=== PATIENT | female | born 1965 | race Caucasian/White ===

== ENCOUNTER → 2017-10-11 11:32 | Outpatient (CLI) | payer OTHER, SELFPAY ==
[2017-10-14 09:33] LABS: HPV Reflexed? NOT INDICATED
== END ==
PROVIDERS: Visit Provider Obstetrics & Gynecology
DX: Z01.419 Encounter for gynecological examination (general) (routine) without abnormal findings (principal); Z12.4 Encounter for screening for malignant neoplasm of cervix
CPT/HCPCS: 88175; G0145

== ENCOUNTER → 2017-11-02 07:00 | Outpatient (CLI) | payer OTHER, SELFPAY ==
--- NOTE | 2017-11-02 07:00 | DT_ITS ---
This patient was seen during an EMR downtime October 31, 2017 - November 07, 2017. This patient may have a combination of paper and electronic documentation or all paper documentation. All documentation is viewable within the e-chart portion of [employer] for each patient visit.
--- NOTE | 2017-11-02 07:13 | BI_ITS ---
MAMMOGRAPHY - BILATERAL SCREENING REASON FOR EXAM: Female, 52 years old. Routine annual screening examination. PERTINENT HISTORY: Non-contributory. Remote stereotactic biopsy in the upper outer quadrant of the left breast. TECHNIQUE: Digital bilateral breast cassandra (3D mammographic acquisition) in the CC and MLO projections. 2-D mediolateral oblique (MLO) and craniocaudad (CC) views of both breasts were obtained. CAD: Full Field Digital Mammography with Computer Added Detection was performed. COMPARISON: Comparison is made with prior study dated March 18, 2014 and December 15, 2015. FINDINGS: Breast Composition: The breasts are heterogeneously dense, which may obscure small masses. A tissue clip marker is seen in a small stable nodular density in the upper outer quadrant of the left breast. There now is evidence of a microcalcifications in the upper slightly deep medial portion of the left breast. These are new as compared to prior study. A biopsy is recommended for further evaluation. No other significant abnormalities are identified. BI/SCREENING MAMM (CAD), BILAT IMPRESSION: Microcalcifications in the upper slightly medial deep portion of the left breast as described. A biopsy is recommended for further evaluation. ASSESSMENT CATEGORY: BIRADS Category 4: Suspicious - Biopsy Should Be Considered. A letter regarding these results will be sent to the patient by the facility within 30 days. Approximately 10% of breast cancers are not detected by mammography. A normal mammogram should not delay biopsy of a clinically suspicious abnormality. [id number] Electronically Signed: Rodrick Patten MD at 8:27 EDT Tel [phone], Service support ,
== END ==
PROVIDERS: Visit Provider Obstetrics & Gynecology
DX: Z12.31 Encounter for screening mammogram for malignant neoplasm of breast (principal)
CPT/HCPCS: 77063; 77067

== ENCOUNTER → 2017-11-23 15:21 | Outpatient (CLI) | payer OTHER, SELFPAY ==
--- NOTE | 2017-11-23 15:23 | US_ITS ---
STUDY: ULTRASOUND BREAST - LEFT REASON FOR EXAM: Female, 52 years old. Abnormal screening mammogram. TECHNIQUE: Axial and longitudinal images of the LEFT breast were performed with a high resolution ultrasound transducer. COMPARISON: Comparison is made with prior mammogram dated November 02, 2017 and prior ultrasound of the left breast dated January 04 FINDINGS: LEFT Breast: There is a 1.1 cm x 0.6 cm x 1 cm hypoechoic irregular solid nodule at the 10:00 position of the breast at 3 cm from the nipple. Posterior shadowing is seen. This has changed as compared to prior study. A biopsy is recommended. US/Breast Limited Unilateral IMPRESSION: 1.1 cm x 0.6 cm x 1.0 cm hypoechoic irregular solid nodule at the 10:00 position breast at 3 cm from nipple. A biopsy is recommended. ASSESSMENT CATEGORY: BIRADS Category 4: Suspicious - Biopsy Should Be Considered. A letter regarding these results will be sent to the patient by the facility within 30 days. Electronically Signed: Rodrick Patten MD at 7:56 EDT Tel [phone], Service support ,
== END ==
PROVIDERS: Visit Provider Surgery
DX: R92.8 Other abnormal and inconclusive findings on diagnostic imaging of breast (principal)
CPT/HCPCS: 76642

== ENCOUNTER → 2017-12-02 13:37 | Outpatient (CLI) | payer OTHER, SELFPAY ==
--- NOTE | 2017-12-02 | BRBX_PTH ---
PATIENT: SHELBY WORKMAN LOC: [facility] U#:[id number] AGE/SX: 59/F ROOM: RE12/02/[address]: Dr. 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 3.2 mm AM:mago 12/06/17 COMMENT ER/FL/Uyh7njn studies are being performed on sections of tumor and the results from this study will be reported separately ([id number]). Case has been reviewed in consultation with Dr. Angel who concurs with the above diagnosis. IDC:SJ MICROSCOPIC DESCRIPTION Slides are reviewed. GROSS DESCRIPTION Received in fixative is one container labeled with the patient's name and designated left breast. The specimen consists of multiple elongated fragments of ferrell-yellow fibroadipose tissue that in aggregate measure 1.5 x 0.3 x 0.1 cm. The entire specimen is submitted in one cassette. / MARZENA:mago 12/05/17 TC:0 CPT: 80376
--- NOTE | 2017-12-02 | IMM_PTH ---
PATIENT: SHELBY WORKMAN LOC: [facility] U#:[id number] AGE/SX: 59/F ROOM: RE12/02/[address]: Dr. Dameon Vo MD : 1965 BED: DIS: SPEC #: [id number] RECD: 12/06/17 13:55 STATUS: CARYN BRAD #: [id number] ODALIS: 12/02/17 00:[address]: Dameon Vo DEPT: IMMUNOHISTOCHEMISTRY RECD BY: Mary Anne Erickson Tissues: Left breast, NOS Procedures: CALPONIN-1 (add) CK5-6 (add) CK8 (add) E-CAD (add) HER2 SHABBIR (add) KI-67 (add) P53 (add) KS (add) P40 (add) ER (initial) PHYSICIAN & INSTITUTION [facility] [phone] SPECIMEN INFORMATION: Tissue Source: Left breast tissue Clinical Info: Abnormal left breast ultrasound Specimen Number: [id number] CPT code: 96877, 32406 x6, 04958 x3 METHODOLOGY: Deparaffinized sections of prefer/formalin-fixed tissue or PAP/DQ stained slides are incubated with monoclonal/polyclonal antibodies/oligonucleotide probes. Localization is made via biotin free immunoperoxidase method. Appropriate controls are performed and reacted as expected. Results on target cell population are indicated in the following table: RESULTS: ANTIBODY / CLONE RESULT P53 (DO-7) positive, >50% Ki-67 (30-9) positive, moderate CK8 (10itkoC82) positive CK5-6 (D5 & 1684) negative Calponin-1 (NN539I) negative P40 (BC28) negative E-Cad (ECH-6) positive MORPHOMETRIC ANALYSIS ER (clone 6F11) >95%, moderate KS (clone 16/1E2) 50%, moderate Her-2Neu (clone CB11) 3+ The prognostic test for HER2 is performed on formalin-fixed paraffin embedded tissue. A 3+ (positive) staining pattern is defined as intense, homogeneous, complete, circumferential membranous staining in >10% of contiguous tumor cells. A similar weak (2+) staining pattern is interpreted as equivocal. DEDRA follow-up testing is recommended for all equivocal cases. Positivity/negativity for ER/KS is reported if > or < 1% of the tumor cells are immuno- reactive, respectively. The ASCO/CAP criteria is used for scoring. Reference: Journal of Clinical Oncology, 2013; 31:3687-0066 & 2010; 16:4588-1738. Duration of fixation: __ Hrs; Sample Adequate: Yes. These assays have not been validated on decalcified tissues. Results should be interpreted with caution given the likelihood of false negativity on decalcified specimens. These tests were developed and their performance characteristics determined by [facility]. They may not have been cleared or approved by the U.S. Food and Drug Administration. The FDA has determined that such clearance or approval is not necessary. INTERPRETATION: Left breast, core biopsy: Invasive ductal carcinoma, nuclear grade 3/3. Positive for estrogen receptors (favorable prognostic indicator). Positive for progesterone receptors (favorable prognostic indicator). Positive for overexpression of PPM7brj. AM:mago 12/08/17 Case has been reviewed in consultation with Dr. Angel who concurs with the above diagnosis. IDC:SJ
== END ==
PROVIDERS: Visit Provider Surgery
DX: R92.8 Other abnormal and inconclusive findings on diagnostic imaging of breast (principal); C50.912 Malignant neoplasm of unspecified site of left female breast
CPT/HCPCS: 88305; 88341; 88342

== ENCOUNTER → 2017-12-06 07:54 | Outpatient (CLI) | payer OTHER, SELFPAY ==
--- NOTE | 2017-12-06 | IMM_PTH ---
PATIENT: SHELBY WORKMAN LOC: [facility] U#:[id number] AGE/SX: 59/F ROOM: RE12/06/[address]: Dr. Dameon Vo MD : 1965 BED: DIS: SPEC #: [id number] RECD: 12/07/17 13:44 STATUS: CARYN REMarline #: [id number] ODALIS: 12/06/17 00:[address]: Dameon Vo DEPT: IMMUNOHISTOCHEMISTRY RECD BY: Mary Anne Erickson ENTERED: 12/07/17 13:45 SP TYPE: IMMUNO OTHR DR: No Primary Care Phys Tissues: Left breast, NOS Procedures: E-CAD (initial) CALPONIN-1 (add) CK8 (add) P40 (add) PHYSICIAN & INSTITUTION [facility] [phone] SPECIMEN INFORMATION: Tissue Source: Left breast tissue Clinical Info: Left breast 10 o?clock microcalcifications Specimen Number: [id number] CPT code: 81597, 06838 x3 METHODOLOGY: Deparaffinized sections of prefer/formalin-fixed tissue or PAP/DQ stained slides are incubated with monoclonal/polyclonal antibodies/oligonucleotide probes. Localization is made via biotin free immunoperoxidase method. Appropriate controls are performed and reacted as expected. Results on target cell population are indicated in the following table: RESULTS: ANTIBODY / CLONE RESULT E-Cad (ECH-6) positive CK8 (18dyezK84) positive P40 (BC28) positive Calponin-1 (CN018R) positive These tests were developed and their performance characteristics determined by [facility]. They may not have been cleared or approved by the U.S. Food and Drug Administration. The FDA has determined that such clearance or approval is not necessary. INTERPRETATION: Left breast, stereotactic biopsy: Ductal carcinoma in situ. SJ:mago 12/07/17
--- NOTE | 2017-12-06 08:30 | BRBX_PTH ---
PATIENT: SHELBY WORKMAN LOC: [facility] U#:[id number] AGE/SX: 59/F ROOM: RE12/06/[address]: Dr. Dameon Vo MD : 1965 BED: DIS: SPEC #: [id number] RECD: 12/06/17 09:45 STATUS: CARYN BRAD #: [id number] ODALIS: 12/06/17 08:[address]: Dameon Vo DEPT: SURGICAL PATHOLOGY RECD BY: Cora Whiting ENTERED: 12/06/17 10:21 SP TYPE: BREAST BX OTHR DR: No Primary Care Phys Tissues: Left breast, NOS Procedures: Surgery Specimen Level IV HEADER OPERATION: Left stereotactic breast biopsy PRE-OP DIAGNOSIS: Left breast 10 o?clock microcalcifications TISSUE SUBMITTED: Left breast core tissue ISCHEMIC TIME: 1 minute FIXATION TIME: 10.5 hours MICROSCOPIC DIAGNOSIS Left breast, 10 o?clock microcalcification, stereotactic core biopsy: Ductal carcinoma in situ with the following characteristics: Pattern ? solid and comedo pattern. Nuclear Grade ? high nuclear grade. Necrosis ? present, central (expansive comedo necrosis). Calcifications - present See comment. MARZENA:mago 12/07/17 COMMENT Immunohistochemistry ([id number]) supports the above diagnosis. Please make reference to previous specimen [id number], left breast, ultrasound guided core biopsy with diagnosis of invasive ductal carcinoma. Case has been reviewed in consultation with Dr. Arango who concurs with the above diagnosis. IDC:AM MICROSCOPIC DESCRIPTION Slides are reviewed. GROSS DESCRIPTION Received is one container labeled with the patient's name and not further designated. The specimen consists of multiple fragments of ferrell-yellow fibroadipose tissue that in aggregate measure 5 x 3 x 0.2 cm. The entire specimen is submitted in two cassettes. / MARZENA:mago 12/06/17 TC:0 CPT: 06689
--- NOTE | 2017-12-06 08:55 | OP.PCM_ITS ---
Problem List (1) Abnormal mammogram of left breast Status: Acute Report of Operation Date of Procedure: 12/06/17 Pre-Operative Diagnosis: Clustered microcalcifications upper inner left breast Post-Operative Diagnosis: Same Surgery/Procedure Performed:: Stereotactic needle core biopsy upper inner left breast clustered calcifications Description of Surgical Findings:: Timeout and informed consent was obtained. 52-year-old female was taken to the stereotactic room. She was placed prone on the table. The left breast was placed in the cc view. The clustered microcalcifications in question were identified. There was no marking clip in place from her recent ultrasound- guided biopsy. Stereotactic images were obtained. Digital information was obtained on the single target site. The breast was prepped with Betadine. 1% lidocaine was used as local anesthetic. A total of 9 cc was used. A small stab incision was created. An 8-gauge resolve needle was advanced to prefire depth. Prefire films were obtained. The device was then fired. 6 separate cores were obtained. Specimen mammograms were obtained. All cores had areas of microcalcifications present. A mini marking clip was left at the 12 o'clock position. She was released from the device. Pressure was held for hemostasis. The specimens were immediately transferred to formalin. Blood loss minimal no apparent complications. She was given activity and wound care instructions after Steri-Strips Telfa and OpSite dressings applied. She is scheduled to return to the office in 2 days time to discuss pathology. Progress and prognosis at this point felt to be good. Specimens include the cores. Drains none. Blood loss minimal Dameon Vo M.D., F.A.C.S. Type of Anesthesia:: Local
== END ==
PROVIDERS: Visit Provider Surgery
DX: D05.12 Intraductal carcinoma in situ of left breast (principal); R92.8 Other abnormal and inconclusive findings on diagnostic imaging of breast
CPT/HCPCS: 19081; 88305; 88341; 88342; J7050

== ENCOUNTER → 2017-12-15 13:20 | Outpatient (CLI) | payer OTHER, SELFPAY ==
--- NOTE | 2017-12-15 13:48 | MRI_ITS ---
STUDY: BILATERAL BREAST MR WITHOUT AND WITH CONTRAST REASON FOR EXAM: Female, 52 years old. Biopsy-proven left breast cancer. History of 2 biopsies. TECHNIQUE: Multi-sequence multi-echo imaging of both breasts was performed with a dedicated breast coil. T1-weighted and T2-weighted images were performed before the administration of contrast. T1-weighted images were also performed after the administration of 8 mL of Gadavist contrast intravenously without complications. COMPARISON: Ultrasound images dated November 23, 2017, bilateral screening mammogram dated November 02, 2017 and stereotactic images dated December 06, 2009. FINDINGS: RIGHT BREAST: The breast tissue is scattered fibroglandular densities with moderate background enhancement. There is asymmetric glandular tissue in the upper outer quadrant of the right breast showing fibrocystic-type enhancement. There are no abnormal enhancing masses or areas of non-mass enhancement in the right breast. LEFT BREAST: The breast tissue is scattered fibroglandular densities with moderate background enhancement. In the upper inner quadrant of the left breast there is an area of clumped kgj-ykmm-lvnn enhancement measuring approximately 4.5 cm x 3.3 cm x 4 cm. This enhancement is confined to the upper inner quadrant of the breast. There is a tissue clip artifact superiorly from one biopsy. There is a seroma cavity more inferiorly and medially measuring 1.4 x 1.3 cm with a tissue clip artifact within it. There are no enlarged or abnormal lymph nodes. There is no abnormality in the visualized regions of the chest or liver. MRI/Breast w/o and/or W Cont Bilat IMPRESSION: Moderate enhancement of both breasts as described. Clumped tae-isiq-rbni enhancement in the upper inner quadrant corresponding to the abnormality seen on mammogram measuring 4.5 cm x 3.3 cm x 4 cm. No abnormal adenopathy present. CATEGORY: BIRADS Category 6: Known Biopsy-Proven Malignancy - Appropriate Action Should Be Taken. A letter regarding these results will be sent to the patient by the facility within 30 days. Electronically Signed: Myke Grullon MD at 19:56 EDT , Service support ,
== END ==
PROVIDERS: Visit Provider Surgery
DX: C50.912 Malignant neoplasm of unspecified site of left female breast (principal)
CPT/HCPCS: 77059; A9585; C8908

== ENCOUNTER → 2017-12-27 12:59 | Outpatient (CLI) | payer OTHER, SELFPAY ==
--- NOTE | 2017-12-27 13:08 | ECHOD_ITS ---
Reason For Study: PRE CHEMO Procedure This was a 2D Doppler, Color Flow transthoracic echocardiogram. The exam was of adequate technical quality. Exam performed in department. Left Ventricle Normal LV size. Apical false tendon noted. Left ventricular systolic function is normal. The estimated ejection fraction is 65 %. Normal diastology for age. No regional wall motion abnormalities noted. Right Ventricle Normal RV size. Normal systolic function. Atria Normal left atrium. Normal right atrium. No doppler evidence for ASD. Mitral Valve There is no mitral annular calcification. Normal mitral valve. Trivial mitral valve insufficiency. Tricuspid Valve Normal tricuspid valve. Trivial tricuspid valve insufficiency. Aortic Valve Trisinus/trileaflet aortic valve. Mild focal aortic valve thickening. Pulmonic Valve The pulmonic valve is not well visualized. Trivial pulmonic valve insufficiency. Great Vessels Normal sized aortic root. Pericardium/Pleural No pericardial effusion. MMode/2D Measurements & Calculations LVIDd: 4.3 cm IVSd: 0.82 cm Ao root diam: 3.1 cm LVIDs: 2.8 cm LVPWd: 0.90 cm LA dimension: 3.3 cm RVDd: 3.1 cm FS: 33.9 % LAV(MOD-bp): 46.6 ml LA A4 area: 14.8 cm2 RA A4 area: 12.2 cm2 LAV(MOD-bp) Indexed: 26.2 ml/m2 LAV(MOD-sp2): 46.7 ml LAV(MOD-sp4): 40.2 ml Time Measurements MV dec time: 0.25 sec Doppler Measurements & Calculations MV E max anibal: 88.4 cm/sec Lat Peak E' Anibal: 9.5 cm/sec Med Peak E' Anibal: 7.5 cm/sec MV A max anibal: 72.9 cm/sec E/E' lat: 9.3 E/E' med: 11.8 MV E/A: 1.2 Ao V2 max: 128.4 cm/sec LV V1 max: 100.7 cm/sec Ao max P.6 mmHg LV V1 max P.1 mmHg Interpretation Summary The estimated ejection fraction is 65 %. Apical false tendon noted. Trivial mitral valve insufficiency. Trivial tricuspid valve insufficiency. Mild focal aortic valve thickening. Trivial pulmonic valve insufficiency. Normal diastology for age. Comment: GLPS average: - 23% (normal range: -18% or more negative) Ordering Physician: [place] Pugh Referring Physician: [place] Pugh D Performed By: Marija Cornejo, MIGUEL, RVT
== END ==
PROVIDERS: Visit Provider Internal Medicine Hematology & Oncology
DX: Z01.818 Encounter for other preprocedural examination (principal)
CPT/HCPCS: 93306

== ENCOUNTER 2017-12-28 11:29 | Day surgery (SDC) | payer OTHER, SELFPAY ==
[2017-12-28] VITALS (7 sets, daily range): BP systolic 120–149; BP diastolic 79–90; PULSE 76–91; RESP 16–18; TEMP 36–36.6; O2SAT 78–100; BMI 27.6
--- NOTE | 2017-12-28 11:38 | EKG12_ITS ---
Test Reason : PREOP Blood Pressure : / mmHG Vent. Rate : 087 BPM Atrial Rate : 087 BPM P-R Int : 114 ms QRS Dur : 074 ms QT Int : 368 ms P-R-T Axes : 016 044 048 degrees QTc Int : 442 ms Normal sinus rhythm Normal ECG Confirmed by RONNA BAUTISTA, ALONZO ([id number]), image editor ANTONIETTA ALLEN ([id number]) on 01/02/2018 4:08:29 PM Referred By: Dameon Vo Confirmed By:ALONZO FRIEND MD
[2017-12-28 12:06] LABS: Mean Corp Hgb Conc 32.4 g/gl (32-36); Mean Corpuscular Hgb 25.4 pg (27.0-32.0); Mean Corpuscular Volume 78.2 fL (81-99); Mean Platelet Vol. 9.5 fl (6.2-12.0); Platelet Count 337 K/mm3 (150-450); RBC Distribution Width CV 16.1 % (11.6-14.6); Red Blood Count 4.73 M/mm3 (4.2-5.4); White Blood Count 5.3 K/mm3 (4.4-11.0)
[2017-12-28 12:07] LABS: Scan Indicated on CBC? Y/N NO
[2017-12-28 12:23] LABS: Anion Gap 8 (5-15); BUN 10 mg/dL (7-18); BUN/Creat Ratio 9.4 RATIO (10-20); Calcium,Total 8.7 mg/dL (8.5-10.1); Chloride 108 mmol/L (98-107); Creatinine, Serum 1.06 mg/dL (0.55-1.02); EST Glomerular Filtration Rate 58 mL/min (>60); Est Glom Filt Rate - Afr Amer 70 mL/min (>60); Estimated Creatinine Clearance 53.61 ml/min; Glucose 94 mg/dL (74-106); Potassium 4.3 mmol/L (3.5-5.1); Sodium Level 140 mmol/L (136-145)
--- NOTE | 2017-12-28 13:26 | DCINST_ITS ---
Discharge Diet: No Restrictions - Pain medication may cause nausea. You should typically eat light foods as you take your pain medication. Discharge Activity: Return to Normal Activity, May Shower - Leave the bandage on for 2-3 days. When you remove the bandage, leave the steri-strips intact until they fall off. Additional Activity Instructions:: May not drive, work with heavy equipment, or sign legal documents for [address] if you are no longer taking narcotic pain medications. Additional Dressing/Incision Instructions:: Leave the bandage on for 2-3 days. When you remove the bandage, leave the steri-strips intact until they fall off. Allergies/Adverse Reactions: Allergies No Known Allergies Allergy (Verified 12/27/17 14:44) Medications to take at Discharge cetirizine 10 mg capsule 10 mg PO QDAY 12/14/17 diazepam 5 mg tablet 5 mg PO .4x/day PRN #30 tab 12/14/17 Dexamethasone [Decadron] 8 mg PO BID 63 Days #36 tab 12/21/17 Lidocaine/Prilocaine [Lidocaine-Prilocaine Cream] 30 gm TP DAILY PRN PRN #1 cream..g. 12/21/17 Ondansetron HCl [Zofran] 4 mg PO Q8H PRN PRN #30 tab 12/21/17 Primary Care Physician: Care Physician,No Primary [Primary Care Provider] - Test Results: Test results from this visit will be discussed in further detail at your follow- up appointment, if applicable. Please Follow Up With: Dameon Vo MD - [phone] When: Office follow up once completed with oncology care
[2017-12-28] MEDS: Cefazolin 2 GM in 0.9% Normal Saline 100 ML IV (13:54)
[2017-12-28] MEDS: Bupivacaine Mpf 0.5% 30 ML VIAL (14:14)
--- NOTE | 2017-12-28 14:42 | PCM.OPRPT ---
Problem List (1) Cancer of left female breast Status: Acute Qualifiers: Breast location: upper inner quadrant of breast Estrogen receptor status: positive Qualified Code(s): C50.212 - Malignant neoplasm of upper-inner quadrant of left female breast; Z17.0 - Estrogen receptor positive status [ER+] Report of Operation Date of Procedure: 12/28/17 Pre-Operative Diagnosis: Upper inner quadrant left breast cancer Post-Operative Diagnosis: Same Surgery/Procedure Performed:: Right internal jugular 6 [place] PowerPort placement Description of Surgical Findings:: Timeout and informed consent was obtained. 52-year-old female was taken to the operating room. Placed on the table. Ancef 2 g given intravenous preoperatively. The right neck and chest were sterilely prepped draped. 1% lidocaine mixed 50-50 with 0.5% Marcaine was used as local anesthetic. Under ultrasound guidance local was instilled in the right neck. Micropuncture needle inserted. Micropuncture wire inserted. Fluoroscopy demonstrated good positioning. Local instilled down upon the right chest wall. Total of 15 cc was used. Transverse incision was made right midclavicular line second intercostal space. Electrocautery was used to make a subtenons pocket. The tubing was tunneled from the chest to the neck site. Micropuncture sheath was placed over the wire. 3 5 J-wire was inserted. The sheath dilator was inserted. The wire and dilator were removed. The catheter was advanced to the sheath. The sheath was split. The catheter was positioned at the SVC atrial junction. The catheter was amputated to length connected the port and secured there with a port attachment device. The port was placed in the pocket secured with interrupted 2-0 silk. The skin edges were approximated with interrupted 3-0 Vicryl subdermal stitches. The neck was closed with interrupted 5-0 Vicryl subdermal stitches. The port was accessed it aspirated easily was flushed with saline and then 2.5 cc of heparinized saline. Steri-Strips Telfa and OpSite dressings were applied. Sponge and instrument and needle count were reported the surgeon to be correct. Blood loss was minimal. No apparent complication. He tolerated procedure well was taken to the recovery area in satisfactory condition. Stat portable chest x-ray is pending. No specimens. No drains. Blood loss minimal. Dameon Vo M.D., F.A.C.S. Type of Anesthesia:: Local MAC Anesthesiologist: Cecilio Hodge
--- NOTE | 2017-12-28 14:46 | OP.PCM_ITS ---
Problem List (1) Cancer of left female breast Status: Acute Qualifiers: Breast location: upper inner quadrant of breast Estrogen receptor status: positive Qualified Code(s): C50.212 - Malignant neoplasm of upper-inner quadrant of left female breast; Z17.0 - Estrogen receptor positive status [ER+] Report of Operation Date of Procedure: 12/28/17 Pre-Operative Diagnosis: Upper inner quadrant left breast cancer Post-Operative Diagnosis: Same Surgery/Procedure Performed:: Right internal jugular 6 [place] PowerPort placement Description of Surgical Findings:: Timeout and informed consent was obtained. 52-year-old female was taken to the operating room. Placed on the table. Ancef 2 g given intravenous preoperatively. The right neck and chest were sterilely prepped draped. 1% lidocaine mixed 50-50 with 0.5% Marcaine was used as local anesthetic. Under ultrasound guidance local was instilled in the right neck. Micropuncture needle inserted. Micropuncture wire inserted. Fluoroscopy demonstrated good positioning. Local instilled down upon the right chest wall. Total of 15 cc was used. Transverse incision was made right midclavicular line second intercostal space. Electrocautery was used to make a subtenons pocket. The tubing was tunneled from the chest to the neck site. Micropuncture sheath was placed over the wire. 3 5 J-wire was inserted. The sheath dilator was inserted. The wire and dilator were removed. The catheter was advanced to the sheath. The sheath was split. The catheter was positioned at the SVC atrial junction. The catheter was amputated to length connected the port and secured there with a port attachment device. The port was placed in the pocket secured with interrupted 2-0 silk. The skin edges were approximated with interrupted 3- 0 Vicryl subdermal stitches. The neck was closed with interrupted 5-0 Vicryl subdermal stitches. The port was accessed it aspirated easily was flushed with saline and then 2.5 cc of heparinized saline. Steri-Strips Telfa and OpSite dressings were applied. Sponge and instrument and needle count were reported the surgeon to be correct. Blood loss was minimal. No apparent complication. He tolerated procedure well was taken to the recovery area in satisfactory condition. Stat portable chest x-ray is pending. No specimens. No drains. Blood loss minimal. Dameon Vo M.D., F.A.C.S. Type of Anesthesia:: Local MAC Anesthesiologist: Cecilio Hodge
--- NOTE | 2017-12-28 14:55 | RAD_ITS ---
STUDY: X-RAY CHEST REASON FOR EXAM: Female, 52 years old. Port placement. TECHNIQUE: Single AP portable view of the chest. COMPARISON: None. FINDINGS: A right-sided portacatheter has been placed. The tip is in the proximal superior vena cava. The lungs are clear and expanded. There is no demonstrated pleural abnormality. Normal size heart. Normal mediastinum and mandi. Normal visualized pulmonary arteries. Normal visualized aortic arch and descending thoracic aorta. Normal visualized thoracic spine. Normal visualized ribs, clavicles, and shoulders. There is no demonstrated abnormality of the visualized soft tissue structures of the upper abdomen. EKG electrodes are seen.__ RAD/Chest 1 View (Portable) IMPRESSION: The tip of the portacatheter is in the proximal portion of the superior vena cava. There is no evidence of pneumothorax. Electronically Signed: Rodrick Patten MD at 15:40 EDT Tel [phone], Service support ,
== END 2017-12-28 16:16 | disposition home or self-care (01) ==
LOC: SDC 11:30 → AC 11:31
PROVIDERS: Visit Provider Surgery
PROC: (CPT 36561; principal; 2017-12-28 13:45)
DX: C50.212 Malignant neoplasm of upper-inner quadrant of left female breast (principal); Z17.0 Estrogen receptor positive status [ER+]; Z78.0 Asymptomatic menopausal state; Z79.52 Long term (current) use of systemic steroids; Z79.899 Other long term (current) drug therapy; Z98.51 Tubal ligation status
CPT/HCPCS: 36561; 76937; 71045; 77001; 80048; 85027; 93005; J7120; C1788

== ENCOUNTER → 2018-03-30 14:43 | Outpatient (CLI) | payer OTHER, SELFPAY ==
--- NOTE | 2018-03-30 14:46 | ECHODONC_ITS ---
Reason For Study: HIGH RISK MEDS Procedure This was a 2D Doppler, Color Flow transthoracic echocardiogram. Myocardial strain analysis was performed in this exam to aid in the assessment of cardiac function. Exam performed in department. Left Ventricle Normal LV size. Left ventricular systolic function is normal. The estimated ejection fraction is 60 %. The global longitudinal strain is normal. The global longitudinal strain = -21.7 % (normal). No regional wall motion abnormalities noted. Right Ventricle Normal RV size. Normal systolic function. Atria Normal left atrium. Normal right atrium. Mitral Valve Normal mitral valve. Tricuspid Valve Normal tricuspid valve. Aortic Valve Normal aortic valve. Trisinus/trileaflet aortic valve. Pulmonic Valve Normal pulmonic valve. Great Vessels Normal aortic root. Pericardium/Pleural No pericardial effusion. MMode/2D Measurements & Calculations LVIDd: 4.1 cm IVSd: 0.84 cm Ao root diam: 3.2 cm LVIDs: 2.8 cm LVPWd: 0.89 cm RVDd: 2.6 cm FS: 30.6 % LAV(MOD-bp): 30.5 ml LA A4 area: 13.6 cm2 LA dimension(2D): 3.2 cm LAV(MOD-bp) Indexed: 17.9 ml/m2 LAV(MOD-sp2): 31.0 ml LAV(MOD-sp4): 30.5 ml RA A4 area: 11.7 cm2 Time Measurements MV dec time: 0.21 sec Doppler Measurements & Calculations MV E max anibal: 71.2 cm/sec Lat Peak E' Anibal: 8.8 cm/sec Med Peak E' Anibal: 6.7 cm/sec MV A max anibal: 80.6 cm/sec E/E' lat: 8.1 E/E' med: 10.6 MV E/A: 0.88 Ao V2 max: 144.3 cm/sec LV V1 max: 121.5 cm/sec PA V2 max: 96.1 cm/sec Ao max P.3 mmHg LV V1 max P.9 mmHg TR max anibal: 207.4 cm/sec TR max P.2 mmHg Interpretation Summary Normal LV size. Left ventricular systolic function is normal. The estimated ejection fraction is 60 %. The global longitudinal strain is normal. The global longitudinal strain = -21.7 % (normal). The prior global longitudinal strain was -23 % . Ordering Physician: Lindsay Tyler Referring Physician: Lindsay Tyler Performed By: Marija Cornejo, TIFFANIECS, RVT
== END ==
PROVIDERS: Referring Provider Nurse Practitioner Family; Visit Provider Nurse Practitioner Family
DX: Z51.81 Encounter for therapeutic drug level monitoring (principal); C50.912 Malignant neoplasm of unspecified site of left female breast
CPT/HCPCS: 0399T; 93306

== ENCOUNTER → 2018-05-02 15:56 | Outpatient (CLI) | payer OTHER, SELFPAY ==
[2018-04-24 09:51] VITALS: BMI 26.6
--- NOTE | 2018-05-02 15:57 | ECHOCSONC_ITS ---
Reason For Study: MALIGNANT NEOPLASM OF BREAST Procedure This was a 2D Doppler, Color Flow transthoracic echocardiogram. Myocardial strain analysis was performed in this exam to aid in the assessment of cardiac function. Exam performed in department. Left Ventricle Normal LV size. Left ventricular systolic function is normal. The estimated ejection fraction is 60 %. Stage 1 diastolic dysfunction. The global longitudinal strain = -21.1 % (normal). No regional wall motion abnormalities noted. Right Ventricle Normal RV size. Normal systolic function. Atria Normal left atrium. Normal right atrium. Mitral Valve Normal mitral valve. Tricuspid Valve Normal tricuspid valve. Aortic Valve Normal aortic valve. Trisinus/trileaflet aortic valve. Pulmonic Valve Normal pulmonic valve. Great Vessels Normal aortic root. The pulmonary artery is normal size. Normal inferior vena cava. Pericardium/Pleural No pericardial effusion. MMode/2D Measurements & Calculations LVIDd: 4.3 cm IVSd: 0.78 cm LAV(MOD-bp): 34.7 ml LVIDs: 2.8 cm LVPWd: 0.92 cm LAV(MOD-bp) Indexed: 20.3 ml/m2 RVDd: 2.7 cm FS: 34.9 % LAV(MOD-sp2): 39.4 ml LAV(MOD-sp4): 28.6 ml LA A4 area: 13.3 cm2 RA A4 area: 12.0 cm2 Time Measurements MV dec time: 0.32 sec Doppler Measurements & Calculations MV E max anibal: 79.7 cm/sec Lat Peak E' Anibal: 7.7 cm/sec Med Peak E' Anibal: 6.6 cm/sec MV A max anibal: 93.7 cm/sec E/E' lat: 10.4 E/E' med: 12.1 MV E/A: 0.85 Ao V2 max: 155.9 cm/sec LV V1 max: 113.5 cm/sec PA V2 max: 123.4 cm/sec Ao max P.7 mmHg LV V1 max P.2 mmHg TR max anibal: 189.7 cm/sec TR max P.5 mmHg Interpretation Summary Normal LV size. Left ventricular systolic function is normal. The estimated ejection fraction is 60 %. Stage 1 diastolic dysfunction. The global longitudinal strain = -21.1 % (normal). Ordering Physician: [place] Pugh Referring Physician: [place] Pugh Performed By: Marija Cornejo, MIGUEL, RVT
== END ==
PROVIDERS: Referring Provider Internal Medicine Hematology & Oncology; Visit Provider Internal Medicine Hematology & Oncology
DX: C50.912 Malignant neoplasm of unspecified site of left female breast (principal); Z51.81 Encounter for therapeutic drug level monitoring
CPT/HCPCS: 0399T; 93306; C8929

== ENCOUNTER 2018-05-31 13:29 | Observation (INO) | payer OTHER, SELFPAY ==
[2018-05-09 09:52] VITALS: BMI 26.2
[2018-05-31] VITALS (11 sets, daily range): BP systolic 97–131; BP diastolic 60–94; PULSE 79–110; RESP 14–18; TEMP 36.2–37.1; O2SAT 94–99; BMI 27.1
--- NOTE | 2018-05-31 | IMM_PTH ---
PATIENT: SHELBY WORKMAN LOC: MS3 U#:[id number] AGE/SX: 52/F ROOM: MS324 RE05/31/[address]: Dr. Dameon Vo MD : 1965 BED: 1 DIS: 06/01/2018 SPEC #: [id number] RECD: 06/05/18 13:38 STATUS: CARYN REQ #: [id number] ODALIS: 05/31/18 00:[address]: Dameon Vo DEPT: IMMUNOHISTOCHEMISTRY RECD BY: Mary Anne Erickson ENTERED: 06/05/18 13:39 SP TYPE: IMMUNO OTHR DR: No Primary Care Phys Tissues: A - Axillary lymph node, NOS Procedures: CK7 (add) Pankeratin (add) CK7 (initial) PHYSICIAN & INSTITUTION [place] [id number] SPECIMEN INFORMATION: Tissue Source: A - Left sentinel lymph nodes, biopsy Clinical Info: Left breast cancer Specimen Number: [id number] A1 & A2 CPT code: 57077, 85787 x3 METHODOLOGY: Deparaffinized sections of prefer/formalin-fixed tissue or PAP/DQ stained slides are incubated with monoclonal/polyclonal antibodies/oligonucleotide probes. Localization is made via biotin free immunoperoxidase method. Appropriate controls are performed and reacted as expected. Results on target cell population are indicated in the following table: RESULTS: ANTIBODY / CLONE RESULT Block A1 CK7 (OV-TL12/30) negative AE1-3 (AE1/AE3/PCK26) negative Block A2 CK7 (OV-TL12/30) negative AE1-3 (AE1/AE3/PCK26) negative These tests were developed and their performance characteristics determined by [facility]. They may not have been cleared or approved by the U.S. Food and Drug Administration. The FDA has determined that such clearance or approval is not necessary. INTERPRETATION: A. Left sentinel lymph nodes, biopsy: Three out of three lymph nodes negative for carcinoma. AM:mago 06/06/18
--- NOTE | 2018-05-31 | AXNB_PTH ---
PATIENT: SHELBY WORKMAN LOC: MS3 U#:[id number] AGE/SX: 52/F ROOM: UT324 RE05/31/[address]: Dr. Dameon Vo MD : 1965 BED: 1 DIS: 06/01/2018 SPEC #: [id number] RECD: 05/31/18 11:01 STATUS: CARYN REMarline #: [id number] ODALIS: 05/31/18 00:[address]: Dameon Vo DEPT: SURGICAL PATHOLOGY RECD BY: Mary Anne Erickson ENTERED: 05/31/18 11:41 SP TYPE: AX NODE BX OTHR DR: No Primary Care Phys Tissues: Axillary lymph node, NOS Procedures: Frozen Section (charge) Frozen Section Add'l ([facility]) Surgery Specimen Level V HEADER OPERATION: Mastectomy, sentinel node biopsy, Neoprobe PRE-OP DIAGNOSIS: Left breast cancer TISSUE SUBMITTED: A - Left sentinel node sent for frozen at 1054, B - Left breast, suture dumont axillary tail FROZEN SECTION DIAGNOSIS A. Left sentinel lymph nodes, biopsy: Three out of three lymph nodes, negative for metastatic carcinoma. SJ:mago 05/31/18 MICROSCOPIC DIAGNOSIS A. Left axillary sentinel lymph nodes, biopsy: Three out of three lymph nodes negative for carcinoma. B. Left breast, lumpectomy: Focal changes consistent with previous biopsy. Hyalinized fibroadenoma. Fibrocystic change and involutional change. Focal adenosis. Nipple and skin with no pathologic change. No evidence of malignancy. AM:mago 06/07/18 COMMENT A. Immunohistochemistry ([id number]) supports the above diagnosis. Reference is made to the patient's left breast, ultrasound-guided needle core biopsy from 12/06/17 ([id number]) in which invasive ductal carcinoma was identified. Reference is made to the patient's neoadjuvant therapy with TCHP which began on 01/09/18. Case has been reviewed in consultation with Dr. Angel who concurs with the above diagnosis. IDC:MARZENA MICROSCOPIC DESCRIPTION Slides are reviewed. GROSS DESCRIPTION A - Received fresh for frozen section diagnosis labeled with the patient's name is a specimen designated left sentinel lymph node. The specimen consists of a piece of yellow adipose tissue containing nodules consistent with lymph nodes measuring 0.3 to 1 cm in greatest dimension. The lymph nodes are submitted in entirety for frozen section diagnosis as follows: 1 - frozen section, one lymph node, 2 - frozen section, two lymph nodes (smaller lymph node is inked black). / SJ:mago 05/31/18 B - Received in fixative is one container labeled with the patient's name and designated left breast, suture dumont axillary tail. The specimen consists of a mastectomy specimen consisting of breast tissue with overlying skin ellipse. The breast tissue measures 19 x 19 x 5 cm. The overlying skin ellipse measures 16.5 x 5.5 cm. The nipple measures 1 cm in greatest length. The specimen is inked as follows: superior - blue, inferior - green, medial - red, lateral - orange, posterior - black. No skeletal muscle tissue is noted at the posterior margin. The overlying skin ellipse and nipple and areola appear unremarkable. More dictation will follow after additional fixation. / SJ:mago 05/31/18 Sections reveal a ferrell, indurated fibrous area 1 cm away from the closest deep margin and measuring 1.5 x 1 x 0.7 cm. Sections of the breast tissue reveal dense, ferrell-yellow adipose cut surfaces mixed with ferrell-white fibrous areas. Cytogenetics Technologist sections are submitted in 18 cassettes as follows: 1 - nipple, entirely submitted, 2 & 3 - perpendicular margin and skin, 4-7 - indurated mass area, 8-18 - data entry representative sections from the fibrous areas. Sections will be submitted after additional fixation. / SJ:mago 06/01/18 Additional sections of breast parenchyma are submitted in cassettes -. / AM:mago 06/02/18 TC:5 CPT: 77416 x2, 88392, 68382 x2
--- NOTE | 2018-05-31 | AXNB_PTH ---
PATIENT: SHELBY WORKMAN LOC: MS3 U#:[id number] AGE/SX: 52/F ROOM: LA324 RE05/31/[address]: Dr. Dameon Vo MD : 1965 BED: 1 DIS: 06/01/2018 SPEC #: [id number] RECD: 05/31/18 11:01 STATUS: CARYN REMarline #: [id number] ODALIS: 05/31/18 00:[address]: Dameon Vo DEPT: SURGICAL PATHOLOGY RECD BY: Mary Anne Erickson ENTERED: 05/31/18 11:41 SP TYPE: AX NODE BX OTHR DR: No Primary Care Phys Tissues: Axillary lymph node, NOS Procedures: Frozen Section (charge) Frozen Section Add'l ([facility]) Surgery Specimen Level V HEADER OPERATION: Mastectomy, sentinel node biopsy, Neoprobe PRE-OP DIAGNOSIS: Left breast cancer TISSUE SUBMITTED: A - Left sentinel node sent for frozen at 1054, B - Left breast, suture dumont axillary tail FROZEN SECTION DIAGNOSIS A. Left sentinel lymph nodes, biopsy: Three out of three lymph nodes, negative for metastatic carcinoma. SJ:mago 05/31/18 MICROSCOPIC DIAGNOSIS A. Left axillary sentinel lymph nodes, biopsy: Three out of three lymph nodes negative for carcinoma. B. Left breast, mastectomy: Focal changes consistent with previous biopsy. Hyalinized fibroadenoma. Fibrocystic change and involutional change. Focal adenosis. Nipple and skin with no pathologic change. No evidence of malignancy. AM:mago 06/07/18 AM:mago 06/23/18 COMMENT A. Immunohistochemistry ([id number]) supports the above diagnosis. Reference is made to the patient's left breast, ultrasound-guided needle core biopsy from 12/06/17 ([id number]) in which invasive ductal carcinoma was identified. Reference is made to the patient's neoadjuvant therapy with TCHP which began on 01/09/18. Case has been reviewed in consultation with Dr. Angel who concurs with the above diagnosis. IDC:SJ MICROSCOPIC DESCRIPTION Slides are reviewed. GROSS DESCRIPTION A - Received fresh for frozen section diagnosis labeled with the patient's name is a specimen designated left sentinel lymph node. The specimen consists of a piece of yellow adipose tissue containing nodules consistent with lymph nodes measuring 0.3 to 1 cm in greatest dimension. The lymph nodes are submitted in entirety for frozen section diagnosis as follows: 1 - frozen section, one lymph node, 2 - frozen section, two lymph nodes (smaller lymph node is inked black). / SJ:mago 05/31/18 B - Received in fixative is one container labeled with the patient's name and designated left breast, suture dumont axillary tail. The specimen consists of a mastectomy specimen consisting of breast tissue with overlying skin ellipse. The breast tissue measures 19 x 19 x 5 cm. The overlying skin ellipse measures 16.5 x 5.5 cm. The nipple measures 1 cm in greatest length. The specimen is inked as follows: superior - blue, inferior - green, medial - red, lateral - orange, posterior - black. No skeletal muscle tissue is noted at the posterior margin. The overlying skin ellipse and nipple and areola appear unremarkable. More dictation will follow after additional fixation. / SJ:mago 05/31/18 Sections reveal a ferrell, indurated fibrous area 1 cm away from the closest deep margin and measuring 1.5 x 1 x 0.7 cm. Sections of the breast tissue reveal dense, ferrell-yellow adipose cut surfaces mixed with ferrell-white fibrous areas. Pneumatic Tester sections are submitted in 18 cassettes as follows: 1 - nipple, entirely submitted, 2 & 3 - perpendicular margin and skin, 4-7 - indurated mass area, 8-18 - corporate sales representative sections from the fibrous areas. Sections will be submitted after additional fixation. / SJ:mago 06/01/18 Additional sections of breast parenchyma are submitted in cassettes -. / AM:mago 06/02/18 TC:5 CPT: 21579 x2, 40300, 46626 x2
--- NOTE | 2018-05-31 07:03 | NM_ITS ---
PROCEDURE: NUCLEAR MEDICINE Injection Etna Node - LEFT breast(s). REASON FOR EXAM: Female, 52 years old. History of left breast cancer. TECHNIQUE: Etna node localization using radionuclide methods of the LEFT breast(s) was performed following subcutaneous administration of 1.1 mCi of of sulfur colloid Tc-99m. FINDINGS: 1.1 mCi of technetium labeled sulfur colloid was injected subcutaneously in 4 equal aliquots in the mid upper portion of the left breast at the biopsy site. NM/Lymph Node Injection Only IMPRESSION: Subcutaneous injection of 1.1 mCi of penicillin sulfa colloid for sentinel node imaging. Electronically Signed: Rodrick Patten MD at 9:04 EST Tel [phone], Service support ,
--- NOTE | 2018-05-31 10:05 | PCM.DC.BS ---
Discharge Diet: No Restrictions Discharge Activity: May Not Drive - for 2-3 days or while taking narcotic pain meds. May shower in (days): 7 - May shower after drains are removed Lifting Restrictions: 10 pounds for 1 week. Call your doctor if your incision/area has: Continuous Slow Oozing, Sudden Increased Bleeding Call your doctor if you observe: Fever of 101 or Higher Suture Line Care: Avoid Pulling/Pushing, Avoid Pinching/Bending Remove Dressing in (days):: 1 - Please change her dressings daily. Additional Dressing/Incision Instructions:: Remove bulky dressing tomorrow. You may cleanse the drain sites with a Q-tip and peroxide daily. Reapply dry gauze and tape. Keep the incision and drain sites clean and dry until continued office follow-up Allergies/Adverse Reactions: Allergies No Known Allergies Allergy (Verified 05/19/18 11:41) Medications to take at Discharge NK 05/19/18 Primary Care Physician: Care Physician,No Primary [Primary Care Provider] - Please Follow Up With: Dameon Vo MD When: Office follow-up as discussed with physician. [phone]
--- NOTE | 2018-05-31 11:54 | PCM.OPRPT ---
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 Left total mastectomy Description of Surgical Findings:: Timeout and informed consent was obtained. 52-year-old female was taken the operating room. She had previously undergone nuclear medicine lymphatic tracer injection per radiology protocol. She was taken the operating room placed upon the table. She underwent general endotracheal intubation and anesthesia. The left arm was carefully wrapped with soft roll and placed at right angles of the table. Left retroareolar breast was prepped with alcohol and 2 cc of isosulfan blue dye was injected most. This was performed minutes. The left breast and axilla were sterilely prepped and draped. A transverse elliptical excision performing a total left mastectomy was performed. The superior flap was created with electrocautery. Access was gained to the lymphatic fluid tracking to the left axilla. There was a brilliant blue lymph node however the neoprobe failed to demonstrate significant activity at that site. I dissected out the sentinel node packet used the neoprobe which suggested that there was increased activity actually within the left pectoralis major musculature there was no visible palpable adenopathy at the site of increased activity. The specimen itself actually by nuclear tracer had very little activity but was brilliantly blue. I inspected for any additional lymphatic tracking in all tracts emanated to the site. I then created the inferior flap again using electrocautery taking great care to assure flap viability. Then I excised the specimen taken the pectoralis major fascia of the pectoralis major muscle. The specimen was dissected back laterally to the axilla. A suture was placed in the axillary portion of the transverse ellipse. Hemostasis obtained with electrocautery. The wound was irrigated with sterile water. 2 stab incision was made inferior and laterally and 215 round KAILEE drains were exited. The axillary drain was shortened. Both drains were secured to skin with interrupted 3-0 nylon. The flaps were then approximated with multiple interrupted 3-0 Vicryl subdermal stitches. I then also additionally pleaded the flaps to the pectoralis major with multiple interrupted 3-0 Vicryl sutures to close the space. Interrupted 4-0 Monocryl was utilized as needed to approximate skin edges. Steri-Strips and Telfa and bulky dry dressings and bias ply wrap was applied. The drains were connected to closed bulb suction. Sponge and instrument and needle counts were reported to the surgeon be correct. Pathology reported that 3 sentinel lymph nodes had been submitted and all 3 were negative. There is no evidence of any gross disease at the edges of resection. Blood loss was minimal throughout the procedure. Specimen includes a left axillary sentinel lymph nodes in the left total mastectomy. Drains include 2 round 15 KAILEE drains. She was taken to the recovery area in satisfactory condition without apparent complication Dameon Vo M.D., F.A.C.S. . Type of Anesthesia:: General Anesthesiologist: Ananya Medina
--- NOTE | 2018-05-31 14:59 | NURSING ---
PT AMBULATED WITH SBA IN HALLWAYS, TOLERATED WELL.
[2018-05-31] MEDS: HYDROcodone Bitartrate/Apap 5/325 Tablet PO (17:53)
[2018-06-01] MEDS: HYDROcodone Bitartrate/Apap 5/325 Tablet PO ×2 (02:17→09:07)
[2018-06-01 02:25] VITALS: BP 121/72; PULSE 90; RESP 16; TEMP 36.5; O2SAT 97
[2018-06-01] MEDS: Enoxaparin 40 MG/0.4 ML Syringe SC (05:11)
--- NOTE | 2018-06-01 05:22 | PCM.PN.SRG ---
Subjective: Pt comfortable JPs 20/10 - Physical Exam General: Alert, Oriented x3, Cooperative, No apparent distress Lungs: - - left chest wound very clean and dry Vital Signs Temp Pulse Resp BP Pulse Ox 97.7 F L 90 16 121/72 H 97 06/01/18 02:25 06/01/18 02:25 06/01/18 02:25 06/01/18 02:25 06/01/18 02:25 Oxygen Flow Rate (L/min) 3 Oxygen Delivery Method Room Air Weight: 157 lb 13.616 oz Body Mass Index (BMI) 27.1 Intake and Output for Last 24 Hours 05/30/18 05/31/18 06/01/18 23:59 23:59 23:59 Intake Total 1999 1000 / 1000 Output Total 777 / 777 1247 / 1247 Balance 1223 / 1223 -247 / -247 Medical Necessity - Tobacco Use Smoking Status: Never smoker Tobacco Use: Non-smoker Assessment/Plan All Active Problems (Last Reviewed 05/04/18 @ 09:29 by Sofía Siddiqui) Hypokalemia (Acute) Anemia (Acute) Mucositis (Acute) Diarrhea (Acute) Dehydration (Acute) Sinusitis, acute (Acute) Otitis media (Acute) Cancer of left female breast (Acute) Educational circumstance (Acute) Acquired absence of left breast and nipple (Acute) Disproportion of reconstructed breast (Acute) Estrogen receptor positive status [ER+] (Acute) Excellent progress Ready for discharge
[2018-06-01 09:00] VITALS: BP 146/80; PULSE 90; RESP 16; TEMP 36.6; O2SAT 98
== END 2018-06-01 09:32 | disposition home or self-care (01) ==
LOC: SDC 14:33 → MS3 15:13
PROVIDERS: Admitting Provider Surgery; Referring Provider Surgery; Visit Provider Surgery
PROC: (CPT 19307; principal; 2018-05-31 09:45)
DX: C50.212 Malignant neoplasm of upper-inner quadrant of left female breast (principal); Z17.0 Estrogen receptor positive status [ER+]; D24.2 Benign neoplasm of left breast
CPT/HCPCS: 00400; 19303; 38525; 38792; 88305; 88307; 88331; 88332; 88341; 88342; 96372; 99218; A9541; J7120; A4216; G0378; G0379; J2405; Q9968

== ENCOUNTER → 2018-07-17 08:10 | Outpatient (CLI) | payer OTHER, SELFPAY ==
[2018-07-14 08:44] VITALS: BMI 27.2
[2018-07-17 08:33] LABS: Hematocrit 40.4 % (37-47); Hemoglobin 13.1 g/dl (12.0-15.0); Mean Corp Hgb Conc 32.4 g/gl (32-36); Mean Corpuscular Volume 95.7 fL (81-99); Mean Platelet Vol. 9.1 fl (6.2-12.0); Platelet Count 230 K/mm3 (150-450); RBC Distribution Width CV 12.4 % (11.6-14.6); RBC Distribution Width SD 43.3 fl (35.1-43.9); Red Blood Count 4.22 M/mm3 (4.2-5.4); White Blood Count 5.3 K/mm3 (4.4-11.0)
[2018-07-17 08:35] LABS: Scan Indicated on CBC? Y/N NO
[2018-07-17 08:54] LABS: Cholesterol 184 mg/dL (200); High Density Lipoprotein 48 mg/dL; Triglycerides 112 mg/dL; Very Low Density Lipoprotein 22 mg/dL (5-40)
== END ==
PROVIDERS: Family Provider Internal Medicine; PCP Internal Medicine; Visit Provider Surgery
DX: I10 Essential (primary) hypertension (principal)
CPT/HCPCS: 36415; 80061; 85027

== ENCOUNTER 2018-07-18 05:25 | Day surgery (SDC) | payer OTHER, SELFPAY ==
[2018-06-30 14:30] VITALS: BMI 27.2
[2018-07-14 08:44] VITALS: BMI 27.2
[2018-07-18] VITALS (9 sets, daily range): BP systolic 91–155; BP diastolic 35–100; PULSE 88–114; RESP 18; TEMP 36.3–36.5; O2SAT 96–99; BMI 26.6
--- NOTE | 2018-07-18 07:01 | OP.ENDO_ITS ---
07/18/2018 No Primary Care Physician Re : [facility] This procedure was performed on Wednesday, July 18, 2018. My impressions and recommendations are as follows: Impressions : - Hemorrhoids found on perianal exam. - Tortuous colon. - The examination was otherwise normal. - No specimens collected. Recommendations : - Discharge patient to home. - Resume previous diet. - Continue present medications. - Repeat colonoscopy in 10 years for screening purposes. My findings are described in the full procedure note, which is enclosed. If I can be of further assistance, please feel free to contact me at Doctor phone number(s): Work: . Sincerely, Dameon Vo MD 07/18/2018 7:01:19 AM This report has been signed electronically.
== END 2018-07-18 07:55 | disposition home or self-care (01) ==
LOC: EN 05:26 → AC 05:26
PROVIDERS: Family Provider Internal Medicine; PCP Internal Medicine; Referring Provider Surgery; Visit Provider Surgery
PROC: 0DJD8ZZ Inspection of Lower Intestinal Tract, Via Natural or Artificial Opening Endoscopic (ICD-10-PCS; CPT 45378; principal; 2018-07-18 06:25)
DX: Z12.11 Encounter for screening for malignant neoplasm of colon (principal); K64.9 Unspecified hemorrhoids; C50.912 Malignant neoplasm of unspecified site of left female breast; Z90.12 Acquired absence of left breast and nipple; Z79.810 Long term (current) use of selective estrogen receptor modulators (SERMs); D64.9 Anemia, unspecified
CPT/HCPCS: 45378; 99152; 99153; J7120; A4216

== ENCOUNTER → 2018-07-27 14:44 | Outpatient (CLI) | payer OTHER, SELFPAY ==
[2018-07-14 08:44] VITALS: BMI 27.2
[2018-07-20 09:44] VITALS: BMI 27.1
--- NOTE | 2018-07-27 14:54 | BD_ITS ---
STUDY: DUAL ENERGY X-RAY ABSORPTIOMETRY / DXA REASON FOR EXAM: Female, 52 years old. The patient is a postmenopausal. No loss of height. TECHNIQUE: Bone Mineral Density (BMD) measurements of lumbar spine and bilateral hips were obtained. COMPARISON: None. FINDINGS: Lumbar Spine (L1-L4): g/cm2 (1.090) / T-score (-0.7) / Z-score (0.0) Findings are suggestive of normal bone density with a low fracture risk. Left Femur Total: g/cm2 (0.953) / T-score (-0.4) / Z-score (0.1) Left Femoral Neck: g/cm2 (0.893) / T-score (-1.0) / Z-score (-0.1) Right Femur Total: g/cm2 (0.913) / T-score (-0.8) / Z-score (-0.2) Right Femoral Neck: g/cm2 (0.872) / T-score (-1.2) / Z-score (-0.3) BD/Dexa Bone Density Study IMPRESSION: The patient is considered osteopenic as outlined below according to World Charlie Organization (WHO) criteria with a low fracture risk. Reference Information: The T-score is the number of standard deviations above or below the standard which is normal for young adults at their peak bone mineral density. The World Health Organization (WHO) interprets the T-scores as follows: Above -1 Normal bone density Between -1 and -2.5 Osteopenia Equal to / or below -2.5 Osteoporosis As a practical clinical guideline, osteopenia may be graded as follows: Mild -1 through -1.5 Moderate -1.6 through -2.0 Severe -2.1 through -2.4 The Z-score is the number of standard deviations above or below age-matched controls. A Z-score of less than -1.5 would be considered abnormal. References: 1. NIH Osteoporosis and Related Bone Diseases http://www.osteo.org 2. International Society for Clinical Densitometry http://www.iscd.org 3. National Osteoporosis Foundation http://www.nof.org Electronically Signed: Rodrick Patten, at 16:00 EST , Service support ,
== END ==
PROVIDERS: Family Provider Internal Medicine; PCP Internal Medicine; Referring Provider Internal Medicine; Visit Provider Internal Medicine
DX: Z78.0 Asymptomatic menopausal state (principal); M85.80 Other specified disorders of bone density and structure, unspecified site; Z92.21 Personal history of antineoplastic chemotherapy
CPT/HCPCS: 77080

== ENCOUNTER → 2018-08-01 14:01 | Outpatient (CLI) | payer OTHER, SELFPAY ==
[2018-07-20 09:44] VITALS: BMI 27.1
--- NOTE | 2018-08-01 14:02 | ECHOD_ITS ---
Reason For Study: EF Check Procedure This was a 2D Doppler, Color Flow transthoracic echocardiogram. Myocardial strain analysis was performed in this exam to aid in the assessment of cardiac function. The exam was of adequate technical quality. Exam performed in department. Left Ventricle Normal LV size. Left ventricular systolic function is normal. The estimated ejection fraction is 65 %. The global longitudinal strain = -22 % (normal). Transmitral doppler flow suggestive of impaired relaxation of left ventricle. No regional wall motion abnormalities noted. Right Ventricle Normal RV size. Normal systolic function. Atria Normal left atrium. Normal right atrium. No doppler evidence for ASD. Mitral Valve There is no mitral annular calcification. Normal mitral valve. Trivial mitral valve insufficiency. Tricuspid Valve Normal tricuspid valve. Trivial tricuspid valve insufficiency. Aortic Valve Trisinus/trileaflet aortic valve. Mild focal aortic valve thickening. Pulmonic Valve The pulmonic valve is not well visualized. Great Vessels Normal sized aortic root. Pericardium/Pleural No pericardial effusion. MMode/2D Measurements & Calculations LVIDd: 4.3 cm IVSd: 1.0 cm Ao root diam: 3.3 cm LVIDs: 2.7 cm LVPWd: 0.85 cm LA dimension: 3.2 cm FS: 38.1 % LAV(MOD-bp): 42.3 ml LA A4 area: 13.5 cm2 RA A4 area: 13.4 cm2 LAV(MOD-bp) Indexed: 24.1 ml/m2 LAV(MOD-sp2): 48.1 ml LAV(MOD-sp4): 33.3 ml Time Measurements MV dec time: 0.23 sec Doppler Measurements & Calculations MV E max anibal: 78.2 cm/sec Lat Peak E' Anibal: 8.5 cm/sec Med Peak E' Anibal: 9.4 cm/sec MV A max anibal: 89.5 cm/sec E/E' lat: 9.2 E/E' med: 8.3 MV E/A: 0.87 MV V2 max: 104.9 cm/sec MV P1/2t max anibal: 103.4 cm/sec Ao V2 max: 128.8 cm/sec MV max P.4 mmHg MV P1/2t: 57.0 msec Ao max P.6 mmHg MV V2 mean: 67.2 cm/sec MV dec slope: 531.9 cm/sec2 MV mean P.1 mmHg MVA(P1/2t): 3.9 cm2 MV V2 VTI: 24.7 cm LV V1 max: 111.9 cm/sec PA V2 max: 93.8 cm/sec LV V1 max P.0 mmHg Interpretation Summary Left ventricular systolic function is normal. The estimated ejection fraction is 65 %. The global longitudinal strain = -22 % (normal). Trivial mitral valve insufficiency. Trivial tricuspid valve insufficiency. Mild focal aortic valve thickening. Transmitral doppler flow suggestive of impaired relaxation of left ventricle Ordering Physician: [place] Pugh Referring Physician: [place] Pugh Performed By: Jj Baez RCS
== END ==
PROVIDERS: Family Provider Internal Medicine; PCP Internal Medicine; Referring Provider Internal Medicine Hematology & Oncology; Visit Provider Internal Medicine Hematology & Oncology
DX: C50.919 Malignant neoplasm of unspecified site of unspecified female breast (principal); Z51.81 Encounter for therapeutic drug level monitoring; Z79.899 Other long term (current) drug therapy
CPT/HCPCS: 93306

== ENCOUNTER → 2018-10-30 07:58 | Outpatient (CLI) | payer OTHER, SELFPAY ==
[2018-09-21 09:04] VITALS: BMI 28.1
[2018-10-12 11:08] VITALS: BMI 28.4
--- NOTE | 2018-10-30 08:00 | ECHODONC_ITS ---
Version 2 Reason For Study: Chemo, EF Check Procedure This was a 2D Doppler, Color Flow transthoracic echocardiogram. Myocardial strain analysis was performed in this exam to aid in the assessment of cardiac function. Exam performed in department. Left Ventricle Normal LV size. Left ventricular systolic function is normal. The estimated ejection fraction is 65 %. Normal diastology for age. No regional wall motion abnormalities noted. Right Ventricle Normal RV size. Normal systolic function. Atria Normal left atrium. Normal right atrium. Mitral Valve Normal mitral valve. Tricuspid Valve Normal tricuspid valve. Aortic Valve Normal aortic valve. Trisinus/trileaflet aortic valve. Pulmonic Valve Normal pulmonic valve. Great Vessels Normal aortic root. The pulmonary artery is normal size. Normal inferior vena cava. Pericardium/Pleural No pericardial effusion. MMode/2D Measurements & Calculations LVIDd: 4.3 cm IVSd: 0.98 cm Ao root diam: 3.3 cm LVIDs: 2.6 cm LVPWd: 0.92 cm LA dimension: 3.3 cm RVDd: 3.4 cm FS: 39.2 % LAV(MOD-bp): 39.7 ml LA A4 area: 15.0 cm2 RA A4 area: 13.2 cm2 LAV(MOD-bp) Indexed: 22.3 ml/m2 LAV(MOD-sp2): 48.0 ml LAV(MOD-sp4): 32.2 ml Time Measurements MV dec time: 0.22 sec Doppler Measurements & Calculations MV E max anibal: 98.1 cm/sec Lat Peak E' Anibal: 8.3 cm/sec Med Peak E' Anibal: 8.8 cm/sec MV A max anibal: 90.1 cm/sec E/E' lat: 11.8 E/E' med: 11.2 MV E/A: 1.1 MV V2 max: 112.7 cm/sec MV P1/2t max anibal: 112.7 cm/sec Ao V2 max: 123.3 cm/sec MV max P.1 mmHg MV P1/2t: 61.0 msec Ao max P.1 mmHg MV V2 mean: 66.6 cm/sec MV dec slope: 540.6 cm/sec2 Ao V2 mean: 72.4 cm/sec MV mean P.0 mmHg MVA(P1/2t): 3.6 cm2 Ao mean P.6 mmHg MV V2 VTI: 29.8 cm Ao V2 VTI: 23.4 cm LV V1 max: 95.6 cm/sec PA V2 max: 99.2 cm/sec TR max anibal: 229.6 cm/sec LV V1 max P.7 mmHg TR max P.1 mmHg LV V1 mean P.6 mmHg LV V1 mean: 57.3 cm/sec LV V1 VTI: 21.1 cm Interpretation Summary Normal LV size. Left ventricular systolic function is normal. The estimated ejection fraction is 65 %. Normal diastology for age. The global longitudinal strain is normal. The global longitudinal strain = -21.9 % (normal). The prior global longitudinal strain was -22 % . Ordering Physician: [place]^^^ Referring Physician: [place] Pugh Performed By: Jj Baez RCS
== END ==
PROVIDERS: Family Provider Internal Medicine; PCP Internal Medicine; Referring Provider Internal Medicine Hematology & Oncology; Visit Provider Internal Medicine Hematology & Oncology
DX: C50.912 Malignant neoplasm of unspecified site of left female breast (principal); Z51.81 Encounter for therapeutic drug level monitoring; Z79.899 Other long term (current) drug therapy
CPT/HCPCS: 0399T; 93306

== ENCOUNTER → 2018-11-09 13:35 | Outpatient (CLI) | payer OTHER, SELFPAY ==
[2018-11-02 09:00] VITALS: BMI 28.8
[2018-11-15 11:24] LABS: HPV HC, High Risk Negative (Negative)
== END ==
PROVIDERS: Visit Provider Obstetrics & Gynecology
DX: Z12.4 Encounter for screening for malignant neoplasm of cervix (principal); Z78.0 Asymptomatic menopausal state
CPT/HCPCS: 87624; 88175; G0145

== ENCOUNTER → 2018-11-14 08:50 | Outpatient (CLI) | payer OTHER, SELFPAY ==
[2018-11-02 09:00] VITALS: BMI 28.8
--- NOTE | 2018-11-14 08:58 | BI_ITS ---
MAMMOGRAPHY - UNILATERAL DIAGNOSTIC: RIGHT BREAST REASON FOR EXAM: Female, 53 years old. 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 PERTINENT HISTORY: Personal history of breast cancer. TECHNIQUE: Digital unilateral breast cassandra (3D mammographic acquisition) in the CC and MLO projections. 2-D mediolateral oblique (MLO) and craniocaudad (CC) views of both breasts were obtained. CAD: Full Field Digital Mammography with Computer Added Detection was performed. COMPARISON: Comparison is made with prior study dated 07/05/2017 and December 15, 2015. FINDINGS: Breast Composition: The breasts are heterogeneously dense, which may obscure small masses. There are no dominant masses or suspicious calcifications. No other significant abnormalities are identified. There has been no significant change since the prior study. BI/DIAG MAMM W/CAD, UNILAT IMPRESSION: Stable unilateral diagnostic mammogram. One year follow-up mammogram recommended. (A) ASSESSMENT CATEGORY: BIRADS Category 1: Negative. A letter regarding these results will be sent to the patient by the facility within 30 days. Approximately 10% of breast cancers are not detected by mammography. A normal mammogram should not delay biopsy of a clinically suspicious abnormality. Electronically Signed: Rodrick Patten, at 10:31 EDT , Service support ,
--- NOTE | 2018-11-14 09:49 | US_ITS ---
STUDY: ULTRASOUND BREAST - RIGHT REASON FOR EXAM: Female, 53 years old. Prior left mastectomy. TECHNIQUE: Axial and longitudinal images of the RIGHT breast were performed with a high resolution ultrasound transducer. COMPARISON: Comparison is made with prior mammogram done earlier today. FINDINGS: RIGHT Breast: The retroareolar region of the right breast was examined by ultrasound. No sonographic abnormality is seen. Routine annual mammographic follow-up is recommended. US/Breast Limited Unilateral IMPRESSION: Unremarkable examination. ASSESSMENT CATEGORY: BIRADS Category 1: Negative. A letter regarding these results will be sent to the patient by the facility within 30 days. Electronically Signed: Rodrick Patten, at 10:33 EDT , Service support ,
== END ==
PROVIDERS: Family Provider Internal Medicine; PCP Internal Medicine; Referring Provider Obstetrics & Gynecology; Visit Provider Obstetrics & Gynecology
DX: Z85.3 Personal history of malignant neoplasm of breast (principal)
CPT/HCPCS: 76642; 77065

== ENCOUNTER → 2019-01-30 10:57 | Outpatient (CLI) | payer OTHER, SELFPAY ==
[2019-01-25 14:02] VITALS: BMI 30.5
--- NOTE | 2019-01-30 10:58 | ECHODONC_ITS ---
Reason For Study: Chemo, EF Check Procedure This was a 2D Doppler, Color Flow transthoracic echocardiogram. Myocardial strain analysis was performed in this exam to aid in the assessment of cardiac function. The exam was of adequate technical quality. Exam performed in department. Left Ventricle Normal LV size. Left ventricular systolic function is normal. The estimated ejection fraction is 65 %. The global longitudinal strain = -22 % (normal). Transmitral doppler flow suggestive of impaired relaxation of left ventricle. No regional wall motion abnormalities noted. Right Ventricle Normal RV size. Normal systolic function. Atria Normal left atrium. Normal right atrium. No doppler evidence for ASD. Mitral Valve There is no mitral annular calcification. Normal mitral valve. Trivial mitral valve insufficiency. Tricuspid Valve Normal tricuspid valve. Trivial tricuspid valve insufficiency. Aortic Valve Trisinus/trileaflet aortic valve. Mild focal aortic valve thickening. Pulmonic Valve The pulmonic valve is not well visualized. Great Vessels The aortic root is not well visualized peer. Pericardium/Pleural No pericardial effusion. MMode/2D Measurements & Calculations LVIDd: 4.6 cm IVSd: 0.88 cm LA dimension: 3.4 cm LVIDs: 2.8 cm LVPWd: 0.96 cm RVDd: 3.4 cm FS: 39.3 % LAV(MOD-bp): 51.6 ml LA A4 area: 18.2 cm2 RA A4 area: 15.8 cm2 LAV(MOD-bp) Indexed: 28.2 ml/m2 LAV(MOD-sp2): 51.4 ml LAV(MOD-sp4): 50.9 ml Time Measurements MV dec time: 0.20 sec Doppler Measurements & Calculations MV E max anibal: 93.3 cm/sec Lat Peak E' Anibal: 9.0 cm/sec Med Peak E' Anibal: 8.6 cm/sec MV A max anibal: 106.2 cm/sec E/E' lat: 10.4 E/E' med: 10.9 MV E/A: 0.88 MV V2 max: 114.6 cm/sec MV P1/2t max anibal: 112.7 cm/sec Ao V2 max: 127.1 cm/sec MV max P.3 mmHg MV P1/2t: 72.4 msec Ao max P.5 mmHg MV V2 mean: 70.8 cm/sec MV dec slope: 455.7 cm/sec2 MV mean P.3 mmHg MVA(P1/2t): 3.0 cm2 MV V2 VTI: 30.2 cm LV V1 max: 96.6 cm/sec PA V2 max: 81.9 cm/sec LV V1 max P.7 mmHg Interpretation Summary Left ventricular systolic function is normal. The estimated ejection fraction is 65 %. The global longitudinal strain = -22 % (normal). Trivial mitral valve insufficiency. Trivial tricuspid valve insufficiency. Mild focal aortic valve thickening. Transmitral doppler flow suggestive of impaired relaxation of left ventricle Ordering Physician: [place] Pugh Referring Physician: [place] Pugh Performed By: Jj Baez RCS
== END ==
PROVIDERS: Referring Provider Internal Medicine Hematology & Oncology; Visit Provider Internal Medicine Hematology & Oncology
DX: C50.912 Malignant neoplasm of unspecified site of left female breast (principal); Z79.899 Other long term (current) drug therapy
CPT/HCPCS: 0399T; 93306

== ENCOUNTER → 2019-11-16 09:47 | Outpatient (CLI) | payer OTHER, SELFPAY ==
[2019-08-09 11:05] VITALS: BMI 29.8
--- NOTE | 2019-11-16 09:55 | BI_ITS ---
MAMMOGRAPHY - UNILATERAL SCREENING: RIGHT BREAST REASON FOR EXAM: Female, 54 years old. Routine annual screening examination (unilateral). PERTINENT HISTORY: Personal history of breast cancer. Prior left mastectomy. TECHNIQUE: Digital unilateral breast jordy (3D mammographic acquisition) in the CC and MLO projections. 2-D mediolateral oblique (MLO) and craniocaudad (CC) views of both breasts were obtained. CAD: Full Field Digital Mammography with Computer Added Detection was performed. COMPARISON: Comparison is made with prior examination dated November 14, 2018 and November 02, 2017. FINDINGS: Breast Composition: The breasts are heterogeneously dense, which may obscure small masses. There are no dominant masses or suspicious calcifications. No other significant abnormalities are identified. There has been no significant change since the prior study. BI/SCREEN MAMM (CAD) W/JORDY UNI R IMPRESSION: Stable unilateral screening mammogram. Yearly follow-up mammogram recommended. (A) ASSESSMENT CATEGORY: BIRADS Category 1: Negative. A letter regarding these results will be sent to the patient by the facility within 30 days. Approximately 10% of breast cancers are not detected by mammography. A normal mammogram should not delay biopsy of a clinically suspicious abnormality. [id number] Electronically Signed: Rodrick Patten, at 11:12 EDT , Service support ,
== END ==
PROVIDERS: PCP Internal Medicine; Referring Provider Obstetrics & Gynecology; Visit Provider Obstetrics & Gynecology
DX: Z12.31 Encounter for screening mammogram for malignant neoplasm of breast (principal); Z85.3 Personal history of malignant neoplasm of breast; Z90.12 Acquired absence of left breast and nipple
CPT/HCPCS: 77063; 77067

== ENCOUNTER → 2020-07-30 09:29 | Outpatient (CLI) | payer OTHER, SELFPAY ==
[2020-07-09 13:57] VITALS: BMI 28.7
[2020-07-30 09:04] VITALS: BMI 29.0
--- NOTE | 2020-07-30 11:23 | BD_ITS ---
STUDY: DUAL ENERGY X-RAY ABSORPTIOMETRY / DXA REASON FOR EXAM: Female, 54 years old. Screening TECHNIQUE: Bone Mineral Density (BMD) measurements of lumbar spine and bilateral hips were obtained. COMPARISON: Comparison is made with prior study dated 07/27/2018. FINDINGS: Lumbar Spine (L1-L4): g/cm2 (1.218) / T-score (0.3) / Z-score (1.1) Findings are suggestive of normal bone density with a low fracture risk. Left Femur Total: g/cm2 (0.971) / T-score (-0.3) / Z-score (0.3) Left Femoral Neck: g/cm2 (0.926) / T-score (-0.8) / Z-score (0.2) Right Femur Total: g/cm2 (0.963) / T-score (-0.4) / Z-score (0.3) Right Femoral Neck: g/cm2 (0.906) / T-score (-0.9) / Z-score (0.1) The T-Scores on the most recent prior examination were: Lumbar Spine (L1-L4): There has been improvement of bone density since the previous examination. Left Femur Total: which represents an improvement of 1.9%. Right Femur Total: which represents an improvement of 5.5%. BD/Dexa Bone Density Study IMPRESSION: The patient is considered normal as outlined below according to World Charlie Organization (WHO) criteria with a low fracture risk. There has been improvement of bone density since the previous examination. Reference Information: The T-score is the number of standard deviations above or below the standard which is normal for young adults at their peak bone mineral density. The World Health Organization (WHO) interprets the T-scores as follows: Above -1 Normal bone density Between -1 and -2.5 Osteopenia Equal to / or below -2.5 Osteoporosis As a practical clinical guideline, osteopenia may be graded as follows: Mild -1 through -1.5 Moderate -1.6 through -2.0 Severe -2.1 through -2.4 The Z-score is the number of standard deviations above or below age-matched controls. A Z-score of less than -1.5 would be considered abnormal. References: 1. NIH Osteoporosis and Related Bone Diseases www osteo.org 2. International Society for Clinical Densitometry www iscd.org 3. National Osteoporosis Foundation www nof.org Electronically Signed: Rodrick Patten MD at 15:31 EST , Service support ,
[2020-07-30 12:21] LABS: Anion Gap 5 (5-15); BUN 14 mg/dL (7-18); BUN/Creat Ratio 14.5 RATIO (10-20); Calcium,Total 8.3 mg/dL (8.5-10.1); Chloride 110 mmol/L (98-107); Cholesterol 186 mg/dL (200); Creatinine, Serum 0.97 mg/dL (0.55-1.02); EST Glomerular Filtration Rate 64 mL/min (>60); Est Glom Filt Rate - Afr Amer 77 mL/min (>60); Glucose 102 mg/dL (74-106); High Density Lipoprotein 42 mg/dL; Potassium 4.1 mmol/L (3.5-5.1); Sodium Level 142 mmol/L (136-145); Triglycerides 379 mg/dL; Very Low Density Lipoprotein 76 mg/dL (5-40)
[2020-07-30 12:31] LABS: Hemoglobin A1c 5.2 % (3.8-5.6)
[2020-07-30 13:11] LABS: Microalbumin,Random Urine 16.2 mg/L (NO RANGE EST.); Microalbumin:Creatinine Ratio 14.6 mg/g CRE (<30 mg/g CRE)
== END ==
PROVIDERS: Internal Medicine; Referring Provider Nurse Practitioner Family; Visit Provider Nurse Practitioner Family
DX: I12.9 Hypertensive chronic kidney disease with stage 1 through stage 4 chronic kidney disease, or unspecified chronic kidney disease (principal); N18.30 Chronic kidney disease, stage 3 unspecified; E66.3 Overweight; Z13.820 Encounter for screening for osteoporosis
CPT/HCPCS: 36415; 77080; 80048; 80061; 82043; 82570; 83036

== ENCOUNTER → 2020-11-07 08:39 | Outpatient (CLI) | payer OTHER, SELFPAY ==
[2020-11-07 08:18] VITALS: BMI 28.2
[2020-11-07 12:31] LABS: Anion Gap 2 (5-15); BUN 19 mg/dL (7-18); BUN/Creat Ratio 20.3 RATIO (10-20); Calcium,Total 8.9 mg/dL (8.5-10.1); Chloride 108 mmol/L (98-107); Cholesterol 231 mg/dL (200); Creatinine, Serum 0.94 mg/dL (0.55-1.02); EST Glomerular Filtration Rate 66 mL/min (>60); Est Glom Filt Rate - Afr Amer 80 mL/min (>60); Glucose 91 mg/dL (74-106); High Density Lipoprotein 57 mg/dL; Potassium 5.1 mmol/L (3.5-5.1); Sodium Level 140 mmol/L (136-145); Triglycerides 212 mg/dL; Very Low Density Lipoprotein 42 mg/dL (5-40)
== END ==
PROVIDERS: PCP Internal Medicine; Referring Provider Internal Medicine; Visit Provider Internal Medicine
DX: I10 Essential (primary) hypertension (principal); E78.5 Hyperlipidemia, unspecified
CPT/HCPCS: 36415; 80048; 80061

== ENCOUNTER → 2020-11-27 12:53 | Outpatient (CLI) | payer OTHER, SELFPAY ==
[2020-09-03 11:02] VITALS: BMI 26.0
[2020-11-07 08:18] VITALS: BMI 28.2
--- NOTE | 2020-11-27 12:55 | BI_ITS ---
MAMMOGRAPHY - UNILATERAL SCREENING: RIGHT BREAST REASON FOR EXAM: Female, 55 years old. Routine annual screening examination (unilateral). PERTINENT HISTORY: Personal history of breast cancer. Prior right mastectomy. TECHNIQUE: Digital unilateral breast jordy (3D mammographic acquisition) in the CC and MLO projections. 2-D mediolateral oblique (MLO) and craniocaudad (CC) views of both breasts were obtained. CAD: Full Field Digital Mammography with Computer Added Detection was performed. COMPARISON: Comparison is made with prior study dated 11/16/2019 and 11/14/2018. FINDINGS: Breast Composition: The breasts are heterogeneously dense, which may obscure small masses. There are no dominant masses or suspicious calcifications. No other significant abnormalities are identified. There has been no significant change since the prior study. BI/SCREEN MAMM (CAD) W/JORDY UNI R IMPRESSION: Stable unilateral screening mammogram. Yearly follow-up mammogram recommended. (A) ASSESSMENT CATEGORY: BIRADS Category 1: Negative. A letter regarding these results will be sent to the patient by the facility within 30 days. Approximately 10% of breast cancers are not detected by mammography. A normal mammogram should not delay biopsy of a clinically suspicious abnormality. [id number] Electronically Signed: Rodrick Patten MD at 13:58 EDT , Service support ,
== END ==
PROVIDERS: PCP Internal Medicine; Referring Provider Internal Medicine Hematology & Oncology; Visit Provider Internal Medicine Hematology & Oncology
DX: Z12.31 Encounter for screening mammogram for malignant neoplasm of breast (principal); Z85.3 Personal history of malignant neoplasm of breast; Z90.11 Acquired absence of right breast and nipple
CPT/HCPCS: 77063; 77067

== ENCOUNTER → 2021-01-05 15:03 | Outpatient (CLI) | payer OTHER, SELFPAY ==
[2021-01-05 14:39] VITALS: BMI 26.0
[2021-01-05 15:40] LABS: Follicle Stimulating Hormone 53.7 mIU/mL
== END ==
PROVIDERS: PCP Internal Medicine; Referring Provider Nurse Practitioner Women's Health; Visit Provider Nurse Practitioner Women's Health
DX: N95.1 Menopausal and female climacteric states (principal)
CPT/HCPCS: 36415; 83001

== ENCOUNTER 2021-07-23 11:01 | Outpatient (CLI) | payer OTHER, SELFPAY ==
[2021-07-23 12:13] LABS: Erythrocyte Sedimentation Rate 18 mm/hr (0-30)
[2021-07-23 12:23] LABS: Absolute Neutrophil Count 2.5 X10^3/uL (2.0-7.7); Basophil# 0.01 X10^3/uL; Basophil% 0.2 % (0-1); Eosinophil# 0.17 X10^3/uL; Eosinophils% 3.5 % (0-5); Hematocrit 42.2 % (37-47); Hemoglobin 14.5 g/dL (12.0-15.0); Lymphocyte % 36.9 % (19-41); Mean Corp Hgb Conc 34.4 g/dL (32-36); Mean Corpuscular Hgb 30.7 pg (27.0-32.0); Mean Corpuscular Volume 89.4 fL (81-99); Mean Platelet Vol. 9.7 fl (6.2-12.0); Monocyte# 0.35 X10^3/uL; Monocyte% 7.2 % (0-10); NRBC Flagged by Analyzer 0 % (0-5); Neutrophil # 2.54 X10^3/uL (2.7-7.7); Platelet Count 330 K/mm3 (150-450); RBC Distribution Width CV 14.6 % (11.6-14.6); RBC Distribution Width SD 47.3 fl (35.1-43.9); Red Blood Count 4.72 M/mm3 (4.2-5.4); White Blood Count 4.9 K/mm3 (4.4-11.0)
[2021-07-23 12:24] LABS: Cholesterol 265 mg/dL (200); High Density Lipoprotein 57 mg/dL; Triglycerides 134 mg/dL; Very Low Density Lipoprotein 27 mg/dL (5-40)
[2021-07-23 12:36] LABS: AST(SGOT) 22 U/L (15-37); Alanine Aminotransfer ALT/SGPT 31 U/L (13-56); Albumin, Serum 3.9 g/dL (3.2-5.0); Alkaline Phosphatase 100 U/L (45-117); Anion Gap 5 (5-15); BUN 18 mg/dL (7-18); CRP < 2.90 mg/L (0.0-3.0); Calcium,Total 9.7 mg/dL (8.5-10.1); Chloride 107 mmol/L (98-107); Creatinine, Serum 1.06 mg/dL (0.55-1.02); EST Glomerular Filtration Rate 57 mL/min (>60); Est Glom Filt Rate - Afr Amer 69 mL/min (>60); Globulin 3.8 g/dL (2.2-4.2); Glucose 93 mg/dL (74-106); Potassium 4.3 mmol/L (3.5-5.1); Protein, Total 7.7 g/dL (6.4-8.2); Rheumatoid Factor < 10.0 IU/mL (<15); Sodium Level 137 mmol/L (136-145); Thyroid Stim Hormone (TSH) 1.44 uIU/mL (0.358-3.74)
[2021-07-24 11:37] LABS: ANTINUCLEAR ANTIBODIES DIRECT Negative (Negative)
[2021-07-25 09:48] LABS: CCP IgG Antibodies 8 units (0-19)
== END 2021-07-23 23:59 | disposition home or self-care (01) ==
LOC: BIMLAB 11:01
PROVIDERS: PCP Internal Medicine; Referring Provider Nurse Practitioner Family; Visit Provider Nurse Practitioner Family
DX: M25.50 Pain in unspecified joint (principal); B02.9 Zoster without complications; Z91.89 Other specified personal risk factors, not elsewhere classified; E78.5 Hyperlipidemia, unspecified
CPT/HCPCS: 36415; 80053; 80061; 84443; 85025; 85652; 86038; 86140; 86200; 86225; 86235; 86431

== ENCOUNTER → 2021-11-13 | Outpatient (CLI) | payer OTHER, SELFPAY ==
[2021-11-13 12:34] LABS: AST(SGOT) 33 U/L (15-37); Alanine Aminotransfer ALT/SGPT 40 U/L (13-56); Albumin, Serum 3.7 g/dL (3.2-5.0); Alkaline Phosphatase 88 U/L (45-117); Anion Gap 4 (5-15); BUN 20 mg/dL (7-18); BUN/Creat Ratio 19.2 RATIO (10-20); Calcium,Total 8.7 mg/dL (8.5-10.1); Chloride 110 mmol/L (98-107); Cholesterol 231 mg/dL (200); Creatinine, Serum 1.04 mg/dL (0.55-1.02); EST Glomerular Filtration Rate 58 mL/min (>60); Est Glom Filt Rate - Afr Amer 71 mL/min (>60); Globulin 3.6 g/dL (2.2-4.2); Glucose 96 mg/dL (74-106); High Density Lipoprotein 54 mg/dL; Potassium 4.7 mmol/L (3.5-5.1); Protein, Total 7.3 g/dL (6.4-8.2); Sodium Level 141 mmol/L (136-145); Triglycerides 144 mg/dL; Very Low Density Lipoprotein 29 mg/dL (5-40)
== END | disposition home or self-care (01) ==
LOC: BIMLAB 08:41
PROVIDERS: PCP Internal Medicine; Referring Provider Internal Medicine; Visit Provider Internal Medicine
DX: E78.5 Hyperlipidemia, unspecified (principal)
CPT/HCPCS: 36415; 80053; 80061

== ENCOUNTER → 2021-12-14 | Outpatient (CLI) | payer OTHER, SELFPAY ==
--- NOTE | 2021-12-14 15:10 | BI_ITS ---
MAMMOGRAPHY - UNILATERAL SCREENING: RIGHT BREAST REASON FOR EXAM: Female, 56 years old. Routine annual screening examination (unilateral). PERTINENT HISTORY: Personal history of breast cancer. Prior left mastectomy. TECHNIQUE: Digital unilateral breast jordy (3D mammographic acquisition) in the CC and MLO projections. 2-D mediolateral oblique (MLO) and craniocaudad (CC) views of both breasts were obtained. CAD: Full Field Digital Mammography with Computer Added Detection was performed. COMPARISON: Comparison is made with prior study dated 11/27/2020 and 11/16/2019. FINDINGS: Breast Composition: The breasts are heterogeneously dense, which may obscure small masses. There are no dominant masses or suspicious calcifications. No other significant abnormalities are identified. There has been no significant change since the prior study. BI/SCREEN MAMM (CAD) W/JORDY UNI R IMPRESSION: Stable unilateral screening mammogram. Yearly follow-up mammogram recommended. (A) ASSESSMENT CATEGORY: BIRADS Category 1: Negative. A letter regarding these results will be sent to the patient by the facility within 30 days. Approximately 10% of breast cancers are not detected by mammography. A normal mammogram should not delay biopsy of a clinically suspicious abnormality. [id number] Electronically Signed: Rodrick Patten MD at 8:24 EDT ,
== END | disposition home or self-care (01) ==
LOC: OPBI 15:09
PROVIDERS: PCP Internal Medicine; Visit Provider Nurse Practitioner Women's Health
DX: Z12.31 Encounter for screening mammogram for malignant neoplasm of breast (principal); Z90.12 Acquired absence of left breast and nipple
CPT/HCPCS: 77063; 77067

== ENCOUNTER → 2022-05-13 | Outpatient (CLI) | payer OTHER, SELFPAY | END | disposition home or self-care (01) | LOC: LABSPEC 10:58 | PROVIDERS: PCP Internal Medicine; Referring Provider Physician Assistant; Visit Provider Physician Assistant | DX: R68.89 Other general symptoms and signs (principal); Z20.822 Contact with and (suspected) exposure to COVID-19 | CPT/HCPCS: 87635; U0003; U0005 ==

== ENCOUNTER → 2022-12-06 | Outpatient (CLI) | payer OTHER, SELFPAY ==
[2022-12-06 12:36] LABS: Absolute Lymphocyte Count 1.45 X10^3/uL (0.83-4.51); Absolute Neutrophil Count 3.2 X10^3/uL (2.0-7.7); Basophil# 0.02 X10^3/uL; Basophil% 0.4 % (0-1); Eosinophil# 0.22 X10^3/uL; Eosinophils% 4.2 % (0-5); Hematocrit 43.5 % (37-47); Hemoglobin 13.9 g/dL (12.0-15.0); Lymphocyte # 1.45 X10^3/ul (0.83-4.51); Lymphocyte % 27.4 % (19-41); Mean Corpuscular Hgb 28.8 pg (27.0-32.0); Mean Corpuscular Volume 90.2 fL (81-99); Mean Platelet Vol. 9.9 fl (6.2-12.0); Monocyte% 7.6 % (0-10); NRBC Flagged by Analyzer 0 % (0-5); Neutrophil # 3.18 X10^3/uL (2.7-7.7); Platelet Count 323 K/mm3 (150-450); RBC Distribution Width SD 42.5 fl (35.1-43.9); Red Blood Count 4.82 M/mm3 (4.2-5.4); White Blood Count 5.3 K/mm3 (4.4-11.0)
[2022-12-06 13:15] LABS: AST(SGOT) 18 U/L (15-37); Alanine Aminotransfer ALT/SGPT 26 U/L (13-56); Albumin, Serum 3.8 g/dL (3.2-5.0); Alkaline Phosphatase 103 U/L (45-117); Anion Gap 3 (5-15); BUN 20 mg/dL (7-18); BUN/Creat Ratio 20.8 RATIO (10-20); Calcium,Total 9.3 mg/dL (8.5-10.1); Chloride 109 mmol/L (98-107); Cholesterol 156 mg/dL (200); Creatinine, Serum 0.96 mg/dL (0.55-1.02); EST Glomerular Filtration Rate 64 mL/min (>60); Est Glom Filt Rate - Afr Amer 77 mL/min (>60); Globulin 3.7 g/dL (2.2-4.2); Glucose 95 mg/dL (74-106); High Density Lipoprotein 57 mg/dL; Potassium 4.4 mmol/L (3.5-5.1); Protein, Total 7.5 g/dL (6.4-8.2); Sodium Level 138 mmol/L (136-145); Triglycerides 119 mg/dL; Very Low Density Lipoprotein 24 mg/dL (5-40)
[2022-12-06 18:06] LABS: Xtra Tube EP Lab EXTRA TUBE
== END | disposition home or self-care (01) ==
LOC: BIMLAB 10:04
PROVIDERS: PCP Internal Medicine; Referring Provider Internal Medicine; Visit Provider Internal Medicine
DX: I10 Essential (primary) hypertension (principal); E78.5 Hyperlipidemia, unspecified
CPT/HCPCS: 36415; 80053; 80061; 85025

== ENCOUNTER 2022-12-15 09:57 | Outpatient (CLI) | payer OTHER, SELFPAY ==
--- NOTE | 2022-12-15 09:59 | BI_ITS ---
MAMMOGRAPHY - UNILATERAL SCREENING: RIGHT BREAST REASON FOR EXAM: Female, 57 years old. Routine annual screening examination (unilateral). PERTINENT HISTORY: Personal history of breast cancer with previous left mastectomy TECHNIQUE: Digital examination. Mediolateral oblique (MLO) and craniocaudad (CC) views of the breast were obtained, along with 3-D tomosynthesis. CAD: CAD was performed on this study. COMPARISON: 11/27/2020 FINDINGS: Breast Composition: There are scattered areas of fibroglandular density. There are no dominant masses or suspicious calcifications. No other significant abnormalities are identified. BI/SCREEN MAMM (CAD) W/JORDY UNI R IMPRESSION: Stable bilateral screening mammogram. ASSESSMENT CATEGORY: BIRADS Category 2: Benign. A letter regarding these results will be sent to the patient by the facility within 30 days. FOLLOW UP RECOMMENDATION: Yearly follow up mammogram recommended. (A) [id number] Approximately 10% of breast cancers are not detected by mammography. A normal mammogram should not delay biopsy of a clinically suspicious abnormality. [id number] Electronically Signed: Adrian Cervantes MD at 12:57 EDT ,
--- NOTE | 2022-12-15 10:06 | BD_ITS ---
STUDY: DUAL ENERGY X-RAY ABSORPTIOMETRY / DXA REASON FOR EXAM: Female, 57 years old. SCREENING TECHNIQUE: Bone Mineral Density (BMD) measurements of lumbar spine and bilateral hips were obtained. COMPARISON: Comparison is made with prior study July 30, 2020. FINDINGS: Lumbar Spine (L1-L4): g/cm2 (1.075) / T-score (0.3) / Z-score (1.5) Findings are suggestive of normal bone density with a low fracture risk. Left Femur Total: g/cm2 (0.931) / T-score (-0.1) / Z-score (0.7) Left Femoral Neck: g/cm2 (0.820) / T-score (-0.3) / Z-score (0.9) Right Femur Total: g/cm2 (0.940) / T-score (0.0) / Z-score (0.8) Right Femoral Neck: g/cm2 (0.791) / T-score (-0.5) / Z-score (0.6) The T-Scores on the most recent prior examination were: Lumbar Spine (L1-L4): There has been worsening of bone density since the previous examination. Left Femur Total: which represents an improvement of 2.8%. Right Femur Total: which represents an improvement of 4.7%. BD/Dexa Bone Density Study IMPRESSION: The patient is considered normal as outlined below according to World Charlie Organization (WHO) criteria with a low fracture risk. There has been improvement of bone density since the previous examination. Reference Information: The T-score is the number of standard deviations above or below the standard which is normal for young adults at their peak bone mineral density. The World Health Organization (WHO) interprets the T-scores as follows: Above -1 Normal bone density Between -1 and -2.5 Osteopenia Equal to / or below -2.5 Osteoporosis As a practical clinical guideline, osteopenia may be graded as follows: Mild -1 through -1.5 Moderate -1.6 through -2.0 Severe -2.1 through -2.4 The Z-score is the number of standard deviations above or below age-matched controls. A Z-score of less than -1.5 would be considered abnormal. References: 1. NIH Osteoporosis and Related Bone Diseases www osteo.org 2. International Society for Clinical Densitometry www iscd.org 3. National Osteoporosis Foundation www nof.org Electronically Signed: Rodrick Patten MD at 10:04 EDT ,
== END 2022-12-15 23:59 | disposition home or self-care (01) ==
LOC: OPBD 09:58
PROVIDERS: PCP Internal Medicine; Referring Provider Internal Medicine Hematology & Oncology; Visit Provider Internal Medicine Hematology & Oncology
DX: Z12.31 Encounter for screening mammogram for malignant neoplasm of breast (principal); Z80.3 Family history of malignant neoplasm of breast; Z90.12 Acquired absence of left breast and nipple; Z13.820 Encounter for screening for osteoporosis
CPT/HCPCS: 77063; 77067; 77080

== ENCOUNTER 2023-02-10 09:24 | Emergency (ER) | payer OTHER, SELFPAY ==
[2023-02-10 09:25] VITALS: BP 190/111; PULSE 110; RESP 18; TEMP 36.6; O2SAT 99
--- NOTE | 2023-02-10 09:37 | ED.VIS.FALL ---
HPI HPI - Fall History of Present Illness Chief Complaint: Trauma Narrative Narrative: Events after a mechanical fall. She was try to walk her dog and she fell into a door frame injuring the bridge of her nose. No loss of consciousness no neck pain she is denying any other injuries. Her nose swallowed up and had some nasal bleeding initially which stopped on its own. [facility] Medical History (Updated 02/10/23 @ 09:[address] 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 Hot flashes Hyperlipidemia Hypertension Influenza Normal colonoscopy Osteopenia Pain of left heel Pain, joint, multiple sites Potential for delayed tissue healing Seasonal allergies Shingles Tachycardia Home Medications PROBIOTIC 1 tab PO DAILY 07/14/18 [History Last Taken Unknown] calcium carbonate 500 mg-vitamin D3 10 mcg (400 unit) tablet 1 tab PO BID 07/14/18 [History Last Taken Unknown] denosumab 60 mg/mL subcutaneous syringe (Prolia) 60 mg subcut [id number] 01/05/21 [History Last Taken Unknown] amlodipine 10 mg tablet 10 mg PO DAILY #90 tabs 05/13/22 [Rx Last Taken Unknown] venlafaxine 75 mg capsule,extended release 24 hr 75 mg PO DAILY 90 days #90 caps 06/28/22 [Rx Last Taken Unknown] anastrozole 1 mg tablet See Rx Instructions .Route .COMPLEX #90 tabs 12/24/22 [Rx Last Taken Unknown] atorvastatin 20 mg tablet 20 mg PO DAILY #60 tabs 01/04/23 [Rx Last Taken Unknown] clindamycin HCl 150 mg capsule 150 mg PO TID 5 days #15 caps 02/10/23 [Rx Last Taken Unknown] Allergy/AdvReac Type Severity Reaction Status Date / Time No Known Allergies Allergy Verified 02/10/23 09:28 Family History Mother Diabetes Daughter Diabetes Surgical History (Updated 02/09/23 @ 14:26 by Ifeoma Becerra NP, DATA ANALYST ETL DEVELOPER-C) Hx of mastectomy S/P foot surgery S/P tubal ligation Social History household members: spouse number of children: 3 current occupational status: employed current occupation: [employer] history of recent travel: No sexually active: Yes Smoking Status: Never smoker alcohol intake: never substance use type: does not use well-balanced diet: daily or most days what type of physical activity do you participate in: walking and weight training frequency: daily seatbelt use: always do you feel safe at home: Yes additional social history: - Lul ARGUELLO ROS ED ROS Narrative Social: Noncontributory Medications: Reviewed the patient is not anticoagulated Past medical history: Reviewed Review of systems General: Patient has no head injury or loss of consciousness HEENT: As in HPI Neck: No neck pain Cardiovascular: Patient denies any chest pain or palpitations Chest wall: No chest wall contusions Respiratory: There is no shortness of breath GI: There is no nausea vomiting diarrhea or abdominal pain, no abdominal wall contusions Skin: No lacerations or abrasions Neurological: Patient has no memory loss, confusion, or any focal weakness Psychiatric: No recent behavioral changes Back: No back pain, no problems with ambulation Skill skeletal: No extremity injury EXAM Physical Exam Narrative Exam Narrative: Physical exam Vitals reviewed General: Does not appear in significant distress, no obvious injuries HEENT: Swelling of the nose, however there is no deformity to either side. There is no nasal septal hematoma although the nasal airway seems to be somewhat swollen. No postnasal drip. Full range of motion of the eyes without pain no tenderness in the orbital region. Head: No head injury Eyes: Extraocular movements intact Neck: No C-spine tenderness with full range of motion Heart: Regular rate normal pulses Chest wall: No chest wall pain Lungs clear lungs bilaterally with normal inspiration and expiration without tachypnea GI: Abdomen is soft and nontender there is no mass no guarding no abdominal wall contusion : Stable pelvis Musculoskeletal: Moves all extremities without any signs of trauma Skin: No abrasions or laceration Neurological: Patient is alert and oriented with no focal deficits Const Vital Signs: 02/10/23 09:25 Temperature 97.9 F Temperature Source Temporal Pulse Rate 110 H Respiratory Rate 18 Blood Pressure 190/111 H Blood Pressure Mean 137 Pulse Ox 99 Oxygen Delivery Method Room Air MDM MDM MDM Narrative Medical decision making narrative: At this time patient could have a nasal fracture however the treatment would not change. I talked to the patient about an x-ray or CT and we will defer at this time. Patient had no other head injury or loss of consciousness and does not meet criteria for head CT. I will discharge her, she can take [id number] NSAIDs I offered opiate analgesics but her pain is not bad enough. Because of the swelling and bleeding in the nose I will write her a short course of clindamycin. Discharge Plan Triage Chief Complaint: Trauma ED Provider: Octavio Sierra Dx/Rx/DC Orders Clinical Impression: Contusion of nose, Fall Instructions: ED CONTUSION Face [w/ Wake Up] Prescriptions: New clindamycin HCl 150 mg capsule 150 mg PO TID 5 Days Qty: 15 0RF No Action calcium carbonate-vitamin D3 500 mg(1,250mg) -400 unit tablet 1 tab PO BID PROBIOTIC 1 tab PO DAILY Prolia 60 mg/mL syringe 60 mg subcut [id number] venlafaxine 75 mg capsule,extended release 24hr 75 mg PO DAILY 90 Days Qty: 90 4RF amlodipine 10 mg tablet 10 mg PO DAILY Qty: 90 3RF anastrozole 1 mg tablet See Rx Instructions .ROUTE .COMPLEX Qty: 90 3RF Dose Instruction: TAKE 1 TABLET DAILY Rx Instructions: TAKE 1 TABLET DAILY atorvastatin 20 mg tablet 20 mg PO DAILY Qty: 60 2RF Primary Care Provider: Tricia Frausto Referrals: Tricia Frausto MD [Primary Care Provider] - 3-5 Days Disposition Disposition: Home, Self Care
[2023-02-10 10:50] VITALS: BP 134/66; PULSE 72; RESP 15; O2SAT 98
[2023-02-10 10:52] VITALS: O2SAT 98
== END 2023-02-10 10:55 | disposition home or self-care (01) ==
LOC: ED 10:00
PROVIDERS: Emergency Provider Emergency Medicine; PCP Internal Medicine; Visit Provider Emergency Medicine
DX: S00.33XA Contusion of nose, initial encounter (principal); R04.0 Epistaxis; Y93.K1 Activity, walking an animal; W01.198A Fall on same level from slipping, tripping and stumbling with subsequent striking against other object, initial encounter; I10 Essential (primary) hypertension; E78.5 Hyperlipidemia, unspecified; Z79.899 Other long term (current) drug therapy
CPT/HCPCS: 99282

== ENCOUNTER → 2023-06-13 | Outpatient (CLI) | payer OTHER, SELFPAY ==
--- NOTE | 2023-06-13 08:04 | EKG12_ITS ---
Test Reason : PRE-OP Blood Pressure : / mmHG Vent. Rate : 089 BPM Atrial Rate : 089 BPM P-R Int : 124 ms QRS Dur : 082 ms QT Int : 376 ms P-R-T Axes : 016 015 036 degrees QTc Int : 457 ms Normal sinus rhythm Normal ECG Confirmed by SHEEBA BAUTISTA, HELLEN ([id number]), newspaper copy editor JOSE CALHOUN ([id number]) on 06/14/2023 5:57:25 AM Referred By: Uli Coreas Confirmed By:HELLEN ALY MD
[2023-06-13 08:38] LABS: Hemoglobin 13.7 g/dL (12.0-15.0); Mean Corp Hgb Conc 32.6 g/dL (32-36); Mean Corpuscular Hgb 28.9 pg (27.0-32.0); Mean Corpuscular Volume 88.6 fL (81-99); Mean Platelet Vol. 9.5 fl (6.2-12.0); Platelet Count 283 K/mm3 (150-450); RBC Distribution Width CV 12.7 % (11.6-14.6); RBC Distribution Width SD 41.5 fl (35.1-43.9); Red Blood Count 4.74 M/mm3 (4.2-5.4); White Blood Count 4.6 K/mm3 (4.4-11.0)
[2023-06-13 12:04] LABS: Anion Gap 4 (5-15); BUN 17 mg/dL (7-18); BUN/Creat Ratio 16.7 RATIO (10-20); Calcium,Total 9.1 mg/dL (8.5-10.1); Chloride 108 mmol/L (98-107); Creatinine, Serum 1.02 mg/dL (0.55-1.02); EST Glomerular Filtration Rate 59 mL/min (>60); Est Glom Filt Rate - Afr Amer 72 mL/min (>60); Glucose 92 mg/dL (74-106); Potassium 4.1 mmol/L (3.5-5.1); Sodium Level 140 mmol/L (136-145)
== END | disposition home or self-care (01) ==
PROVIDERS: PCP Internal Medicine; Referring Provider Otolaryngology; Visit Provider Otolaryngology
DX: Z01.818 Encounter for other preprocedural examination (principal)
CPT/HCPCS: 36415; 80048; 85027; 93005

== ENCOUNTER → 2023-11-16 | Outpatient (CLI) | payer OTHER, SELFPAY ==
[2023-11-16 12:26] LABS: Absolute Lymphocyte Count 1.87 X10^3/uL (0.83-4.51); Absolute Neutrophil Count 3.7 X10^3/uL (2.0-7.7); Basophil# 0.03 X10^3/uL; Basophil% 0.5 % (0-1); Eosinophils% 4.8 % (0-5); Hematocrit 43.3 % (37-47); Hemoglobin 13.8 g/dL (12.0-15.0); Lymphocyte # 1.87 X10^3/ul (0.83-4.51); Lymphocyte % 29.8 % (19-41); Mean Corp Hgb Conc 31.9 g/dL (32-36); Mean Corpuscular Hgb 28.3 pg (27.0-32.0); Mean Corpuscular Volume 88.9 fL (81-99); Mean Platelet Vol. 9.9 fl (6.2-12.0); Monocyte# 0.38 X10^3/uL; Monocyte% 6.1 % (0-10); NRBC Flagged by Analyzer 0 % (0-5); Neutrophil # 3.68 X10^3/uL (2.7-7.7); Neutrophil % 58.5 % (47-70); Platelet Count 313 K/mm3 (150-450); RBC Distribution Width CV 12.9 % (11.6-14.6); RBC Distribution Width SD 41.9 fl (35.1-43.9); Red Blood Count 4.87 M/mm3 (4.2-5.4); White Blood Count 6.3 K/mm3 (4.4-11.0)
[2023-11-16 12:52] LABS: AST(SGOT) 19 U/L (15-37); Alanine Aminotransfer ALT/SGPT 29 U/L (13-56); Albumin, Serum 3.9 g/dL (3.2-5.0); Alkaline Phosphatase 101 U/L (45-117); Anion Gap 6 (5-15); BUN 20 mg/dL (7-18); BUN/Creat Ratio 19.8 RATIO (10-20); Calcium,Total 9.2 mg/dL (8.5-10.1); Chloride 107 mmol/L (98-107); Cholesterol 163 mg/dL (200); Creatinine, Serum 1.01 mg/dL (0.55-1.02); EST Glomerular Filtration Rate 60 mL/min (>60); Est Glom Filt Rate - Afr Amer 72 mL/min (>60); Globulin 3.8 g/dL (2.2-4.2); Glucose 96 mg/dL (74-106); High Density Lipoprotein 54 mg/dL; Potassium 4.4 mmol/L (3.5-5.1); Protein, Total 7.7 g/dL (6.4-8.2); Sodium Level 138 mmol/L (136-145); Triglycerides 128 mg/dL; Very Low Density Lipoprotein 26 mg/dL (5-40)
[2023-11-16 12:59] LABS: Vitamin D,25 Hydroxy 45.5 ng/mL
== END | disposition home or self-care (01) ==
LOC: BIMLAB 09:58
PROVIDERS: PCP Internal Medicine; Visit Provider Internal Medicine
DX: E78.5 Hyperlipidemia, unspecified (principal); Z13.21 Encounter for screening for nutritional disorder; I10 Essential (primary) hypertension
CPT/HCPCS: 36415; 80053; 80061; 82306; 85025

== ENCOUNTER → 2023-12-19 | Outpatient (CLI) | payer OTHER, SELFPAY ==
--- NOTE | 2023-12-19 09:32 | BI_ITS ---
MAMMOGRAPHY - UNILATERAL SCREENING: RIGHT BREAST REASON FOR EXAM: Female, 58 years old. Routine annual screening examination (unilateral). PERTINENT HISTORY: Personal history of breast cancer. Prior left mastectomy. TECHNIQUE: Digital unilateral breast jordy (3D mammographic acquisition) in the CC and MLO projections. 2-D mediolateral oblique (MLO) and craniocaudad (CC) views of both breasts were obtained. CAD: Full Field Digital Mammography with Computer Added Detection was performed. COMPARISON: Comparison is made with prior study dated December 15, 2022 and December 14, 2021. FINDINGS: Breast Composition: The breasts are heterogeneously dense, which may obscure small masses. There are no dominant masses or suspicious calcifications. No other significant abnormalities are identified. There has been no significant change since the prior study. BI/SCREEN MAMM (CAD) W/JORDY UNI R IMPRESSION: Stable unilateral screening mammogram. Yearly follow-up mammogram recommended. (A) ASSESSMENT CATEGORY: BIRADS Category 1: Negative. A letter regarding these results will be sent to the patient by the facility within 30 days. Approximately 10% of breast cancers are not detected by mammography. A normal mammogram should not delay biopsy of a clinically suspicious abnormality. [id number] Electronically Signed: Rodrick Patten MD at 10:31 EDT ,
== END | disposition home or self-care (01) ==
LOC: OPBI 09:32
PROVIDERS: PCP Internal Medicine; Referring Provider Internal Medicine Medical Oncology; Visit Provider Internal Medicine Medical Oncology
DX: Z12.31 Encounter for screening mammogram for malignant neoplasm of breast (principal); Z85.3 Personal history of malignant neoplasm of breast; Z90.12 Acquired absence of left breast and nipple
CPT/HCPCS: 77063; 77067

== ENCOUNTER → 2024-02-22 | Outpatient (CLI) | payer OTHER, SELFPAY ==
[2024-02-28 12:09] LABS: HPV APTIMA, High Risk Negative (Negative)
== END | disposition home or self-care (01) ==
LOC: LABSPEC 15:48
PROVIDERS: PCP Internal Medicine; Referring Provider Nurse Practitioner Women's Health; Visit Provider Nurse Practitioner Women's Health
DX: Z12.4 Encounter for screening for malignant neoplasm of cervix (principal)
CPT/HCPCS: 87624; 88175; G0145

== ENCOUNTER → 2024-11-16 | Outpatient (CLI) | payer OTHER, SELFPAY ==
--- OUTSIDE RECORDS SUMMARY | 2024-11-16 08:50 | XMS RPT_ITS | CCD ---
Author Organization [facility] Care Team Providers Care Educational Resource Coordinator Name Role Phone Dr. Tricia Frausto Primary Care Provider [phone] Dr. Tricia Frausto Referring Provider [phone] Britta ESL TEACHER, ESL TEACHER-C Jagdish Attending Provider [phone] Dr. Tricia Frausto Attending Provider [phone] Dr. Tricia Frausto Primary Care Provider [phone] Dr. Tricia Frausto Referring Provider [phone] Mariam ESL TEACHER, ESL TEACHER-Skip Dia Attending Provider [phone] Dr. Tricia Frausto Attending Provider [phone] Dr. Kam Singh Attending Provider PHILOMENA Boyer Attending Provider PHILOMENA Liang Attending Provider Unavail Dr. Tricia Ascencio Primary Care Provider [phone] Dr. Tricia Frausto Attending Provider [phone] Dr. Tricia Frausto Referring Provider [phone] Dr. [place] Pugh Attending Provider Mariam ESL TEACHER, ESL TEACHER-C Ifeoma Attending Provider [phone] Dr. Tricia Frausto Primary Care Provider [phone] Dr. Tricia Frausto Attending Provider [phone] Oleghe, Dr. Efewongbe Referring Provider [phone] Dameon Vo Referring Unavailable [place] Pugh Attending Unavailable Anderson Seay Consulting Unavailable Care Physician, No Primary Primary Care Unava ilable Oleghe, Efewongbe Referring Unavailable Oleghe, Efewongbe Primary Care Unavailable Oleghe, Efewongbe Attending Unavailable Oleghe, Efewongbe Attending Unavailable Oleghe, Efewongbe Referring Unavailable Oleghe, Efewongbe Primary Care Unavailable [place] Pugh Attending Unavailable Oleghe, Efewongbe Referring Unavailable Oleghe, Efewongbe Primary Care Unavailable Oleghe, Efewongbe Primary Care Unavailable Norman Coreas Attending Unavailabl e Norman Coreas Referring Unavailabl e Oleghe, Efewongbe Referring Unavailable Oleghe, Efewongbe Primary Care Unavailable Mariam ESL TEACHER, Ifeoma Attending Unavailable Oleghe, Efewongbe Primary Care Unavailable Mariam ESL TEACHER, Ifeoma Attending Unavailable Mariam ESL TEACHER, Ifeoma Referring Unavailable Oleghe, Efewongbe Primary Care Unavailable Oleghe, Efewongbe Attending Unavailable Moiz Schneider Attending Unavailable Moiz Schneider Referring Unavailable Oleghe, Efewongbe Primary Care Unavailable Medications Current Medications Medication Drug Class(es) Dates Sig (Normalized) Sig (Original) atorvastatin 20 mg oral tablet (15 sources) HMG-CoA Reductase Inhibitor Start: 07-23-2021 End: 06-07-2023 take 20 mg by mouth once daily Atorvastatin Active 20 MG PO DAILY June 07, 2023 12:25pm calcium carbonate 1250 mg / cholecalciferol 0.01 mg oral tablet (5 sources) Vitamin D Start: 07-14-2018 take 1 tablet by mouth twice daily Calcium Carbonate-Vitamin D3 Active 1 TABLET PO TWICE A DAY July 14, 2018 12:00am 1 ml denosumab 60 mg/ml prefilled syringe (5 sources) RANK Ligand Inhibitor Start: 01-05-2021 Denosumab (Prolia) 60 mg/mL syringe Active 60 MG SC every 6 months January 04, 2021 11:00pm PROBIOTIC (5 sources) Start: 07-14-2018 take 1 tablet by mouth once daily PROBIOTIC Active 1 TABLET PO DAILY July 14, 2018 12:00am Start: 07-14-2018 take 1 tablet by rahul once daily PROBIOTIC Active 1 TABLET PO DAILY July 14, 2018 1:00am 24 hr venlafaxine 75 mg extended release oral capsule (20 sources) Serotonin and Norepinephrine Reuptake Inhibitor Start: 06-28-2022 End: 06-28-2022 take 75 mg by mouth once daily Venlafaxine Active 75 MG PO DAILY June 28, 2022 3:31pm Start: 07-09-2020 End: 08-10-2021 take 75 mg by mouth once daily Venlafaxine Discontinue d 75 MG PO DAILY June 23, 2021 12:52pm August 10, 2021 7:37am Completed/Discontinued Medications Medication Drug Class(es) Dates Sig (Normalized) Sig (Original) acetaminophen 325 mg / HYDROcodone bitartrate 5 mg oral tablet (5 sources) Opioid Agonist Start: 05-31-2018 End: 06-03-2018 take 1 tablet by mouth every six hours as needed Hydrocodone-Aceta minophen Discontinued 1 TABLET PO EVERY 6 HOURS NEEDED 8 May 31, 2018 12:00am June 03, 2018 12:07am amLODIPine 10 mg oral tablet (20 sources) Dihydropyridine Calcium Channel Ebenezer Start: 04-30-2019 End: 05-13-2022 take 10 mg by mouth once daily Amlodipine Discontinued 10 MG PO DAILY March 24, 2021 7:51am May 13, 2022 3:51pm Start: 03-30-2019 End: 04-30-2019 take 5 mg by mouth once daily Amlodipine Discontinued 5 MG PO DAILY March 29, 2019 11:00pm April 30, 2019 9:01am amoxicillin 875 mg / clavulanate 125 mg oral tablet (5 sources) Penicillin-class Antibacterial Start: 08-15-2017 End: 08-25-2017 take 1 tablet by mouth every twelve hours Amoxicillin-Pot Clavulanate (Augmentin) 875-125 mg tablet Discontinued 1 TABLET PO Q12H 20 August 14, 2017 11:00pm August 24, 2017 11:05pm anastrozole 1 mg oral tablet (11 sources) Aromatase Inhibitor Start: 01-26-2021 End: 12-24-2022 Anastrozole Discontinued 0 .ROUTE .COMPLEX January 08, 2022 8:31am December 24, 2022 9:22am TAKE 1 TABLET DAILY azithromycin 250 mg oral tablet (4 sources) Macrolide Antimicrobial Start: 05-14-2022 End: 07-26-2022 take 2-5 tablets by mouth once daily Azithromycin (Zithromax Z-Antoine) 250 mg tablet Discontinued 0 PO .COMPLEX May 14, 2022 12:00am July 26, 2022 3:04pm take 500 mg today (day 1), then 250 mg for 4 days (days 2-5) PO benzonatate 200 mg oral capsule (8 sources) Non-narcotic Antitussive Start: 04-29-2022 End: 02-09-2023 take 200 mg by mouth three times daily Benzonatate Discontinued 200 MG PO THREE TIMES A DAY May 13, 2022 10:30am February 09, 2023 1:03pm cetirizine hydrochloride 10 mg oral capsule (5 sources) Histamine-1 Receptor Antagonist Start: 08-15-2017 End: 11-18-2017 take 1 capsule by mouth once daily Cetirizine (Zyrtec) 10 mg capsule Discontinued 10 MG PO daily August 14, 2017 11:00pm November 18, 2017 1:34pm clindamycin 150 mg oral capsule (4 sources) Lincosamide Antibacterial Start: 02-10-2023 End: 05-13-2023 take 150 mg by mouth three times daily Clindamycin Hcl Discontinued 150 MG PO THREE TIMES A DAY 11 10February 09, 2023 11:00pm May 13, 2023 8:16am guaiFENesin 400 mg oral tablet (4 sources) Start: 05-13-2022 End: 07-26-2022 take 400 mg by mouth three times daily Guaifenesin Discontinued 400 MG PO THREE TIMES A DAY May 13, 2022 12:00am July 26, 2022 3:05pm loratadine 10 mg oral tablet (5 sources) Start: 11-18-2017 End: 12-14-2017 take 1 tablet by mouth once daily Loratadine (Claritin) 10 mg tablet Discontinued 10 MG PO daily November 17, 2017 11:00pm December 14, 2017 2:51pm meloxicam 15 mg oral tablet (4 sources) Nonsteroidal Anti-inflammatory Drug Start: 03-19-2022 End: 02-09-2023 take 15 mg by mouth once daily Meloxicam Discontinued 15 MG PO DAILY March 18, 2022 11:00pm February 09, 2023 1:03pm ondansetron 4 mg oral tablet (15 sources) Serotonin-3 Receptor Antagonist Start: 04-04-2018 End: 04-12-2018 take 2 tablets by mouth every eight hours as needed Ondansetron Hcl (Zofran) 4 MG tablet Discontinued 8 MG PO EVERY 8 HOURS NEEDED 60 April 04, 2018 12:18pm April 12, 2018 12:28pm Start: 12-21-2017 End: 04-04-2018 take 4 mg by mouth every eight hours as needed Ondansetron Hcl Discontinued 4 MG PO EVERY 8 HOURS NEEDED 30 February 01, 2018 8:38am April 04, 2018 12:18pm predniSONE 10 mg oral tablet (4 sources) Start: 04-29-2022 End: 07-26-2022 take 10 mg by mouth twice daily Prednisone Discontinued 10 MG PO TWICE A DAY April 29, 2022 12:00am July 26, 2022 3:05pm propranolol hydrochloride 20 mg oral tablet (20 sources) beta-Adrenergic Ebenezer Start: 09-15-2018 End: 04-30-2019 take 20 mg by mouth twice daily Propranolol Discontinued 20 MG PO TWICE A DAY March 30, 2019 7:25am April 30, 2019 8:52am Start: 08-11-2018 End: 09-15-2018 take 10 mg by mouth twice daily Propranolol Discontinued 10 MG PO TWICE A DAY 60 August 10, 2018 11:00pm September 15, 2018 7:47am tamoxifen 20 mg oral tablet (20 sources) Estrogen Agonist/Antagonist Start: 11-27-2019 End: 01-26-2021 take 20 mg by mouth once daily Tamoxifen Discontinued 20 MG PO DAILY 30 October 15, 2020 6:57am January 26, 2021 10:34am Start: 06-22-2018 End: 10-13-2019 take 20 mg by mouth once daily Tamoxifen Discontinued 20 MG PO DAILY 90 May 10, 2019 9:09am October 12, 2019 11:02pm valACYclovir 1000 mg oral tablet (5 sources) Herpesvirus Nucleoside Analog DNA Polymerase Inhibitor, Herpes Simplex Virus Nucleoside Analog DNA Polymerase Inhibitor, Herpes Zoster Virus Nucleoside Analog DNA Polymerase Inhibitor Start: 05-13-2021 End: 08-10-2021 Valacyclovir (Valtrex) 1 gram tablet Discontinued 1000 MG PO THREE TIMES A DAY May 13, 2021 12:00am August 10, 2021 7:37am Problems Active Problems Problem Classification Problem Date Documented Da te Episodic/Chronic Anxiety disorders (6 sources) Mixed anxiety and depressive disorder; Translations: [Anxiety disorder, unspecified] 07-26-2022 Chronic Cancer of breast (14 sources) Malignant neoplasm of upper-inner quadrant of female breast; Translations: [Malignant neoplasm of upper-inner quadrant of left female breast] Onset: 02-22-2024 Chronic Cardiac dysrhythmias (6 sources) Tachycardia; Translations: [Tachycardia, unspecified] Episodic Disorders of lipid metabolism (12 sources) Hyperlipidemia; Translations: [Hyperlipidemia, unspecified] Onset: 11-23-2023 Chronic E Codes: Fall (2 sources) Fall; Translations: [Unspecified fall, initial encounter] 02-10-2023 Episodic Essential hypertension (12 sources) Hypertensive disorder; Translations: [Essential (primary) hypertension] Onset: 05-18-2024 Chronic Immunizations and screening for infectious disease (3 sources) Needs influenza immunization; Translations: [Encounter for immunization] Episodic Influenza (7 sources) Influenza due to Influenza A virus; Translations: [Influenza due to other identified influenza virus with other respiratory manifestations] Episodic Nonmalignant breast conditions (10 sources) Ptotic breast; Translations: [Ptosis of breast] 11-20-2019 Episodic Other bone disease and musculoskeletal deformities (5 sources) Osteopenia; Translations: [Other specified disorders of bone density and structure, unspecified site] 01-26-2021 Episodic Other connective tissue disease (4 sources) Heel pain; Translations: [Pain in left foot] 03-19-2022 Episodic Other connective tissue disease (1 source) Pain in left foot; Translations: [Pain in limb] Episodic Other diseases of kidney and ureters (5 sources) Abnormal renal function; Translations: [Disorder of kidney and ureter, unspecified] 11-07-2020 Episodic Other gastrointestinal disorders (5 sources) Diarrhea; Translations: [Diarrhea, unspecified] 11-02-2018 Episodic Other gastrointestinal disorders (1 source) Diarrhea, unspecified; Translations: [Diarrhea] 12-27-2022 Episodic Other lower respiratory disease (1 source) Cough; Translations: [Cough] Episodic Other nervous system disorders (3 sources) Carpal tunnel syndrome; Translations: [Carpal tunnel syndrome, unspecified upper limb] 12-06-2022 Chronic Other nervous system disorders (2 sources) Carpal tunnel syndrome, unspecified upper limb; Translations: [Carpal tunnel syndrome] 12-06-2022 Chronic Other non-traumatic joint disorders (3 sources) Ankle pain; Translations: [Pain in left ankle and joints of left foot] 01-09-2021 Episodic Other non-traumatic joint disorders (5 sources) Multiple joint pain; Translations: [Pain in unspecified joint] 07-23-2021 Episodic Other non-traumatic joint disorders (1 source) Pain in unspecified joint; Translations: [Pain in joint, multiple sites] Episodic Other screening for suspected conditions (not mental disorders or infectious disease) (3 sources) Encounter for screening for malignant neoplasm of cervix; Translations: [Encounter for screening mammogram for malignant neoplasm of breast] Onset: 11-16-2023 Episodic Other skin disorders (1 source) Eruption; Translations: [Rash and other nonspecific skin eruption] Episodic Other upper respiratory disease (5 sources) Seasonal allergic rhinitis; Translations: [Other seasonal allergic rhinitis] 03-30-2019 Chronic Other upper respiratory disease (1 source) Deviated nasal septum; Translations: [Deviated nasal septum] 05-13-2023 Episodic Other upper respiratory disease (1 source) Deviated nasal septum; Translations: [Deviated nasal septum] 05-13-2023 Episodic Residual codes; unclassified (5 sources) Finding of wound healing; Translations: [Other specified personal risk factors, not elsewhere classified] 07-23-2021 Episodic Residual codes; unclassified (5 sources) Flushing; Translations: [Flushing] 01-26-2021 Episodic Residual codes; unclassified (5 sources) Estrogen receptor positive tumor; Translations: [Estrogen receptor positive status [ER+]] 11-20-2019 Episodic Residual codes; unclassified (1 source) Other specified personal risk factors, not elsewhere classified; Translations: [Other specified personal history presenting hazards to health] Episodic Residual codes; unclassified (2 sources) Flushing; Translations: [Flushing] Onset: 05-18-2024 12-27-2022 Episodic Residual codes; unclassified (1 source) Estrogen receptor positive status [ER+]; Translations: [Estrogen receptor positive status [ER+]] 02-09-2023 Episodic Residual codes; unclassified (1 source) Acquired absence of unspecified breast and nipple; Translations: [Acquired absence of breast and nipple] 02-09-2023 Episodic Residual codes; unclassified (1 source) Acquired absence of left breast and nipple; Translations: [Acquired absence of left breast and nipple] Onset: 02-22-2024 Episodic Superficial injury; contusion (2 sources) Contusion of nose; Translations: [Contusion of nose, initial encounter] 02-10-2023 Episodic Viral infection (7 sources) Herpes zoster; Translations: [Zoster without complications] Episodic Past or Other Problems Problem Classification Problem Date Documented Da te Episodic/Chronic Cancer of breast (1 source) Personal history of malignant neoplasm of breast; Translations: [Personal history of malignant neoplasm of breast] Onset: 12-27-2023 Episodic Other bone disease and musculoskeletal deformities (4 sources) Other specified disorders of bone density and structure, unspecified site; Translations: [Disorder of bone and cartilage, unspecified] Onset: 12-27-2023 Episodic Results Test Name Value Interpretation Reference Range Facility Internal Medicine Office Vis marialuisa 05-18-2024 Internal Medicine Office Visit [facility] [address] [place] [address] [place] [address] OFFICE VISIT Date of Service: 05/18/24 MR#: [id number] Acct: [id number] Name: SHELBY WORKMAN Rep #: [id number] : 1965 Provider: Dr. 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 Accompanied by: Self Is patient in pain?: No Allergies No Known Allergies Allergy (Verified 05/18/24 08:13) Medications ???Medication ???Instructions ???Recorded ???Confirmed ???Type PROBIOTIC 1 tab PO DAILY 07/14/18 05/18/24 History calcium 500 mg (as 1 tab PO BID 07/14/18 05/18/24 History carbonate)-vitamin D3 10 mcg (400 unit) tablet atorvastatin 20 mg tablet 20 mg PO DAILY #90 TABLETS 12/09/23 05/18/24 Rx amlodipine 10 mg tablet 10 mg PO DAILY #90 tabs 02/28/24 05/18/24 Rx venlafaxine 150 mg 150 mg PO DAILY 90 days #90 caps 05/18/24 05/18/24 Rx capsule,extended release 24 hr [facility] Medical History (Updated 05/18/24 @ 10:[address] 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 history of recent travel: No sexually active: Yes Smoking Status: Never smoker alcohol intake: never substance use type: does not use well-balanced diet: daily or most days what type of physical activity do you participate in: walking and weight training frequency: daily seatbelt use: always do you feel safe at home: Yes additional social history: - Lul BURTON HPI Chief Complaint: 6m f/u Details: SHELBY WORKMAN, is a 58 F who presents to the office today for follow-up of her chronic medical conditions. Also has some concerns. History of hot flashes. She states that lately it has been more. Currently not on any breast cancer therapy. Currently on venlafaxine 75 mg daily for anxiety and depression. History of hypertension, blood pressure today at 120/82 mmHg. Taking her medication as prescribed. No chest pain, palpitation or shortness of breath. Other chronic medical conditions are stable. ROS Const Constitutional: No body ache, chills, excessive sweating, fatigue, fever(s), frequent falls, headache(s), snoring, weakness or change in appetite Eyes Eyes: No blurry vision, change in vision, bulging eyes, floaters, visual disturbances, eye pain or Light sensitivity ENT ENT: No abnormal hearing, ear or mastoid pain, tinnitus, balance problems, nosebleed/epistaxis, nasal congestion, headache(s), neck pain or sore throat Resp Respiratory: No cough, excessive phlegm production, pain on inspiration, shortness of breath, snoring or wheezing Cardio Cardiology: No chest pain at rest, chest pain with exertion, excessive sweating, dyspnea on exertion, lightheadedness, orthopnea or palpitations Gastro GI: No abdominal pain, change in bowel habits, constipation, cramping, diarrhea, nausea/dyspepsia or vomiting Genitourinary-Female: No burning urination, painful urination, urinary incontinence, urinary frequency, suprapubic fullness or side pain Musc Musculoskeletal: No abnormal gait, joint pain, back pain, limited range of motion, muscle weakness, neck pain or numbness Skin Skin: No dry skin, redness, excessive hair growth, yellowing of the eye, lesions, itchy eyes, rash or wounds Neuro Neurology: No abnormal gait, abnormal hearing, behavioral changes, unsteady gait/balance, weakness, frequent falls, headache(s), memory loss, numbness or visual disturbances Psych Psychiatric: No anxiety, No behavioral changes, No change in appetite, No depression, No memory loss and No Though (more content not included)... Normal [facility] PAP IG HPV APTIMA 16/18,45on 02-28-2024 ADEQ Comment Normal . [facility] Comment on above: Order Comment: Speci men Comment: [id number] Comment: Source.............CervixSpecimen Comment: Other..............Post MenopausalSpecimen Comment: No. of containers..01 ThinPrep Vial Result Comment: Sati sfactory for evaluation. Endocervical component may not be distinguished in cases of atrophy. Performed By: #### L 7400.0280 ####[facility] [address] [place], [address] COMM . Normal . [facility] Comment on above: Order Comment: Speci men Comment: [id number] Comment: Source.............CervixSpecimen Comment: Other..............Post MenopausalSpecimen Comment: No. of containers..01 ThinPrep Vial Performed By: #### L 7400.0280 ####[facility] [address] [place], [address] COMMENT Comment Normal . [facility] Comment on above: Order Comment: Speci men Comment: [id number] Comment: Source.............CervixSpecimen Comment: Other..............Post MenopausalSpecimen Comment: No. of containers..01 ThinPrep Vial Result Comment: This liquid based ThinPrep(R) pap test was screened with the use of an image guided system. Performed By: #### L 7400.0280 ####[facility] [address] [place], [place], [id number] DIAG Comment Normal . [facility] Comment on above: Order Comment: Speci men Comment: [id number] Comment: Source.............CervixSpecimen Comment: Other..............Post MenopausalSpecimen Comment: No. of containers..01 ThinPrep Vial Result Comment: NEGA TIVE FOR INTRAEPITHELIAL LESION OR MALIGNANCY. CELLULAR CHANGES ASSOCIATED WITH ATROPHY ARE PRESENT. Performed By: #### L 7400.0280 ####[facility] [address] [place], [address] HPV APTIMA, HR Negative Normal Negative [facility] Comment on above: Order Comment: Speci men Comment: [id number] Comment: Source.............CervixSpecimen Comment: Other..............Post MenopausalSpecimen Comment: No. of containers..01 ThinPrep Vial Result Comment: This nucleic acid amplification test detects fourteen high- risk HPV types (16,18,31,33,35,39,45,51,52,56,58,59,66,68) without differentiation. Performed By: #### L 7400.0280 ####[facility] [address] [place], [address] HPV Jemma Rfx Comment Normal . [facility] Comment on above: Order Comment: Speci men Comment: [id number] Comment: Source.............CervixSpecimen Comment: Other..............Post MenopausalSpecimen Comment: No. of containers..01 ThinPrep Vial Result Comment: Crit eria not met, HPV Genotype not performed. Performed at: [facility] [address] [place] [id number] It Risk Analyst: Harlan Chin MD, Phone: [phone] Performed at: - [address] [id number] It Risk Analyst: Ruthann Reyes MD, Phone: [phone] Performed at: = - [facility] [id number] It Risk Analyst: Ruthann Reyes MD, Phone: [phone] Performed By: #### L 7400.0280 ####[facility] [address] [place], [address] PAPSMR Comment Normal . [facility] Comment on above: Order Comment: Speci men Comment: [id number] Comment: Source.............CervixSpecimen Comment: Other..............Post MenopausalSpecimen Comment: No. of containers..01 ThinPrep Vial Result Comment: The Pap smear is a screening test designed to aid in the detection of premalignant and malignant conditions of the uterine cervix. It is not a diagnostic procedure and should not be used as the sole means of detecting cervical cancer. Both false-positive and false-negative reports do occur. Performed By: #### L 7400.0280 ####[facility] [address] [place], [address] PERFORM Comment Normal . [facility] Comment on above: Order Comment: Speci men Comment: [id number] Comment: Source.............CervixSpecimen Comment: Other..............Post MenopausalSpecimen Comment: No. of containers..01 ThinPrep Vial Result Comment: Veda Mcclure Railway Track Worker (ASCP) Performed By: #### L 7400.0280 ####[facility] [address] [place], [place], [id number] Cephalometric Technician Office Visit Reporton 02-22-2024 Cephalometric Technician Office Visit Report [facility] [address], [address] [place] [address] OFFICE VISIT Date of Service: 02/22/24 MR#: [id number] Acct: [id number] Name: SHELBY WORKMAN Rep #: [id number] : 1965 Provider: DOMINGUEZ julio Age/Sex: 58/F [place] [facility] [place] Status: Signed Intake Vital Signs 12/27/23 15:34 02/22/24 13:04 02/22/24 13:09 Height 5 ft 4 in 5 ft 4 in 5 ft 4 in Weight: 179 lb 4 oz 174 lb 6 oz BMI 30.7 29.9 BP 139/89 H 134/84 H Blood Pressure Location Rt brachial Position Sitting Respiration 16 Pulse 79 Pulse Source Monitor Temp 97.8 F Temperature Source Temporal Artery Pulse Oximetry (%) 98 Oxygen Delivery Method room air 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 Is patient in pain?: No Allergies No Known Allergies Allergy (Verified 02/22/24 13:04) Medications ???Medication ???Instructions ???Recorded ???Confirmed ???Type PROBIOTIC 1 tab PO DAILY 07/14/18 02/22/24 History calcium carbonate 500 mg-vitamin 1 tab PO BID 07/14/18 02/22/24 History D3 10 mcg (400 unit) tablet denosumab 60 mg/mL subcutaneous 60 mg subcut [id number] 01/05/21 02/22/24 History syringe (Prolia) venlafaxine 75 mg capsule,extended 75 mg PO DAILY 90 days #90 caps 07/05/23 02/22/24 Rx release 24 hr amlodipine 10 mg tablet 10 mg PO DAILY #90 tabs 07/11/23 02/22/24 Rx atorvastatin 20 mg tablet 20 mg PO DAILY #90 TABLETS 12/09/23 02/22/24 Rx Is last menstrual period known: No Post menopausal: Yes Patient : No : No PFSH Medical History Deviated nasal septum Carpal tunnel syndrome Anxiety and depression Influenza Pain of left heel Pain, joint, multiple sites Potential for delayed tissue healing Tachycardia Shingles Hot flashes Abnormal kidney function Hyperlipidemia HER2-positive carcinoma of left breast Osteopenia Normal colonoscopy Hypertension Estrogen receptor positive status [ER+] Breast ptosis Disproportion of reconstructed breast Seasonal allergies Surgical History S/P tubal ligation S/P foot surgery Hx of mastectomy Family History Mother Diabetes Daughter Diabetes Social History household members: spouse number of children: 3 current occupational status: employed current occupation: [employer] history of recent travel: No sexually active: Yes Smoking Status: Never smoker alcohol intake: never substance use type: does not use well-balanced diet: daily or most days what type of physical activity do you participate in: walking and weight training frequency: daily seatbelt use: always do you feel safe at home: Yes additional social history: - Lul History 3 Elective abortions Hx Para 3 Spontaneous abortions Hx # Term Pregnancies Ectopic pregnancies Hx # Pregnancies Multiple births # of living children 3 Past Pregnancies Del. Date Name GA/Weeks Outcome Route Bth Weight Infant Gen Labor Lgth Anesthesia Del Locatn Provider FOB Unknown Lety 1986 Unknown Radha 1990 Unknown Renetta 1992 HPI Encounter for routine gynecological examination Details: SHELBY WORKMAN is a 58 year old who presents for annual exam. Denies concerns Last PAP: 2018 History of abnormal PAP: no Last mammogram: 11/2023 History of abnormal mammogram: R mastectomy Colon cancer screenin Other preventative health care screenings: Lisbet Female Reproductive History Questions: metorrhagia: No, sexually active: Yes, dyspareunia: No and PCB: No ROS Const Constitutional: Denies fatigue, weight gain or weight loss Cardio Card: Denies chest pain Resp Resp: Denies cough or dyspnea on exertion GI GI: Denies abdominal pain, bloating, change in stool character, constipation or vomiting : Reports as per HPI; Denies difficulty voiding, pelvic pain, urinary frequency, urinary incontinence, urinary urgency, vaginal discharge or vaginal pruritus Exam Const General: cooperative, healthy appearing, no acute distress and well developed Orientation: alert, oriented to person and oriented to place HENMT Head: normal to inspection Neck Neck: normal visual inspection Thyroid: thyroid normal Lymphatic: no lymphadenopathy noted Chest Breast inspection: normal inspection of the breasts (left mastectomy) and normal inspection of the axillae Breast palpation: normal palpation of the breasts, normal palpation of the axillae and no axillary lymphadenopathy Resp Effort Inspection: normal respirat (more content not included)... Normal [facility] CBC W/Diff, Automatedon 07-3 0-2023 Absolute Lymph 2.13 X10 3/uL Normal 0.83-4.[address] [facility] Comment on above: Performed By: #### L 100.0100, L500.4050 #### [facility] [address] [place], [place], [address] Absolute Neut 3.9 X10 3/uL Normal 2.0-7.[address] [facility] Comment on above: Performed By: #### L 100.0100, L500.4050 #### [facility] [address] [place], [address] Basophils/100 WBC (Bld) 0.6 % Normal 0-[address] [facility] Comment on above: Performed By: #### L 100.0100, L500.4050 #### [facility] [address] [place], [address] Eosinophils/100 WBC (Bld) 4.1 % Normal 0-[address] [facility] Comment on above: Performed By: #### L 100.0100, L500.4050 #### [facility] [address] [place], [address] Erythrocyte distribution width (RBC) [Ratio] 12.9 % Normal 11.6-14.[address] [facility] Comment on above: Performed By: #### L 100.0100, L500.4050 #### [facility] [address] [place], [address] Hematocrit (Bld) [Volume fraction] 41.5 % Normal 37-[address] [facility] Comment on above: Performed By: #### L 100.0100, L500.4050 #### [facility] [address] [place], [address] Hemoglobin (Bld) [Mass/Vol] 13.7 g/dL Normal 12.0-15.[address] [facility] Comment on above: Performed By: #### L 100.0100, L500.4050 #### [facility] [address] [place], [address] IG% 0.400 Normal 0.0-0.[address] [facility] Comment on above: Result Comment: IG% - Immature Granulocytes (promyelocytes, myelocytes and metamyelocytes) > 1% indicates that a LEFT SHIFT is Present. Performed By: #### L 100.0100, L500.4050 #### [facility] [address] [place], [address] Lymphocytes/100 WBC (Bld) 31.1 % Normal 19-[address] [facility] Comment on above: Performed By: #### L 100.0100, L500.4050 #### [facility] [address] [place], [address] MCH (RBC) [Entitic mass] 28.5 pg Normal 27.0-32.[address] [facility] Comment on above: Performed By: #### L 100.0100, L500.4050 #### [facility] [address] [place], [address] MCHC (RBC) [Mass/Vol] 33.0 g/dL Normal 32-36 [facility] Comment on above: Performed By: #### L 100.0100, L500.4050 #### [facility] [address] [place], [address] MCV (RBC) [Entitic vol] 86.3 fL Normal 81-[address] [facility] Comment on above: Performed By: #### L 100.0100, L500.4050 #### [facility] [address] [place], [address] Monocytes/100 WBC (Bld) 7.2 % Normal 0-[address] [facility] Comment on above: Performed By: #### L 100.0100, L500.4050 #### [facility] [address] [place], [address] Neutrophils/100 WBC (Bld) 56.6 % Normal 47-[address] [facility] Comment on above: Performed By: #### L 100.0100, L500.4050 #### [facility] [address] [place], [address] Nucleated RBC (Bld) [#/Vol] 0 10*3/uL Normal 0-[address] [facility] Comment on above: Performed By: #### L 100.0100, L500.4050 #### [facility] [address] [place], [address] Platelet mean volume (Bld) [Entitic vol] 9.4 fL Normal 6.2-12.[address] [facility] Comment on above: Performed By: #### L 100.0100, L500.4050 #### [facility] [address] [place], [address] Platelets (Bld) [#/Vol] 292 10*3/uL Normal 150-[address] [facility] Comment on above: Performed By: #### L 100.0100, L500.4050 #### [facility] [address] [place], [address] RBC (Bld) [#/Vol] 4.81 10*6/uL Normal 4.2-5.4 [facility] Comment on above: Performed By: #### L 100.0100, L500.4050 #### [facility] [address] [place], [address] RDW SD 40.3 fl Normal 35.1-43.[address] [facility] Comment on above: Performed By: #### L 100.0100, L500.4050 #### [facility] [address] [place], [address] WBC (Bld) [#/Vol] 6.9 10*3/uL Normal 4.4-11.0 [facility] Comment on above: Performed By: #### L 100.0100, L500.4050 #### [facility] [address] [place], [address] Comprehensive Metabolic Prof [facility] 12-27-2023 Albumin [Mass/Vol] 4.0 g/dL Normal 3.2-5.0 [facility] Comment on above: Performed By: #### L 100.0100, L500.4050 #### [facility] [address] [place], [address] Albumin/Globulin [Mass ratio] 1.1 {ratio} Normal 0.9-2.[address] [facility] Comment on above: Performed By: #### L 100.0100, L500.4050 #### [facility] [address] [place], [address] ALK P 98 U/L Normal 45-[address] [facility] Comment on above: Performed By: #### L 100.0100, L500.4050 #### [facility] [address] [place], [address] ALT [Catalytic activity/Vol] 26 U/L Normal 13-[address] [facility] Comment on above: Performed By: #### L 100.0100, L500.4050 #### [facility] [address] [place], [address] AST [Catalytic activity/Vol] 20 U/L Normal 15-[address] [facility] Comment on above: Performed By: #### L 100.0100, L500.4050 #### [facility] [address] [place], [address] Bilirubin [Mass/Vol] 0.30 mg/dL Normal 0.20-1.00 [facility] Comment on above: Result Comment: For patients on eltrombopag therapy, use of Dimension [place] TBIL is not recommended. Performed By: #### L 100.0100, L500.4050 #### [facility] [address] [place], [address] BUN/CRE 19.8 RATIO Normal 10-[address] [facility] Comment on above: Performed By: #### L 100.0100, L500.4050 #### [facility] [address] [place], [address] CA,Total 9.4 mg/dL Normal 8.5-10.[address] [facility] Comment on above: Performed By: #### L 100.0100, L500.4050 #### [facility] [address] [place], [address] Chloride [Moles/Vol] 103 mmol/L Normal 98-107 [facility] Comment on above: Performed By: #### L 100.0100, L500.4050 #### [facility] [address] [place], [address] CO2 [Moles/Vol] 27.0 mmol/L Normal 21.0-32.[address] [facility] Comment on above: Performed By: #### L 100.0100, L500.4050 #### [facility] [address] [place], [address] Creatinine [Mass/Vol] 0.96 mg/dL Normal 0.55-1.02 [facility] Comment on above: Result Comment: The validity of the calculated GFR GFRAA in patients over 70 years has not been determined. Clinical correlation is essential. Performed By: #### L 100.0100, L500.4050 #### [facility] [address] [place], [address] ECRCL 64.20 ml/min Normal [facility] Comment on above: Performed By: #### L 100.0100, L500.4050 #### [facility] [address] [place], [address] EST GFR - AA 77 mL/min Normal >[address] [facility] Comment on above: Result Comment: Afri can French GFR Calc Performed By: #### L 100.0100, L500.4050 #### [facility] [address] [place], [address] GAP 6 Normal 5-[address] [facility] Comment on above: Performed By: #### L 100.0100, L500.4050 #### [facility] [address] [place], [address] GFR/1.73 sq M.predicted among non-blacks MDRD (S/P/Bld) [Vol rate/Area] 63 mL/min/{1.73_m2} Normal >[address] [facility] Comment on above: Result Comment: Non- GFR Calc Performed By: #### L 100.0100, L500.4050 #### [facility] [address] [place], [address] Globulin (S) [Mass/Vol] 3.7 g/dL Normal 2.2-4.[address] [facility] Comment on above: Performed By: #### L 100.0100, L500.4050 #### [facility] [address] [place], [address] Glucose [Mass/Vol] 91 mg/dL Normal 74-106 [facility] Comment on above: Performed By: #### L 100.0100, L500.4050 #### [facility] [address] [place], [address] Potassium [Moles/Vol] 4.2 mmol/L Normal 3.5-5.1 [facility] Comment on above: Performed By: #### L 100.0100, L500.4050 #### [facility] [address] [place], [address] Sodium [Moles/Vol] 136 mmol/L Normal 136-145 [facility] Comment on above: Performed By: #### L 100.0100, L500.4050 #### [facility] [address] [place], [address] T PROT 7.7 g/dL Normal 6.4-8.[address] [facility] Comment on above: Performed By: #### L 100.0100, L500.4050 #### [facility] [address] [place], [address] Urea nitrogen [Mass/Vol] 19 mg/dL High 7-[address] [facility] Comment on above: Performed By: #### L 100.0100, L500.4050 #### [facility] [address] [place], [address] Oncology Visit Reporton 11-29 Oncology Visit Report [facility] [place] [facility] [address] [address] OFFICE VISIT Date of Service: 12/27/23 1532 MR#: [id number] Acct: [id number] Name: SHELBY WORKMAN Rep #: [id number] : 1965 From: [place] Pugh MD Age/Sex: 58/F Location[place] [facility] Status: Signed HPI Subjective Date of Service 12/27/23 Chief Complaint Breast cancer treatment History of Present Illness Patient is a 57-year-old premenopausal at diagnosis female who presented with a palpable lump in the left breast. In the past she used to go for annual screening mammograms however she skipped in 2016. Mammogram October 2017: Microcalcifications in the upper slightly medial deep portion of the left breast as described. Ultrasound LEFT Breast November 23, 2017: There is a 1.1 cm x 0.6 cm x 1 cm hypoechoic irregular solid nodule at the 10:00 position of the breast at 3 cm from the nipple. December 15, 2017 breast MRI: In the upper inner quadrant of the left breast there is an area of clumped [id number] enhancement measuring approximately 4.5 cm x 3.3 cm x 4 cm. This enhancement is confined to the upper inner quadrant of the breast. There is a tissue clip artifact superiorly from one biopsy. There is a seroma cavity more inferiorly and medially measuring 1.4 x 1.3 cm with a tissue clip artifact within it. There are no enlarged or abnormal lymph nodes. There is no abnormality in the visualized regions of the chest or liver. December 02, 2017 Left breast, ultrasound-guided core biopsy: Invasive ductal carcinoma: Nuclear grade 3/3 ER (clone [id number]) >95%, moderate ME (clone 16/1E2) 50%, moderate Her-2Neu (clone CB11) 3+ December 06, 2017: Left breast, 10 o???clock microcalcification, stereotactic core biopsy: Ductal carcinoma in situ with the following characteristics: Pattern solid and comedo pattern. Nuclear Grade high nuclear grade. Necrosis present, central (expansive comedo necrosis). Calcifications - present May 31, 2018: Left breast Mastectomy with sentinel lymph node biopsy, patient was found to be in complete pathologic remission and no residual cancer. MICROSCOPIC DIAGNOSIS A. Left axillary sentinel lymph nodes, biopsy: Three out of three lymph nodes negative for carcinoma. B. Left breast, Mastectomy : Focal changes consistent with previous biopsy. Hyalinized fibroadenoma. Fibrocystic change and involutional change. Focal adenosis. Nipple and skin with no pathologic change. No evidence of malignancy. Treatment summary and response: Neoadjuvant TCHP January 09, 2018-04/24/2018 (6 cycles): Had a complete pathologic response Left breast mastectomy with sentinel lymph node May 31, 2018 Herceptin maintenance May 2018-January 2019 concluding 1 year of treatment. Tamoxifen May 2018-December 2020 (2 1/2 Y). Anastrozole January 2021- Supportive: Prolia for bone loss April 2019??? Effexor for hot flashes May 2020- Interval History Recovering from shingles left forehead and left eye [facility] Medical History Encounter for vitamin deficiency screening Health care maintenance Deviated nasal septum Carpal tunnel syndrome Anxiety and depression Influenza Pain of left heel Pain, joint, multiple sites Potential for delayed tissue healing Tachycardia Shingles Hot flashes Abnormal kidney function Hyperlipidemia HER2-positive carcinoma of left breast Osteopenia Normal colonoscopy Hypertension Estrogen receptor positive status [ER+] Breast ptosis Disproportion of reconstructed breast Seasonal allergies Surgical History S/P tubal ligation S/P foot surgery Hx of mastectomy Family History Mother Diabetes Daughter Diabetes Social History household members: spouse number of children: 3 current occupational status: employed current occupation: [employer] history of recent travel: No sexually active: Yes Smoking Status: Never smoker alcohol intake: never substance use type: does not use well-balanced diet: daily or most days what type of physical activity do you participate in: walking and weight training frequency: daily seatbelt use: always do you feel safe at home: Yes additional social history: - Lul ARGUELLO Constitutional Constitutional: Reports systems reviewed and no addt'l complaints, except as documented; Denies fatigue, fever(s), night sweats or weight loss Eyes Eyes: Reports systems reviewed and no addt'l complaints, except as documented; Denies change in vision ENT HEENT: Reports systems reviewed and no addt'l complaints, except as documented, headache(s) and other Details: Occasional (every (more content not included)... Normal [facility] SCREEN MAMM (CAD) W/JORDY UNI Puneet 12-19-2023 SCREEN MAMM (CAD) W/JORDY UNI R [facility] Imaging Services [address] [place], [place] [address] SCREEN MAMM (CAD) W/JORDY UNI R MR#: [id number] Acct: [id number] Name: SHELBY WORKMAN Rep #: [id number] : 1965 F 58 From: Rodrick pedro MD PCP: Dr. Tricia Frausto MD Status: REG [facility] Study: SCREEN MAMM (CAD) W/JORDY UNI R Date of Exam: 0 12/19/23 Exam# [id number] Ordering Dr: Moiz Schneider MD [id number] MAMMOGRAPHY - UNILATERAL SCREENING: RIGHT BREAST REASON FOR EXAM: Female, 58 years old. Routine annual screening examination (unilateral). PERTINENT HISTORY: Personal history of breast cancer. Prior left mastectomy. TECHNIQUE: Digital unilateral breast jordy (3D mammographic acquisition) in the CC and MLO projections. 2-D mediolateral oblique (MLO) and craniocaudad (CC) views of both breasts were obtained. CAD: Full Field Digital Mammography with Computer Added Detection was performed. COMPARISON: Comparison is made with prior study dated December 15, 2022 and December 14, 2021. FINDINGS: Breast Composition: The breasts are heterogeneously dense, which may obscure small masses. There are no dominant masses or suspicious calcifications. No other significant abnormalities are identified. There has been no significant change since the prior study. BI/SCREEN MAMM (CAD) W/JORDY UNI R IMPRESSION: Stable unilateral screening mammogram. Yearly follow-up mammogram recommended. (A) ASSESSMENT CATEGORY: BIRADS Category 1: Negative. A letter regarding these results will be sent to the patient by the facility within 30 days. Approximately 10% of breast cancers are not detected by mammography. A normal mammogram should not delay biopsy of a clinically suspicious abnormality. [id number] Electronically Signed: Rodrick Patten MD at 10:31 EDT Reading Location ID and State: [facility] / [place] , Service support , CC: Dr. Tricia Frausto MD; Dr. Moiz Schneider MD Teasel Setter: Signed Normal [facility] CBC W/Diff, Automatedon 10-28 Absolute Lymph 1.87 X10 3/uL Normal 0.83-4.[address] [facility] Comment on above: Performed By: #### L 100.0100, L500.4100, L506.1000, L500.4050 #### [facility] [address] [place], [address] Absolute Neut 3.7 X10 3/uL Normal 2.0-7.[address] [facility] Comment on above: Performed By: #### L 100.0100, L500.4100, L506.1000, L500.4050 #### [facility] [address] [place], [address] Basophils/100 WBC (Bld) 0.5 % Normal 0-[address] [facility] Comment on above: Performed By: #### L 100.0100, L500.4100, L506.1000, L500.4050 #### [facility] [address] [place], [address] Eosinophils/100 WBC (Bld) 4.8 % Normal 0-[address] [facility] Comment on above: Performed By: #### L 100.0100, L500.4100, L506.1000, L500.4050 #### [facility] [address] [place], [address] Erythrocyte distribution width (RBC) [Ratio] 12.9 % Normal 11.6-14.[address] [facility] Comment on above: Performed By: #### L 100.0100, L500.4100, L506.1000, L500.4050 #### [facility] [address] [place], [address] Hematocrit (Bld) [Volume fraction] 43.3 % Normal 37-[address] [facility] Comment on above: Performed By: #### L 100.0100, L500.4100, L506.1000, L500.4050 #### [facility] [address] [place], [address] Hemoglobin (Bld) [Mass/Vol] 13.8 g/dL Normal 12.0-15.[address] [facility] Comment on above: Performed By: #### L 100.0100, L500.4100, L506.1000, L500.4050 #### [facility] [address] [place], [address] IG% 0.300 Normal 0.0-0.[address] [facility] Comment on above: Result Comment: IG% - Immature Granulocytes (promyelocytes, myelocytes and metamyelocytes) > 1% indicates that a LEFT SHIFT is Present. Performed By: #### L 100.0100, L500.4100, L506.1000, L500.4050 #### [facility] [address] [place], [address] Lymphocytes/100 WBC (Bld) 29.8 % Normal 19-[address] [facility] Comment on above: Performed By: #### L 100.0100, L500.4100, L506.1000, L500.4050 #### [facility] [address] [place], [address] MCH (RBC) [Entitic mass] 28.3 pg Normal 27.0-32.[address] [facility] Comment on above: Performed By: #### L 100.0100, L500.4100, L506.1000, L500.4050 #### [facility] [address] [place], [address] MCHC (RBC) [Mass/Vol] 31.9 g/dL Low 32-36 [facility] Comment on above: Performed By: #### L 100.0100, L500.4100, L506.1000, L500.4050 #### [facility] [address] [place], [address] MCV (RBC) [Entitic vol] 88.9 fL Normal 81-[address] [facility] Comment on above: Performed By: #### L 100.0100, L500.4100, L506.1000, L500.4050 #### [facility] [address] [place], [address] Monocytes/100 WBC (Bld) 6.1 % Normal 0-[address] [facility] Comment on above: Performed By: #### L 100.0100, L500.4100, L506.1000, L500.4050 #### [facility] [address] [place], [address] Neutrophils/100 WBC (Bld) 58.5 % Normal 47-[address] [facility] Comment on above: Performed By: #### L 100.0100, L500.4100, L506.1000, L500.4050 #### [facility] [address] [place], [address] Nucleated RBC (Bld) [#/Vol] 0 10*3/uL Normal 0-[address] [facility] Comment on above: Performed By: #### L 100.0100, L500.4100, L506.1000, L500.4050 #### [facility] [address] [place], [address] Platelet mean volume (Bld) [Entitic vol] 9.9 fL Normal 6.2-12.[address] [facility] Comment on above: Performed By: #### L 100.0100, L500.4100, L506.1000, L500.4050 #### [facility] [address] [place], [address] Platelets (Bld) [#/Vol] 313 10*3/uL Normal 150-[address] [facility] Comment on above: Performed By: #### L 100.0100, L500.4100, L506.1000, L500.4050 #### [facility] [address] [place], [address] RBC (Bld) [#/Vol] 4.87 10*6/uL Normal 4.2-5.4 [facility] Comment on above: Performed By: #### L 100.0100, L500.4100, L506.1000, L500.4050 #### [facility] [address] [place], [address] RDW SD 41.9 fl Normal 35.1-43.[address] [facility] Comment on above: Performed By: #### L 100.0100, L500.4100, L506.1000, L500.4050 #### [facility] [address] [place], [address] WBC (Bld) [#/Vol] 6.3 10*3/uL Normal 4.4-11.0 [facility] Comment on above: Performed By: #### L 100.0100, L500.4100, L506.1000, L500.4050 #### [facility] [address] [place], [address] Comprehensive Metabolic Prof ilon 11-16-2023 Albumin [Mass/Vol] 3.9 g/dL Normal 3.2-5.0 [facility] Comment on above: Performed By: #### L 100.0100, L500.4100, L506.1000, L500.4050 #### [facility] [address] [place], [address] Albumin/Globulin [Mass ratio] 1.0 {ratio} Normal 0.9-2.[address] [facility] Comment on above: Performed By: #### L 100.0100, L500.4100, L506.1000, L500.4050 #### [facility] [address] [place], [address] ALK P 101 U/L Normal 45-[address] [facility] Comment on above: Performed By: #### L 100.0100, L500.4100, L506.1000, L500.4050 #### [facility] [address] [place], [address] ALT [Catalytic activity/Vol] 29 U/L Normal 13-[address] [facility] Comment on above: Performed By: #### L 100.0100, L500.4100, L506.1000, L500.4050 #### [facility] [address] [place], [address] AST [Catalytic activity/Vol] 19 U/L Normal 15-[address] [facility] Comment on above: Performed By: #### L 100.0100, L500.4100, L506.1000, L500.4050 #### [facility] [address] [place], [address] Bilirubin [Mass/Vol] 0.30 mg/dL Normal 0.20-1.00 [facility] Comment on above: Result Comment: For patients on eltrombopag therapy, use of Dimension [place] TBIL is not recommended. Performed By: #### L 100.0100, L500.4100, L506.1000, L500.4050 #### [facility] [address] [place], [address] BUN/CRE 19.8 RATIO Normal 10-[address] [facility] Comment on above: Performed By: #### L 100.0100, L500.4100, L506.1000, L500.4050 #### [facility] [address] [place], [address] CA,Total 9.2 mg/dL Normal 8.5-10.[address] [facility] Comment on above: Performed By: #### L 100.0100, L500.4100, L506.1000, L500.4050 #### [facility] [address] [place], [address] Chloride [Moles/Vol] 107 mmol/L Normal 98-107 [facility] Comment on above: Performed By: #### L 100.0100, L500.4100, L506.1000, L500.4050 #### [facility] [address] [place], [address] CO2 [Moles/Vol] 25.0 mmol/L Normal 21.0-32.[address] [facility] Comment on above: Performed By: #### L 100.0100, L500.4100, L506.1000, L500.4050 #### [facility] [address] [place], [address] Creatinine [Mass/Vol] 1.01 mg/dL Normal 0.55-1.02 [facility] Comment on above: Result Comment: The validity of the calculated GFR GFRAA in patients over 70 years has not been determined. Clinical correlation is essential. Performed By: #### L 100.0100, L500.4100, L506.1000, L500.4050 #### [facility] [address] [place], [address] EST GFR - AA 72 mL/min Normal >[address] [facility] Comment on above: Result Comment: Afri can French GFR Calc Performed By: #### L 100.0100, L500.4100, L506.1000, L500.4050 #### [facility] [address] [place], [address] GAP 6 Normal 5-[address] [facility] Comment on above: Performed By: #### L 100.0100, L500.4100, L506.1000, L500.4050 #### [facility] [address] [place], [address] GFR/1.73 sq M.predicted among non-blacks MDRD (S/P/Bld) [Vol rate/Area] 60 mL/min/{1.73_m2} Normal >[address] [facility] Comment on above: Result Comment: Non- GFR Calc Performed By: #### L 100.0100, L500.4100, L506.1000, L500.4050 #### [facility] [address] [place], [address] Globulin (S) [Mass/Vol] 3.8 g/dL Normal 2.2-4.[address] [facility] Comment on above: Performed By: #### L 100.0100, L500.4100, L506.1000, L500.4050 #### [facility] [address] [place], [address] Glucose [Mass/Vol] 96 mg/dL Normal 74-106 [facility] Comment on above: Performed By: #### L 100.0100, L500.4100, L506.1000, L500.4050 #### [facility] [address] [place], [address] Potassium [Moles/Vol] 4.4 mmol/L Normal 3.5-5.1 [facility] Comment on above: Performed By: #### L 100.0100, L500.4100, L506.1000, L500.4050 #### [facility] [address] [place], [address] Sodium [Moles/Vol] 138 mmol/L Normal 136-145 [facility] Comment on above: Performed By: #### L 100.0100, L500.4100, L506.1000, L500.4050 #### [facility] [address] [place], [address] T PROT 7.7 g/dL Normal 6.4-8.[address] [facility] Comment on above: Performed By: #### L 100.0100, L500.4100, L506.1000, L500.4050 #### [facility] [address] [place], [address] Urea nitrogen [Mass/Vol] 20 mg/dL High 7-[address] [facility] Comment on above: Performed By: #### L 100.0100, L500.4100, L506.1000, L500.4050 #### [facility] [address] [place], [address] Internal Medicine Office Vis itopanfilo 11-16-2023 Internal Medicine Office Visit [facility] [address] [place] [address] [place] [address] OFFICE VISIT Date of Service: 11/16/23 MR#: [id number] Acct: [id number] Name: SHELBY WORKMAN Rep #: [id number] : 1965 Provider: Dr. Tricia lee MD Age/Sex: 58/F Location: [facility] Status: Signed Intake Vital Signs 05/13/23 08:18 07/05/23 15:33 11/16/23 09:29 Height 5 ft 4 in 5 ft 4 in 5 ft 4 in Weight: 174 lb 8 oz BMI 29.9 BP 138/84 H Blood Pressure Location Lt brachial Position Sitting Respiration 16 Pulse 96 Pulse Source Monitor Temp 97.2 F L Temp Source Temporal Pulse Oximetry (%) 98 Oxygen Delivery Method room air Intake Visit Reasons: 6 m fu Chief Complaint: Follow-up chronic conditions. 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 Accompanied by: Self Is patient in pain?: No Allergies No Known Allergies Allergy (Verified 11/16/23 09:27) Medications ???Medication ???Instructions ???Recorded ???Confirmed ???Type PROBIOTIC 1 tab PO DAILY 07/14/18 11/16/23 History calcium carbonate 500 mg-vitamin 1 tab PO BID 07/14/18 11/16/23 History D3 10 mcg (400 unit) tablet denosumab 60 mg/mL subcutaneous 60 mg subcut [id number] 01/05/21 11/16/23 History syringe (Prolia) atorvastatin 20 mg tablet 20 mg PO DAILY #90 tabs 06/07/23 11/16/23 Rx venlafaxine 75 mg capsule,extended 75 mg PO DAILY 90 days #90 caps 07/05/23 11/16/23 Rx release 24 hr amlodipine 10 mg tablet 10 mg PO DAILY #90 tabs 07/11/23 11/16/23 Rx PFSH Medical History (Updated 11/16/23 @ 09:[address] Tricia Frausto MD) Encounter for vitamin deficiency screening Health care maintenance Deviated nasal septum Carpal tunnel syndrome Anxiety and depression Influenza Pain of left heel Pain, joint, multiple sites Potential for delayed tissue healing Tachycardia Shingles Hot flashes Abnormal kidney function Hyperlipidemia HER2-positive carcinoma of left breast Osteopenia Normal colonoscopy Hypertension Estrogen receptor positive status [ER+] Breast ptosis Disproportion of reconstructed breast Seasonal allergies Surgical History S/P tubal ligation S/P foot surgery Hx of mastectomy Family History Mother Diabetes Daughter Diabetes Social History household members: spouse number of children: 3 current occupational status: employed current occupation: [employer] history of recent travel: No sexually active: Yes Smoking Status: Never smoker alcohol intake: never substance use type: does not use well-balanced diet: daily or most days what type of physical activity do you participate in: walking and weight training frequency: daily seatbelt use: always do you feel safe at home: Yes additional social history: - Lul HPI HPI Chief Complaint: Follow-up chronic conditions. Details: SHELBY WORKMAN, is a 58 F who presents to the office today for follow-up of her chronic medical conditions. No acute concerns at this time. History of hypertension, blood pressure today is at 138/84 mmHg however, she states that she forgot to take her amlodipine today. Has not really checked her blood pressure at home lately but reports compliance with her medication. No chest pain, palpitation or shortness of breath. Other chronic medical conditions are stable. Doing well on venlafaxine for anxiety and depression. No concerning side effects. Has an appointment with [facility] shortly. She believes that she is up-to-date with her Pap smear. Has had a mammogram ordered by oncology, history of breast cancer and has recently completed anastrozole. ROS Const Constitutional: No body ache, chills, excessive sweating, fatigue, fever(s), frequent falls, headache(s), snoring, weakness or change in appetite Eyes Eyes: No blurry vision, change in vision, bulging eyes, floaters, visual disturbances, eye pain or Light sensitivity ENT ENT: No abnormal hearing, ear or mastoid pain, tinnitus, balance problems, nosebleed/epistaxis, nasal congestion, headache(s), neck pain or sore throat Resp Respiratory: No cough, chest congestion, pain on inspiration, shortness of breath, snoring or wheezing Cardio Cardiology: No chest pain at rest, chest pain with exertion, excessive sweating, dyspnea on exertion, lightheadedness, orthopnea or palpitations Gastro GI: No abdominal pain, change in bowel habits, constipation, cramping, diarrhea, nausea/dyspepsia or vomiting Genitourinary-Female: No burning urination, painful urination, urinary incontinence, urinary frequency, suprapubic fullness or side pain Musc Musculoskeletal: No abnormal gait, joint pain, back pain, limited range of motion, muscle cramps, (more content not included)... Normal [facility] Lipid Profileon 11-16-2023 Cholesterol [Mass/Vol] 163 mg/dL Normal 200 [facility] Comment on above: Result Comment: <200 mg/dL Desirable 200-240 mg/dL Borderline >240 mg/dL High Risk Performed By: #### L 100.0100, L500.4100, L506.1000, L500.4050 ####[facility] [address] [place], [address] Cholesterol in HDL [Mass/Vol] 54 mg/dL Normal [facility] Comment on above: Result Comment: The drugs N-Acetylcysteine and Metamizole may falsely depress this assay. Reference Range HDL <40 mg/dL Low HDL Cholesterol HDL >or= 60 mg/dL High HDL Cholesterol Performed By: #### L 100.0100, L500.4100, L506.1000, L500.4050 ####[facility] [address] [place], [address] Cholesterol in LDL [Mass/Vol] 83 mg/dL Normal 0-[address] [facility] Comment on above: Performed By: #### L 100.0100, L500.4100, L506.1000, L500.4050 ####[facility] [address] [place], [address] Cholesterol in VLDL [Mass/Vol] 26 mg/dL Normal 5-[address] [facility] Comment on above: Performed By: #### L 100.0100, L500.4100, L506.1000, L500.4050 ####[facility] [address] [place], [address] Triglyceride [Mass/Vol] 128 mg/dL Normal [facility] Comment on above: Result Comment: The drugs N-Acetylcysteine and Metamizole may falsely depress this assay. Serum Triglycerides Reference Interval Normal <150 mg/dL Borderline high 150 - 199 mg/dL High 200 - 499 mg/dL Very High > or = 500 mg/dL Performed By: #### L 100.0100, L500.4100, L506.1000, L500.4050 ####[facility] [address] [place], [address] Vitamin D,25 Hydroxyon 11-15 Vitamin D 25-OH 45.5 ng/mL Normal [facility] Comment on above: Result Comment: Ksenia min D 25(OH) Status Range Deficiency <20 ng/mL (50nmol/L) Insufficiency 20 - 30 ng/mL (50 - 75 nmol/L) Sufficiency 30 - 100 ng/mL (75 - 250 nmol/L) Toxicity >100 ng/mL (>250 nmol/L) Performed By: #### L 100.0100, L500.4100, L506.1000, L500.4050 ####[facility] [address] [place], [address] 12 Lead EKGon 06-13-2023 12 Lead EKG [facility] [address] [place] [address] 12 Lead EKG 06/13/23 0804 MR#: [id number] Acct: [id number] Name: SHELBY WORKMAN Rep #: [id number] : 1965 57 From: Kam Singh MD Attending Dr: Dr. Norman Coreas MD Statu s: REG CLI Ordering Dr: Norman Coreas MD Date: 4 Location: [facility] Sex: F C Admitted: Test Reason : PRE-OP Blood Pressure : / mmHG Vent. Rate : 089 BPM Atrial Rate : 089 BPM P-R Int : 124 ms QRS Dur : 082 ms QT Int : 376 ms P-R-T Axes : 016 015 036 degrees QTc Int : 457 ms Normal sinus rhythm Normal ECG Confirmed by KAM SINGH MD ([id number]), index editor JOSE CALHOUN ([id number]) on 06/14/2023 5:57:25 AM Referred By: Uli Coreas Confirmed By:KAM SINGH MD 06/14/23 0557 Date Kam Singh MD CC: Dr. Norman Coreas MD; Dr. Tricia Frausto MD Signed Normal [facility] Basic Metabolic Profile (BMP )on 06-13-2023 BUN/CRE 16.7 RATIO Normal 10-[address] [facility] Comment on above: Performed By: #### L 100.0500, L500.2500 #### [facility] [address] [place], [address] CA,Total 9.1 mg/dL Normal 8.5-10.[address] [facility] Comment on above: Performed By: #### L 100.0500, L500.2500 #### [facility] [address] [place], [address] Chloride [Moles/Vol] 108 mmol/L High 98-107 [facility] Comment on above: Performed By: #### L 100.0500, L500.2500 #### [facility] [address] [place], [address] CO2 [Moles/Vol] 28.0 mmol/L Normal 21.0-32.[address] [facility] Comment on above: Performed By: #### L 100.0500, L500.2500 #### [facility] [address] [place], [address] Creatinine [Mass/Vol] 1.02 mg/dL Normal 0.55-1.02 [facility] Comment on above: Result Comment: The validity of the calculated GFR GFRAA in patients over 70 years has not been determined. Clinical correlation is essential. Performed By: #### L 100.0500, L500.2500 #### [facility] [address] [place], [address] EST GFR - AA 72 mL/min Normal >[address] [facility] Comment on above: Result Comment: Afri can French GFR Calc Performed By: #### L 100.0500, L500.2500 #### [facility] [address] [place], [address] GAP 4 Low 5-[address] [facility] Comment on above: Performed By: #### L 100.0500, L500.2500 #### [facility] [address] [place], [address] GFR/1.73 sq M.predicted among non-blacks MDRD (S/P/Bld) [Vol rate/Area] 59 mL/min/{1.73_m2} Low >[address] [facility] Comment on above: Result Comment: Non- GFR Calc Performed By: #### L 100.0500, L500.2500 #### [facility] [address] [place], [address] Glucose [Mass/Vol] 92 mg/dL Normal 74-106 [facility] Comment on above: Performed By: #### L 100.0500, L500.2500 #### [facility] [address] [place], [address] Potassium [Moles/Vol] 4.1 mmol/L Normal 3.5-5.1 [facility] Comment on above: Performed By: #### L 100.0500, L500.2500 #### [facility] [address] [place], [address] Sodium [Moles/Vol] 140 mmol/L Normal 136-145 [facility] Comment on above: Performed By: #### L 100.0500, L500.2500 #### [facility] [address] [place], [address] Urea nitrogen [Mass/Vol] 17 mg/dL Normal 7-[address] [facility] Comment on above: Performed By: #### L 100.0500, L500.2500 #### [facility] [address] [place], [address] Basophil percentageOrdered B y: Norman Coreas on 06-13-2023 Chloride [Moles/Vol] 108 mmol/L 98-107 [facility] Glucose [Mass/Vol] 92 mg/dL 74-106 [facility] Potassium [Moles/Vol] 4.1 mmol/L 3.5-5.1 [facility] Sodium [Moles/Vol] 140 mmol/L 136-145 [facility] WBC (Bld) [#/Vol] 4.6 10*3/uL 4.4-11.0 [facility] Blood erythrocytes count (nu mber/volume)Ordered By: Norman Coreas on 06-13-2023 RBC (Bld) [#/Vol] 4.74 10*6/uL 4.2-5.4 [facility] Blood hemoglobin measurement (mass/volume)Ordered By: Norman Coreas on 06-13-2023 Hemoglobin (Bld) [Mass/Vol] 13.7 g/dL 12.0-15.[address] [facility] Blood platelet mean volumeOr dered By: Norman Coreas on 06-13-2023 Platelet mean volume (Bld) [Entitic vol] 9.5 fL 6.2-12.[address] [facility] CBC-Complete Blood Cnt No Di ffon 06-13-2023 Erythrocyte distribution width (RBC) [Ratio] 12.7 % Normal 11.6-14.[address] [facility] Comment on above: Performed By: #### L 100.0500, L500.2500 #### [facility] [address] [place], [address] Hematocrit (Bld) [Volume fraction] 42.0 % Normal 37-[address] [facility] Comment on above: Performed By: #### L 100.0500, L500.2500 #### [facility] [address] [place], [address] Hemoglobin (Bld) [Mass/Vol] 13.7 g/dL Normal 12.0-15.[address] [facility] Comment on above: Performed By: #### L 100.0500, L500.2500 #### [facility] [address] [place], [address] MCH (RBC) [Entitic mass] 28.9 pg Normal 27.0-32.[address] [facility] Comment on above: Performed By: #### L 100.0500, L500.2500 #### [facility] [address] [place], [address] MCHC (RBC) [Mass/Vol] 32.6 g/dL Normal 32-36 [facility] Comment on above: Performed By: #### L 100.0500, L500.2500 #### [facility] [address] [place], [address] MCV (RBC) [Entitic vol] 88.6 fL Normal 81-[address] [facility] Comment on above: Performed By: #### L 100.0500, L500.2500 #### [facility] [address] [place], [address] Platelet mean volume (Bld) [Entitic vol] 9.5 fL Normal 6.2-12.[address] [facility] Comment on above: Performed By: #### L 100.0500, L500.2500 #### [facility] [address] [place], [address] Platelets (Bld) [#/Vol] 283 10*3/uL Normal 150-[address] [facility] Comment on above: Performed By: #### L 100.0500, L500.2500 #### [facility] [address] [place], [address] RBC (Bld) [#/Vol] 4.74 10*6/uL Normal 4.2-5.4 [facility] Comment on above: Performed By: #### L 100.0500, L500.2500 #### [facility] [address] [place], [address] RDW SD 41.5 fl Normal 35.1-43.[address] [facility] Comment on above: Performed By: #### L 100.0500, L500.2500 #### [facility] [address] [place], [address] WBC (Bld) [#/Vol] 4.6 10*3/uL Normal 4.4-11.0 [facility] Comment on above: Performed By: #### L 100.0500, L500.2500 #### [facility] [address] [place], [address] Determination of erythrocyte mean corpuscular volume (MCV)Ordered By: Norman Coreas on 06-13-2023 MCV (RBC) [Entitic vol] 88.6 fL 81-[address] [facility] Hematocrit Auto (Bld) [Volum e fraction]Ordered By: Norman Coreas on 06-13-2023 Hematocrit (Bld) [Volume fraction] 42.0 % 37-[address] [facility] - Chemistry and C hemistry - challengeOrdered By: Norman Coreas on 06-13-2023 CO2 [Moles/Vol] 28.0 mmol/L 21.0-32.[address] [facility] Urea nitrogen/Creatinine [Mass ratio] 16.7 mg/mg 10-[address] [facility] Laboratory - Hematology and Cell countsOrdered By: Norman Coreas on 06-13-2023 Erythrocyte distribution width (RBC) [Entitic vol] 41.5 fL 35.1-43.[address] [facility] Erythrocyte distribution width (RBC) [Ratio] 12.7 % 11.6-14.[address] [facility] MCH (RBC) [Entitic mass] 28.9 pg 27.0-32.[address] [facility] MCHC Auto (RBC) [Mass/Vol]Or dered By: Norman Coreas on 06-13-2023 MCHC (RBC) [Mass/Vol] 32.6 g/dL 32-36 [facility] No Panel InformationOrdered By: Norman Coreas on 06-13-2023 Estimated GFR (MDRD) Amer 72 mL/min >[address] [facility] Comment on above: GFR Calc Estimated GFR (MDRD) Non-Af Amer 59 mL/min >[address] [facility] Comment on above: Non- GFR Calc Platelets bldOrdered By: Dre chen Joss on 06-13-2023 Platelets (Bld) [#/Vol] 283 10*3/uL 150-[address] [facility] Serum or plasma calcium levi urement (mass/volume)Ordered By: Norman Coreas on 06-13-2023 Calcium [Mass/Vol] 9.1 mg/dL 8.5-10.1 [facility] Serum or plasma creatinine m easurement (mass/volume)Ordered By: Norman Coreas on 06-13-2023 Creatinine [Mass/Vol] 1.02 mg/dL 0.55-1.02 [facility] Comment on above: The validity of the calculated GFR & GFRAA in patients over 70 years has not been determined. Clinical correlation is essential. Serum or plasma urea nitroge n measurement (mass/volume)Ordered By: Norman Coreas on 06-13-2023 Urea nitrogen [Mass/Vol] 17 mg/dL 7-[address] [facility] Thin prep Papanicolaou smear with manual screeningOrdered By: Norman Coreas on 06-13-2023 Thin prep Papanicolaou smear with manual screening 4 5-[address] [facility] Absolute lymphocyte countOrd ered By: Tricia Frausto on 12-06-2022 Lymphocytes Auto (Unsp spec) [#/Vol] 1.45 10*3/uL 0.83-4.[address] [facility] Basophil percentageOrdered B y: Tricia Frausto on 12-06-2022 Basophils/100 WBC (Bld) 0.4 % 0-[address] [facility] Bilirubin [Mass/Vol] 0.30 mg/dL 0.20-1.00 [facility] Comment on above: For patients on eltr ombopag therapy, use of Dimension [place] TBIL is not recommended. Chloride [Moles/Vol] 109 mmol/L 98-107 [facility] Cholesterol [Mass/Vol] 156 mg/dL <200 [facility] Comment on above: <200 mg/dL Desirable 200-240 mg/dL Borderline >240 mg/dL High Risk Eosinophils/100 WBC (Bld) 4.2 % 0-[address] [facility] Glucose [Mass/Vol] 95 mg/dL 74-106 [facility] Neutrophils (Bld) [#/Vol] 3.2 10*3/uL 2.0-7.[address] [facility] Neutrophils/100 WBC (Bld) 60.0 % 47-[address] [facility] Potassium [Moles/Vol] 4.4 mmol/L 3.5-5.1 [facility] Protein [Mass/Vol] 7.5 g/dL 6.4-8.2 [facility] Sodium [Moles/Vol] 138 mmol/L 136-145 [facility] Triglyceride [Mass/Vol] 119 mg/dL <[address] [facility] Comment on above: The drugs N-Acetylcy steine and Metamizole may falsely depress this assay.Serum Triglycerides Reference Interval Normal <150 mg/dL Borderline high 150 - 199 mg/dL High 200 - 499 mg/dL Very High > or = 500 mg/dL WBC (Bld) [#/Vol] 5.3 10*3/uL 4.4-11.0 [facility] Blood erythrocytes count (nu mber/volume)Ordered By: Tricia Frausto on 12-06-2022 RBC (Bld) [#/Vol] 4.82 10*6/uL 4.2-5.4 [facility] Blood hemoglobin measurement (mass/volume)Ordered By: Tricia Frausto on 12-06-2022 Hemoglobin (Bld) [Mass/Vol] 13.9 g/dL 12.0-15.[address] [facility] Blood lymphocytes/100 leukoc ytesOrdered By: Tricia Frausto on 12-06-2022 Lymphocytes/100 WBC (Bld) 27.4 % 19-[address] [facility] Blood monocytes/100 leukocyt esOrdered By: Tricia Frausto on 12-06-2022 Monocytes/100 WBC (Bld) 7.6 % 0-[address] [facility] Blood platelet mean volumeOr dered By: Tricia Frausto on 12-06-2022 Platelet mean volume (Bld) [Entitic vol] 9.9 fL 6.2-12.[address] [facility] Determination of erythrocyte mean corpuscular volume (MCV)Ordered By: Tricia Frausto on 12-06-2022 MCV (RBC) [Entitic vol] 90.2 fL 81-[address] [facility] Hematocrit Auto (Bld) [Volum e fraction]Ordered By: [facility] Lisbet on 12-06-2022 Hematocrit (Bld) [Volume fraction] 43.5 % 37-[address] [facility] Laboratory - Chemistry and C hemistry - challengeOrdered By: [facility] on 12-06-2022 ALP [Catalytic activity/Vol] 103 U/L 45-[address] [facility] ALT [Catalytic activity/Vol] 26 U/L 13-[address] [facility] CO2 [Moles/Vol] 26.0 mmol/L 21.0-32.[address] [facility] Globulin (S) [Mass/Vol] 3.7 g/dL 2.2-4.[address] [facility] Urea nitrogen/Creatinine [Mass ratio] 20.8 mg/mg 10-[address] [facility] Laboratory - Hematology and Cell countsOrdered By: baowest libertyfelix Longoriaawa on 12-06-2022 Erythrocyte distribution width (RBC) [Entitic vol] 42.5 fL 35.1-43.[address] [facility] Erythrocyte distribution width (RBC) [Ratio] 13.0 % 11.6-14.[address] [facility] Immature granulocytes/100 WBC (Bld) 0.400 % 0.0-0.[address] [facility] Comment on above: IG% - Immature Granu locytes (promyelocytes, myelocytes and metamyelocytes) > 1% indicates that a LEFT SHIFT is Present. MCH (RBC) [Entitic mass] 28.8 pg 27.0-32.[address] [facility] Nucleated RBC/100 WBC (Bld) [Ratio] 0 % 0-[address] [facility] MCHC Auto (RBC) [Mass/Vol]Or dered By: baowest libertyfelix Frausto on 12-06-2022 MCHC (RBC) [Mass/Vol] 32.0 g/dL 32-36 [facility] No Panel InformationOrdered By: Tricia Frausto on 12-06-2022 Estimated GFR (MDRD) Amer 77 mL/min >[address] [facility] Comment on above: GFR Calc Estimated GFR (MDRD) Non-Af Amer 64 mL/min >[address] [facility] Comment on above: Non- GFR Calc Platelets bldOrdered By: Ovidio Frausto on 12-06-2022 Platelets (Bld) [#/Vol] 323 10*3/uL 150-[address] [facility] Serum or plasma albumin levi urement (mass/volume)Ordered By: Tricia Frausto on 12-06-2022 Albumin [Mass/Vol] 3.8 g/dL 3.2-5.0 [facility] Serum or plasma albumin/glob ulin mass ratioOrdered By: Tricia Frausto on 12-06-2022 Albumin/Globulin [Mass ratio] 1.0 {ratio} 0.9-2.[address] [facility] Serum or plasma calcium levi urement (mass/volume)Ordered By: Tricia Frausto on 12-06-2022 Calcium [Mass/Vol] 9.3 mg/dL 8.5-10.1 [facility] Serum or plasma cholesterol in HDL measurement (mass/volume)Ordered By: Tricia Frausto on 12-06-2022 Cholesterol in HDL [Mass/Vol] 57 mg/dL >[address] [facility] Comment on above: The drugs N-Acetylcy steine and Metamizole may falsely depress this assay. Reference Range HDL <40 mg/dL Low HDL Cholesterol HDL >or= 60 mg/dL High HDL Cholesterol Serum or plasma cholesterol in VLDL measurement (mass/volume)Ordered By: Tricia Frausto on 12-06-2022 Cholesterol in VLDL [Mass/Vol] 24 mg/dL 5-[address] [facility] Serum or plasma creatinine m easurement (mass/volume)Ordered By: Tricia Frausto on 12-06-2022 Creatinine [Mass/Vol] 0.96 mg/dL 0.55-1.02 [facility] Comment on above: The validity of the calculated GFR & GFRAA in patients over 70 years has not been determined. Clinical correlation is essential. Serum or plasma low density lipoprotein (LDL) cholesterol measurement (mass/volume)Ordered By: Tricia Frausto on 12-06-2022 Cholesterol in LDL [Mass/Vol] 75 mg/dL 0-[address] [facility] Serum or plasma urea nitroge n measurement (mass/volume)Or[facility] By: [facility] on 12-06-2022 Urea nitrogen [Mass/Vol] 20 mg/dL 7-[address] [facility] Thin prep Papanicolaou smear with manual screeningOrdered By: [facility] on 12-06-2022 Thin prep Papanicolaou smear with manual screening 18 U/L 15-[address] [facility] Thin prep Papanicolaou smear with manual screening 3 5-[address] [facility] Laboratory - Microbiology an d Antimicrobial susceptibilityon 05-13-2022 SARS-CoV-2 (COVID-19) RNA EDWIN+probe Ql (Unsp spec) Not detected Not Detect [facility] Work Phone: Comment on above: Normal Reference Ran ge: Not DetectedMethod:(RT-PCR) real-time reverse transcriptase PCRLuminex MADDI Instrument*The Food and Drug Administration (FDA) has issued an Emergency Use Authorization (EAU) for the MADDI SARS-CoV-2 Assay for the rapid detection of the virus that causes COVID-19. This test has been validated, but the FDAs independent review of this validation is pending.*Negative results do not preclude infection and should not be used as the sole basis for treatment or patient management. Optimum specimen types and timing for peak viral levels during infections caused by SARS-CoV-2 have not been determined. Collection of multiple specimens from the same patient may be necessary to detect the virus. The possibility of a false negative result should be considered if the patient has clinical presentation or has had recent exposure. No Panel Informationon 05-13 Influenza Types A,B Rapid (Clinic) Negative [facility] Work Phone: Laboratory - Microbiology an d Antimicrobial susceptibilityon 04-29-2022 SARS-CoV-2 (COVID-19) RNA EDWIN+probe Ql (Unsp spec) Not detected [facility] Work Phone: No Panel Informationon 04-29 Influenza Types A,B Rapid (Clinic) Detected [facility] Work Phone: Absolute lymphocyte countOrd ered By: [place] Pugh on 12-28-2021 Lymphocytes Auto (Unsp spec) [#/Vol] 2.22 10*3/uL 0.83-4.[address] [facility] Basophil percentageOrdered B y: [place] Pugh on 12-28-2021 Basophils/100 WBC (Bld) 0.4 % 0-[address] [facility] Bilirubin [Mass/Vol] 0.30 mg/dL 0.20-1.00 [facility] Comment on above: For patients on eltr ombopag therapy, use of Dimension [place] TBIL is not recommended. Chloride [Moles/Vol] 107 mmol/L 98-107 [facility] Eosinophils/100 WBC (Bld) 3.7 % 0-[address] [facility] Glucose [Mass/Vol] 93 mg/dL 74-106 [facility] Neutrophils (Bld) [#/Vol] 2.3 10*3/uL 2.0-7.[address] [facility] Neutrophils/100 WBC (Bld) 45.7 % 47-[address] [facility] Potassium [Moles/Vol] 4.0 mmol/L 3.5-5.1 [facility] Protein [Mass/Vol] 7.6 g/dL 6.4-8.2 [facility] Sodium [Moles/Vol] 136 mmol/L 136-145 [facility] WBC (Bld) [#/Vol] 5.1 10*3/uL 4.4-11.0 [facility] Blood erythrocytes count (nu mber/volume)Ordered By: [place] Pugh on 12-28-2021 RBC (Bld) [#/Vol] 4.60 10*6/uL 4.2-5.4 [facility] Blood hemoglobin measurement (mass/volume)Ordered By: [place] Pugh on 12-28-2021 Hemoglobin (Bld) [Mass/Vol] 13.7 g/dL 12.0-15.[address] [facility] Blood lymphocytes/100 leukoc ytesOrdered By: [place] Pugh on 12-28-2021 Lymphocytes/100 WBC (Bld) 43.4 % 19-[address] [facility] Blood monocytes/100 leukocyt esOrdered By: [facility] Keaton on 12-28-2021 Monocytes/100 WBC (Bld) 6.6 % 0-[address] [facility] Blood platelet mean volumeOr dered By: [facility] Keaton on 12-28-2021 Platelet mean volume (Bld) [Entitic vol] 9.3 fL 6.2-12.[address] [facility] Determination of erythrocyte mean corpuscular volume (MCV)Ordered By: [facility] Keaton on 12-28-2021 MCV (RBC) [Entitic vol] 87.6 fL 81-[address] [facility] Hematocrit Auto (Bld) [Volum e fraction]Ordered By: [facility] Keaton on 12-28-2021 Hematocrit (Bld) [Volume fraction] 40.3 % 37-[address] [facility] Laboratory - Chemistry and C hemistry - challengeOrdered By: [facility] Keaton on 12-28-2021 ALP [Catalytic activity/Vol] 98 U/L 45-[address] [facility] ALT [Catalytic activity/Vol] 30 U/L 13-[address] [facility] CO2 [Moles/Vol] 27.0 mmol/L 21.0-32.[address] [facility] Globulin (S) [Mass/Vol] 3.7 g/dL 2.2-4.[address] [facility] Urea nitrogen/Creatinine [Mass ratio] 18.0 mg/mg 10-[address] [facility] Laboratory - Hematology and Cell countsOrdered By: [facility] Keaton on 12-28-2021 Erythrocyte distribution width (RBC) [Entitic vol] 40.9 fL 35.1-43.[address] [facility] Erythrocyte distribution width (RBC) [Ratio] 12.9 % 11.6-14.[address] [facility] Immature granulocytes/100 WBC (Bld) 0.200 % 0.0-0.[address] [facility] Comment on above: IG% - Immature Granu locytes (promyelocytes, myelocytes and metamyelocytes) > 1% indicates that a LEFT SHIFT is Present. MCH (RBC) [Entitic mass] 29.8 pg 27.0-32.0 [facility] Nucleated RBC/100 W[facility] (Bld) [Ratio] 0 % [facility] [Mass/Vol]Or dered By: [place] Pugh on 12-28-2021 MCHC (RBC) [Mass/Vol] 34.0 g/dL 32-36 [facility] No Panel InformationOrdered By: [place] Pugh on 12-28-2021 Estimated Creatinine Clearance Calc 64.99 ml/min [facility] Estimated GFR (MDRD) Amer 79 mL/min >[address] [facility] Comment on above: GFR Calc Estimated GFR (MDRD) Non-Af Amer 65 mL/min >[address] [facility] Comment on above: Non- GFR Calc Platelets bldOrdered By: Jose Martin Pugh on 12-28-2021 Platelets (Bld) [#/Vol] 277 10*3/uL 150-[address] [facility] Serum or plasma albumin levi urement (mass/volume)Ordered By: [place] Pugh on 12-28-2021 Albumin [Mass/Vol] 3.9 g/dL 3.2-5.0 [facility] Serum or plasma albumin/glob ulin mass ratioOrdered By: [place] Pugh on 12-28-2021 Albumin/Globulin [Mass ratio] 1.1 {ratio} 0.9-2.[address] [facility] Serum or plasma calcium levi urement (mass/volume)Ordered By: [place] Pugh on 12-28-2021 Calcium [Mass/Vol] 9.3 mg/dL 8.5-10.1 [facility] Serum or plasma creatinine m easurement (mass/volume)Ordered By: [place] Pugh on 12-28-2021 Creatinine [Mass/Vol] 0.94 mg/dL 0.55-1.02 [facility] Comment on above: The validity of the calculated GFR & GFRAA in patients over 70 years has not been determined. Clinical correlation is essential. Serum or plasma urea nitroge n measurement (mass/volume)Ordered By: [place] Pugh on 12-28-2021 Urea nitrogen [Mass/Vol] 17 mg/dL 7-[address] [facility] Thin prep Papanicolaou smear with manual screeningOrdered By: [place] Pugh on 12-28-2021 Thin prep Papanicolaou smear with manual screening 22 U/L 15-[address] [facility] Thin prep Papanicolaou smear with manual screening 2 5-[address] [facility] Basophil percentageon 2021 Bilirubin [Mass/Vol] 0.20 mg/dL 0.20-1.00 [facility] Work Phone: Comment on above: For patients on eltr ombopag therapy, use of Dimension [place] TBIL is not recommended. Chloride [Moles/Vol] 110 mmol/L 98-107 [facility] Work Phone: Cholesterol [Mass/Vol] 231 mg/dL <200 [facility] Work Phone: Comment on above: <200 mg/dL Desirable 200-240 mg/dL Borderline >240 mg/dL High Risk Glucose [Mass/Vol] 96 mg/dL 74-106 [facility] Work Phone: Potassium [Moles/Vol] 4.7 mmol/L 3.5-5.1 [facility] Work Phone: Comment on above: Slight Hemolysis, Re sult may be falsely increased. Protein [Mass/Vol] 7.3 g/dL 6.4-8.2 [facility] Work Phone: Sodium [Moles/Vol] 141 mmol/L 136-145 [facility] Work Phone: Triglyceride [Mass/Vol] 144 mg/dL <[address] [facility] Work Phone: Comment on above: The drugs N-Acetylcy steine and Metamizole may falsely depress this assay.Serum Triglycerides Reference Interval Normal <150 mg/dL Borderline high 150 - 199 mg/dL High 200 - 499 mg/dL Very High > or = 500 mg/dL Laboratory - Chemistry and C hemistry - challengeon 11-13-2021 ALP [Catalytic activity/Vol] 88 U/L 45-[address] [facility] Work Phone: ALT [Catalytic activity/Vol] 40 U/L 13-[address] [facility] Work Phone: CO2 [Moles/Vol] 27.0 mmol/L 21.0-32.[address] [facility] Work Phone: Globulin (S) [Mass/Vol] 3.6 g/dL 2.2-4.[address] [facility] Work Phone: Urea nitrogen/Creatinine [Mass ratio] 19.2 mg/mg 10-[address] [facility] Work Phone: No Panel Informationon 11-13 Estimated GFR (MDRD) Amer 71 mL/min >[address] [facility] Work Phone: Comment on above: GFR Calc Estimated GFR (MDRD) Non-Af Amer 58 mL/min >[address] [facility] Work Phone: Comment on above: Non- GFR Calc Serum or plasma albumin levi urement (mass/volume)on 11-13-2021 Albumin [Mass/Vol] 3.7 g/dL 3.2-5.0 [facility] Work Phone: Serum or plasma albumin/glob ulin mass ratioon 11-13-2021 Albumin/Globulin [Mass ratio] 1.0 {ratio} 0.9-2.[address] [facility] Work Phone: Serum or plasma calcium levi urement (mass/volume)on 11-13-2021 Calcium [Mass/Vol] 8.7 mg/dL 8.5-10.1 [facility] Work Phone: Serum or plasma cholesterol in HDL measurement (mass/volume)on 11-13-2021 Cholesterol in HDL [Mass/Vol] 54 mg/dL >[address] [facility] Work Phone: Comment on above: The drugs N-Acetylcy steine and Metamizole may falsely depress this assay. Reference Range HDL <40 mg/dL Low HDL Cholesterol HDL >or= 60 mg/dL High HDL Cholesterol Serum or plasma cholesterol in VLDL measurement (mass/volume)on 11-13-2021 Cholesterol in VLDL [Mass/Vol] 29 mg/dL 5-[address] [facility] Work Phone: Serum or plasma creatinine m easurement (mass/volume)on 11-13-2021 Creatinine [Mass/Vol] 1.04 mg/dL 0.55-1.02 [facility] Work Phone: Comment on above: The validity of the calculated GFR & GFRAA in patients over 70 years has not been determined. Clinical correlation is essential. Serum or plasma low density lipoprotein (LDL) cholesterol measurement (mass/volume)on 11-13-2021 Cholesterol in LDL [Mass/Vol] 148 mg/dL 0-[address] [facility] Work Phone: Serum or plasma urea nitroge n measurement (mass/volume)on 11-13-2021 Urea nitrogen [Mass/Vol] 20 mg/dL 7-[address] [facility] Work Phone: Thin prep Papanicolaou smear with manual screeningon 11-13-2021 Thin prep Papanicolaou smear with manual screening 33 U/L 15-[address] [facility] Work Phone: Comment on above: Slight Hemolysis, Re sult may be falsely increased. Thin prep Papanicolaou smear with manual screening 4 5-[address] [facility] Work Phone: Absolute lymphocyte counton 07-23-2021 Lymphocytes Auto (Unsp spec) [#/Vol] 1.80 10*3/uL 0.83-4.[address] [facility] Work Phone: Basophil percentageon 2021 Basophil percentage Not Reportable [facility] Work Phone: Basophils/100 WBC (Bld) 0.2 % 0-[address] [facility] Work Phone: Bilirubin [Mass/Vol] 0.30 mg/dL 0.20-1.00 [facility] Work Phone: Comment on above: For patients on eltr ombopag therapy, use of Dimension [place] TBIL is not recommended. Chloride [Moles/Vol] 107 mmol/L 98-107 [facility] Work Phone: Cholesterol [Mass/Vol] 265 mg/dL <200 [facility] Work Phone: Comment on above: <200 mg/dL Desirable 200-240 mg/dL Borderline >240 mg/dL High Risk Eosinophils/100 WBC (Bld) 3.5 % 0-[address] [facility] Work Phone: Glucose [Mass/Vol] 93 mg/dL 74-106 [facility] Work Phone: Neutrophils (Bld) [#/Vol] 2.5 10*3/uL 2.0-7.[address] [facility] Work Phone: Neutrophils/100 WBC (Bld) 52.0 % 47-[address] [facility] Work Phone: Potassium [Moles/Vol] 4.3 mmol/L 3.5-5.1 [facility] Work Phone: Protein [Mass/Vol] 7.7 g/dL 6.4-8.2 [facility] Work Phone: Sodium [Moles/Vol] 137 mmol/L 136-145 [facility] Work Phone: Triglyceride [Mass/Vol] 134 mg/dL <[address] [facility] Work Phone: Comment on above: The drugs N-Acetylcy steine and Metamizole may falsely depress this assay.Serum Triglycerides Reference Interval Normal <150 mg/dL Borderline high 150 - 199 mg/dL High 200 - 499 mg/dL Very High > or = 500 mg/dL WBC (Bld) [#/Vol] 4.9 10*3/uL 4.4-11.0 [facility] Work Phone: Blood erythrocytes count (nu mber/volume)on 07-23-2021 RBC (Bld) [#/Vol] 4.72 10*6/uL 4.2-5.4 [facility] Work Phone: Blood hemoglobin measurement (mass/volume)on 07-23-2021 Hemoglobin (Bld) [Mass/Vol] 14.5 g/dL 12.0-15.[address] [facility] Work Phone: Blood lymphocytes/100 leukoc yteson 07-23-2021 Lymphocytes/100 WBC (Bld) 36.9 % 19-[address] [facility] Work Phone: Blood monocytes/100 leukocyt eson 07-23-2021 Monocytes/100 WBC (Bld) 7.2 % 0-[address] [facility] Work Phone: Blood platelet mean volumeon 07-23-2021 Platelet mean volume (Bld) [Entitic vol] 9.7 fL 6.2-12.[address] [facility] Work Phone: Determination of erythrocyte mean corpuscular volume (MCV)on 07-23-2021 MCV (RBC) [Entitic vol] 89.4 fL 81-[address] [facility] Work Phone: Erythrocyte sedimentation ra alisa 07-23-2021 ESR (Bld) [Velocity] 18 mm/h 0-30 [facility] Work Phone: Hematocrit Auto (Bld) [Volum e fraction]on 07-23-2021 Hematocrit (Bld) [Volume fraction] 42.2 % 37-[address] [facility] Work Phone: Laboratory - Chemistry and C hemistry - challengeon 07-23-2021 ALP [Catalytic activity/Vol] 100 U/L 45-[address] [facility] Work Phone: ALT [Catalytic activity/Vol] 31 U/L 13-[address] [facility] Work Phone: CO2 [Moles/Vol] 25.0 mmol/L 21.0-32.[address] [facility] Work Phone: Globulin (S) [Mass/Vol] 3.8 g/dL 2.2-4.[address] [facility] Work Phone: Urea nitrogen/Creatinine [Mass ratio] 17.0 mg/mg 10-[address] [facility] Work Phone: Laboratory - Hematology and Cell countson 07-23-2021 Erythrocyte distribution width (RBC) [Entitic vol] 47.3 fL 35.1-43.[address] [facility] Work Phone: Erythrocyte distribution width (RBC) [Ratio] 14.6 % 11.6-14.[address] [facility] Work Phone: Immature granulocytes/100 WBC (Bld) 0.200 % 0.0-0.[address] [facility] Work Phone: Comment on above: IG% - Immature Granu locytes (promyelocytes, myelocytes and metamyelocytes) > 1% indicates that a LEFT SHIFT is Present. MCH (RBC) [Entitic mass] 30.7 pg 27.0-32.[address] [facility] Work Phone: Nucleated RBC/100 WBC (Bld) [Ratio] 0 % 0-[address] [facility] Work Phone: MCHC Auto (RBC) [Mass/Vol]on 07-23-2021 MCHC (RBC) [Mass/Vol] 34.4 g/dL 32-36 [facility] Work Phone: No Panel Informationon 07-23 Anti-Nuclear Antibody Screen Negative Negative [facility] Work Phone: Comment on above: Performed at: [address] [id number] Director: Jensen Green PhD, Phone: [phone] Centromere B Antibody Not Reportable [facility] Work Phone: Estimated GFR (MDRD) Amer 69 mL/min >[address] [facility] Work Phone: Comment on above: GFR Calc Estimated GFR (MDRD) Non-Af Amer 57 mL/min >[address] 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 Work Phone: Thyroid Stimulating Hormone (TSH) 1.44 uIU/mL 0.358-3.[address] [facility] Work Phone: Platelets bldon 07-23-2021 Platelets (Bld) [#/Vol] 330 10*3/uL 150-[address] 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 Work Phone: Comment on above: Previous reported re sult: ND Edited by: GILBERTO on 07/24/21:1244 AMENDED REPORT 07/24/21 1244 dsDNA AB previously reported as: ND Serum Darlin-1 antibody assay (u nits/volume)on 07-23-2021 Darlin-1 extractable nuclear Ab Qn (S) Not Reportable [facility] Work Phone: Serum Scl-70 extractable nuc lear antibody assay (units/volume)on 07-23-2021 SCL-70 extractable nuclear Ab Qn (S) Not Reportable [facility] Work Phone: Serum Guzman extractable nucl ear antibody detectionon 07-23-2021 Guzman extractable nuclear Ab Ql (S) Not Reportable [facility] Work Phone: Serum cyclic citrullinated p eptide IgG antibody assay (units/volume)on 07-23-2021 Cyclic citrullinated peptide IgG Qn 8 units 0-[address] [facility] Work Phone: Comment on above: Negative <20 Weak po sitive 20 - 39 Moderate positive 40 - 59 Strong positive >59Performed at: - [facility] [address] [id number] Director: Jesus Marinelli MD, Phone: [phone] Serum or plasma C reactive p rotein measurement (mass/volume)on 07-23-2021 CRP [Mass/Vol] mg/L 0.0-3.[address] [facility] Work Phone: Comment on above: C-Reactive Protein ( CRP) provides useful information for thediagnosis, therapy and monitoring of inflammatory processesand associated diseases. For the evaluation of Relative Riskfor Cardiovascular Disease, a High Sensitivity CRP (HSCRP)should be ordered. Serum or plasma albumin levi urement (mass/volume)on 07-23-2021 Albumin [Mass/Vol] 3.9 g/dL 3.2-5.0 [facility] Work Phone: Serum or plasma albumin/glob ulin mass ratioon 07-23-2021 Albumin/Globulin [Mass ratio] 1.0 {ratio} 0.9-2.[address] [facility] Work Phone: Serum or plasma calcium levi urement (mass/volume)on 07-23-2021 Calcium [Mass/Vol] 9.7 mg/dL 8.5-10.1 [facility] Work Phone: Serum or plasma cholesterol in HDL measurement (mass/volume)on 07-23-2021 Cholesterol in HDL [Mass/Vol] 57 mg/dL >[address] [facility] Work Phone: Comment on above: The drugs N-Acetylcy steine and Metamizole may falsely depress this assay. Reference Range HDL <40 mg/dL Low HDL Cholesterol HDL >or= 60 mg/dL High HDL Cholesterol Serum or plasma cholesterol in VLDL measurement (mass/volume)on 07-23-2021 Cholesterol in VLDL [Mass/Vol] 27 mg/dL 5-[address] [facility] Work Phone: Serum or plasma creatinine m easurement (mass/volume)on 07-23-2021 Creatinine [Mass/Vol] 1.06 mg/dL 0.55-1.02 [facility] Work Phone: Comment on above: The validity of the calculated GFR & GFRAA in patients over 70 years has not been determined. Clinical correlation is essential. Serum or plasma low density lipoprotein (LDL) cholesterol measurement (mass/volume)on 07-23-2021 Cholesterol in LDL [Mass/Vol] 181 mg/dL 0-[address] [facility] Work Phone: Serum or plasma urea nitroge n measurement (mass/volume)on 07-23-2021 Urea nitrogen [Mass/Vol] 18 mg/dL 7-[address] [facility] Work Phone: Serum rheumatoid factor dete ctionon 07-23-2021 Rheumatoid factor Ql (S) < 10.0 IU/mL <[address] [facility] Work Phone: Thin prep Papanicolaou smear with manual screeningon 07-23-2021 Thin prep Papanicolaou smear with manual screening 22 U/L 15-[address] [facility] Work Phone: Thin prep Papanicolaou smear with manual screening 5 5-[address] [facility] Work Phone: Absolute reticulocyte counto n 12-14-2018 Reticulocytes (Bld) [#/Vol] 0.00 10*3/uL 0-[address] [facility] Erythrocyte distribution wid th standard deviationon 11-02-2018 Erythrocyte distribution width (RBC) [Entitic vol] 43.4 fL 35.1-43.[address] [facility] Laboratory - Hematology and Cell countson 11-02-2018 Erythrocyte distribution width (RBC) [Ratio] 13.4 % 11.6-14.[address] [facility] Total cell counton 9 Cells counted [employer] (Bld/Tiss) [#] Not Reportable [facility] Blood platelet adequacy dete ction by light microscopyon 05-03-2018 Platelets LM Ql (Bld) ADEQUATE ADEQ [facility] Blood polychromasia detectio n by light microscopyon 05-03-2018 Polychromasia LM Ql (Bld) RARE [facility] Laboratory - Hematology and Cell countson 05-03-2018 Band form neutrophils/100 WBC (Bld) 2 % 0-[address] [facility] Lymphocytes/100 WBC (Bld) 23 % 19-[address] [facility] Metamyelocytes/100 WBC (Bld) 1 % 0-[address] [facility] Monocytes/100 WBC (Bld) 11 % 0-[address] [facility] Neutrophils/100 WBC (Bld) 62 % 47-[address] [facility] No Panel Informationon 05-03 Promyelocytes % 1 0-[address] [facility] Review by pathologiston Pathologist review Oumar (Unsp spec) [Interp] Reviewed [facility] Comment on above: Previous reported re sult: Chela martha Edited by: RGOOD on 05/04/18:1022Neutrophilic left shift.Clinical correlation necessary.Teddy Angel M.D. 05/04/18 AMENDED REPORT 05/04/18 1022 PATH REV previously reported as: September martha No Panel Informationon 04-12 Differential Comment See comment [facility] Comment on above: SLIDE SCANNED - 1+ A NISO. Laboratory - Hematology and Cell countson 03-22-2018 Myelocytes/100 WBC (Bld) 1 % 0-[address] [facility] RBC morphologyon 03-22-2018 RBC morphology finding Nom (Bld) NORM C+C NORMAL NORM C&C [facility] Laboratory - Hematology and Cell countson 03-13-2018 Anisocytosis Ql (Bld) 1+ [facility] Iron measurement (mass/mass) on 02-20-2018 Iron (Unsp spec) [Mass/Mass] 75 ug/dL 50-[address] [facility] No Panel Informationon 02-20 Total Iron Binding Capacity 269 ug/dL 250-[address] [facility] Serum or plasma ferritin roberth surement (mass/volume)on 02-20-2018 Ferritin [Mass/Vol] 131 ng/mL 8-252 [facility] Serum or plasma iron saturat ion measurement (mass fraction)on 02-20-2018 Iron saturation [Mass fraction] 27.9 % 15.0-55.[address] [facility] Stool enteric pathogen panel by probe and target amplification methodon 02-10-2018 Gastrointestinal pathogens panel EDWIN+probe (Stl) [facility] Eosinophils/100 WBC Auto (Bl d)on 02-09-2018 Eosinophils/100 WBC (Bld) 3 % 0-[address] [facility] Laboratory - Chemistry and C hemistry - challengeon 02-09-2018 Magnesium [Mass/Vol] 2.0 mg/dL 1.6-2.6 [facility] Hypochromatic red blood cell detectionon 01-18-2018 Hypochromia Ql (Bld) RARE [facility] Toxic leukocyte granulation detectionon 01-18-2018 Toxic granules LM Ql (Bld) 2+ [facility] Serum or plasma vitamin B12 measurement (mass/volume)on 01-09-2018 Cobalamin (Vitamin B12) [Mass/Vol] 449 pg/mL 211-[address] [facility] Vital Signs Date Time Vital Sign Value Performing Clinician Jeffrey pryor 05-13-2023 08:18-0500 Body height 162.[address] Tricia Frausto Work Phone: [facility] 05-13-2023 08:18-0500 Body mass index (BMI) [Ratio] 30.5 kg/m2 Dr. Tricia Frausto Work Phone: [facility] 05-13-2023 08:18-0500 Body temperature 97.7 [degF] Dr. Tricia Frausto Work Phone: [facility] 05-13-2023 08:18-0500 Body weight 80.[address] Tricia Frausto Work Phone: [facility] 05-13-2023 08:18-0500 Diastolic blood pressure 80 mm[Hg] Dr. Tricia Frausto Work Phone: [facility] 05-13-2023 08:18-0500 Heart rate 91 /min Dr. Tricia Frausto Work Phone: [facility] 05-13-2023 08:18-0500 Respiratory rate 16 /min Dr. Tricia Frausto Work Phone: [facility] 05-13-2023 08:18-0500 SaO2% (BldA) [Mass fraction] 97 % Dr. Tricia Frausto Work Phone: [facility] 05-13-2023 08:18-0500 Systolic blood pressure 140 mm[Hg] Dr. Tricia Frausto Work Phone: [facility] 02-10-2023 10:52-0400 SaO2% (BldA) [Mass fraction] 98 % Dr. Tricia Frausto Work Phone: [facility] 02-10-2023 10:50-0400 Diastolic blood pressure 66 mm[Hg] Dr. Tricia Frausto Work Phone: [facility] 02-10-2023 10:50-0400 Heart rate 72 /min Dr. Tricia Frausto Work Phone: [facility] 02-10-2023 10:50-0400 Respiratory rate 15 /min Dr. Tricia Frausto Work Phone: [facility] 02-10-2023 10:50-0400 Systolic blood pressure 134 mm[Hg] Dr. Tricia Frausto Work Phone: [facility] 02-10-2023 09:25-0400 Body height 162.[address] Tricia Frausto Work Phone: [facility] 02-10-2023 09:25-0400 Body temperature 97.9 [degF] Dr. Tricia Frausto Work Phone: [facility] 02-09-2023 13:59-0400 Body mass index (BMI) [Ratio] 30.2 kg/m2 Dr. Tricia Frausto Work Phone: [facility] 02-09-2023 13:59-0400 Body weight 80.[address] Tricia Frausto Work Phone: [facility] 02-09-2023 13:59-0400 Diastolic blood pressure 86 mm[Hg] Dr. Tricia Frausto Work Phone: [facility] 02-09-2023 13:59-0400 Systolic blood pressure 128 mm[Hg] Dr. Tricia Frausto Work Phone: [facility] 12-27-2022 15:21-0400 Body mass index (BMI) [Ratio] 30 kg/m2 Dr. Tricia Frausto Work Phone: [facility] 12-27-2022 15:21-0400 Body weight 79.[address] Tricia Frausto Work Phone: [facility] 12-27-2022 14:37-0400 Body mass index (BMI) [Ratio] 30.5 kg/m2 Dr. Tricia Frausto Work Phone: [facility] 12-27-2022 14:37-0400 Body temperature 98.3 [degF] Dr. Tricia Frausto Work Phone: [facility] 12-27-2022 14:37-0400 Body weight 80.[address] Tricia Frausto Work Phone: [facility] 12-27-2022 14:37-0400 Diastolic blood pressure 95 mm[Hg] Dr. Tricia Frausto Work Phone: [facility] 12-27-2022 14:37-0400 Heart rate 96 /min Dr. Tricia Frausto Work Phone: [facility] 12-27-2022 14:37-0400 Respiratory rate 18 /min Dr. Tricia Frausto Work Phone: [facility] 12-27-2022 14:37-0400 SaO2% (BldA) [Mass fraction] 96 % Dr. Tricia Frausto Work Phone: [facility] 12-27-2022 14:37-0400 Systolic blood pressure 139 mm[Hg] Dr. Tricia Frausto Work Phone: [facility] 12-06-2022 09:27-0400 Body height 162.[address] Tricia Frausto Work Phone: [facility] 12-06-2022 09:27-0400 Body mass index (BMI) [Ratio] 29.9 kg/m2 Dr. Tricia Frausto Work Phone: [facility] 12-06-2022 09:27-0400 Body temperature 97.1 [degF] Dr. Tricia Frausto Work Phone: [facility] 12-06-2022 09:27-0400 Body weight 79.[address] Tricia Frausto Work Phone: [facility] 12-06-2022 09:27-0400 Diastolic blood pressure 78 mm[Hg] Dr. Tricia Frausto Work Phone: [facility] 12-06-2022 09:27-0400 Heart rate 90 /min Dr. Tricia Frausto Work Phone: [facility] 12-06-2022 09:27-0400 Respiratory rate 18 /min Dr. Tricia Frausto Work Phone: [facility] 12-06-2022 09:27-0400 SaO2% (BldA) [Mass fraction] 98 % Dr. Tricia Frausto Work Phone: [facility] 12-06-2022 09:27-0400 Systolic blood pressure 122 mm[Hg] Dr. Tricia Frausto Work Phone: [facility] 05-13-2022 10:19-0500 Body temperature 97.9 [degF] Dr. Tricia Frausto Work Phone: [facility] Work Phone: 05-13-2022 10:19-0500 Diastolic blood pressure 76 mm[Hg] Dr. Tricia Frausto Work Phone: [facility] Work Phone: 05-13-2022 10:19-0500 Heart rate 120 /min Dr. Tricia Frausto Work Phone: [facility] Work Phone: 05-13-2022 10:19-0500 Respiratory rate 14 /min Dr. Tricia Frausto Work Phone: [facility] Work Phone: 05-13-2022 10:19-0500 SaO2% (BldA) [Mass fraction] 96 % Dr. Tricia Frausto Work Phone: [facility] Work Phone: 05-13-2022 10:19-0500 Systolic blood pressure 144 mm[Hg] Dr. Tricia Frausto Work Phone: [facility] Work Phone: 04-29-2022 08:12-0500 Body temperature 99.2 [degF] Dr. Tricia Frausto Work Phone: [facility] Work Phone: 04-29-2022 08:12-0500 Diastolic blood pressure 78 mm[Hg] Dr. Tricia Frausto Work Phone: [facility] Work Phone: 04-29-2022 08:12-0500 Heart rate 104 /min Dr. Tricia Frausto Work Phone: [facility] Work Phone: 04-29-2022 08:12-0500 Respiratory rate 14 /min Dr. Tricia Frausto Work Phone: [facility] Work Phone: 04-29-2022 08:12-0500 SaO2% (BldA) [Mass fraction] 98 % Dr. Tricia Frausto Work Phone: [facility] Work Phone: 04-29-2022 08:12-0500 Systolic blood pressure 128 mm[Hg] Dr. Tricia Frausto Work Phone: [facility] Work Phone: 03-19-2022 15:09-0400 Body height 163.[address] Tricia Frausto Work Phone: [facility] Work Phone: 03-19-2022 15:09-0400 Body mass index (BMI) [Ratio] 28.9 kg/m2 Dr. Tricia Frausto Work Phone: [facility] Work Phone: 03-19-2022 15:09-0400 Body temperature 97.7 [degF] Dr. Tricia Frausto Work Phone: [facility] Work Phone: 03-19-2022 15:09-0400 Body weight 77.[address] Tricia Frausto Work Phone: [facility] Work Phone: 03-19-2022 15:09-0400 Diastolic blood pressure 100 mm[Hg] Dr. Tricia Frausto Work Phone: [facility] Work Phone: 03-19-2022 15:09-0400 Heart rate 98 /min Dr. Tricia Frausto Work Phone: [facility] Work Phone: 03-19-2022 15:09-0400 Respiratory rate 16 /min Dr. Tricia Frausto Work Phone: [facility] Work Phone: 03-19-2022 15:09-0400 SaO2% (BldA) [Mass fraction] 98 % Dr. Tricia Frausto Work Phone: [facility] Work Phone: 03-19-2022 15:09-0400 Systolic blood pressure 148 mm[Hg] Dr. Tricia Frausto Work Phone: [facility] Work Phone: 02-04-2022 15:15-0400 Body mass index (BMI) [Ratio] 28.7 kg/m2 Dr. Tricia Frausto Work Phone: [facility] Work Phone: 02-04-2022 15:15-0400 Body weight 75.[address] Tricia Frausto Work Phone: [facility] Work Phone: 02-04-2022 15:15-0400 Diastolic blood pressure 84 mm[Hg] Dr. Tricia Frausto Work Phone: [facility] Work Phone: 02-04-2022 15:15-0400 Systolic blood pressure 138 mm[Hg] Dr. Tricia Frausto Work Phone: [facility] Work Phone: 11-13-2021 08:11-0400 Body height 163.[address] Tricia Frausto Work Phone: [facility] Work Phone: 11-13-2021 08:11-0400 Body mass index (BMI) [Ratio] 28.3 kg/m2 Dr. Tricia Frausto Work Phone: [facility] Work Phone: 11-13-2021 08:11-0400 Body temperature 97.9 [degF] Dr. Tricia Frausto Work Phone: [facility] Work Phone: 11-13-2021 08:11-0400 Body weight 75.[address] Tricia Frausto Work Phone: [facility] Work Phone: 11-13-2021 08:11-0400 Diastolic blood pressure 64 mm[Hg] Dr. Tricia Frausto Work Phone: [facility] Work Phone: 11-13-2021 08:11-0400 Heart rate 104 /min Dr. Tricia Frausto Work Phone: [facility] Work Phone: 11-13-2021 08:11-0400 Respiratory rate 16 /min Dr. Tricia Frausto Work Phone: [facility] Work Phone: 11-13-2021 08:11-0400 SaO2% (BldA) [Mass fraction] 97 % Dr. Tricia Frausto Work Phone: [facility] Work Phone: 11-13-2021 08:11-0400 Systolic blood pressure 138 mm[Hg] Dr. Tricia Frausto Work Phone: [facility] Work Phone: 08-10-2021 08:32-0400 Body mass index (BMI) [Ratio] 28.9 kg/m2 Dr. Tricia Frausto Work Phone: [facility] Work Phone: 08-10-2021 08:32-0400 Body temperature 96.6 [degF] Dr. Tricia Frausto Work Phone: [facility] Work Phone: 08-10-2021 08:32-0400 Body weight 77.[address] Tricia Frausto Work Phone: [facility] Work Phone: 08-10-2021 08:32-0400 Diastolic blood pressure 80 mm[Hg] Dr. Tricia Frausto Work Phone: [facility] Work Phone: 08-10-2021 08:32-0400 Heart rate 104 /min Dr. Tricia rFausto Work Phone: [facility] Work Phone: 08-10-2021 08:32-0400 Respiratory rate 16 /min Dr. Tricia Frausto Work Phone: [facility] Work Phone: 08-10-2021 08:32-0400 SaO2% (BldA) [Mass fraction] 96 % Dr. Tricia Frausto Work Phone: [facility] Work Phone: 08-10-2021 08:32-0400 Systolic blood pressure 150 mm[Hg] Dr. Tricia Frausto Work Phone: [facility] Work Phone: 07-23-2021 10:34-0500 Body mass index (BMI) [Ratio] 28.9 kg/m2 Dr. Tricia Frausto Work Phone: [facility] Work Phone: 07-23-2021 10:34-0500 Body temperature 97.1 [degF] Dr. Tricia Frausto Work Phone: [facility] Work Phone: 07-23-2021 10:34-0500 Body weight 77.[address] Tricia Frausto Work Phone: [facility] Work Phone: 07-23-2021 10:34-0500 Diastolic blood pressure 98 mm[Hg] Dr. Tricia Frausto Work Phone: [facility] Work Phone: 07-23-2021 10:34-0500 Heart rate 97 /min Dr. Tricia Frausto Work Phone: [facility] Work Phone: 07-23-2021 10:34-0500 Respiratory rate 16 /min Dr. Tricia Frausto Work Phone: [facility] Work Phone: 07-23-2021 10:34-0500 SaO2% (BldA) [Mass fraction] 95 % Dr. Tricia Frausto Work Phone: [facility] Work Phone: 07-23-2021 10:34-0500 Systolic blood pressure 162 mm[Hg] Dr. Tricia Frausto Work Phone: [facility] Work Phone: 11-27-2020 14:01-0400 Body temperature 97.1 [degF] Dr. Tricia Frausto Work Phone: [facility] 11-27-2020 14:01-0400 Diastolic blood pressure 76 mm[Hg] Dr. Tricia Frausto Work Phone: [facility] 11-27-2020 14:01-0400 Heart rate 96 /min Dr. Tricia Frausto Work Phone: [facility] 11-27-2020 14:01-0400 Respiratory rate 16 /min Dr. Tricia Frausto Work Phone: [facility] 11-27-2020 14:01-0400 SaO2% (BldA) [Mass fraction] 97 % Dr. Tricia Frausto Work Phone: [facility] 11-27-2020 14:01-0400 Systolic blood pressure 125 mm[Hg] Dr. Tricia Frausto Work Phone: [facility] Encounters Encounter Date Encounter Type Care Provider Facility Start: 05-18-2024 End: 05-18-2024 [facility] Start: 02-22-2024 Encounter for gynecological examination (general) (routine) without abnormal findings Ifeoma Becerra NP [facility] Start: 02-22-2024 End: [facility] Start: 02-22-2024 End: [facility] Start: 12-27-2023 End: 12-27-2023 ambulatory [place] [facility] Facility:[facility] Start: 12-19-2023 End: 12-19-2023 ambulatory [facility] Facility:[facility] Start: 11-16-2023 Encounter for genera l adult medical examination without abnormal [facility]: 11-16-2023 End: [facility] Start: 11-16-2023 End: 11-16-2023 ambulatory [facility] Facility:[facility] Start: 06-16-2023 Encounter for other preprocedural examination Norman Burrellqiana [facility] Start: 06-13-2023 End: 06-13-[address] Tricia Frausto Work Phone: [facility] Work Phone: Start: 06-13-2023 End: 06-13-[address] Tricia Frausto Work Phone: [facility]-P[facility] Services/Neurology Work Phone: Start: 06-13-2023 End: 06-13-2023 ambulatory [facility] Facility:[facility] Start: 05-13-2023 End: 05-13-[address] Tricia Frausto Work Phone: [facility] Work Phone: Start: 02-10-2023 End: 02-10-2023 Emergency department patient visit Dr. Tricia Frausto Work Phone: [facility] [facility] Work Phone: Start: 02-09-2023 End: 02-09-[address] Tricia Frausto Work Phone: [facility] Work Phone: Start: 12-27-[address] Oli Frausto Work Phone: [facility] On[facility] Start: 12-27-2022 End: 12-27-[address] Tricia Frausto Work Phone: [facility] Work Phone: Start: 12-15-2022 End: 12-15-[address] Tricia Frausto Work Phone: [facility]-Outpatient Bone Densitometry Work Phone: Start: 12-06-2022 End: 12-06-[address] Tricia Frausto Work Phone: [facility] Work Phone: Start: 12-06-2022 End: 12-06-[address] Tricia Frausto Work Phone: [facility] Internal Medicine Work Phone: Start: 05-13-2022 End: 05-13-[address] Tricia Frausto Work Phone: [facility] Work Phone: Start: 05-13-2022 End: 05-13-[address] Tricia Frausto Work Phone: [facility] Internal Medicine Start: 04-29-2022 End: 04-29-[address] Tricia Frausto Work Phone: [facility] Start: 03-22-2022 End: 03-22-[address] Tricia Frausto Work Phone: [facility] Radiology Start: 03-19-2022 End: 03-19-[address] Tricia Frausto Work Phone: [facility] Internal Medicine Start: 02-04-2022 End: 02-04-[address] Tricia Frausto Work Phone: [facility] Start: 11-13-2021 End: 11-13-[address] Tricia Frausto Work Phone: [facility] Internal Medicine Start: 08-10-2021 End: 08-10-[address] Tricia Frausto Work Phone: [facility] Medicine Start: 07-23-2021 End: 07-23-[address] Tricia Frausto Work Phone: [facility], [place] Start: 02-09-[address] Awa Frausto Work Phone: [facility] Work Phone: Procedures Date Procedure Procedure Detail Performing Clinician Start: 12-15-2022 Dual energy X-ray absorptiometry Dr. Tricia Frausto Work Phone: Start: 12-15-2022 Screening mammograph y of right breast Dr. Tricia Frausto Work Phone: Start: 03-22-2022 X-ray of both feet Dr. Tricia Frausto Work Phone: Start: 02-10-[address] Tricia Frausto Work Phone: History of mastectomy Hx of mastectomy Dr Sarmad Frausto Work Phone: Plan of Treatment Date Care Activity Detail Author Start: 03-19-2022 Patient referral [facility] Work Phone: Start: 06-22-2018 [facility] Start: 05-03-2018 [facility] Start: 04-12-2018 [facility] Start: 03-22-2018 [facility] Start: 02-09-2018 [facility] Start: 01-18-2018 [facility] Start: 01-09-2018 [facility] Start: 12-21-2017 [facility] Magnesium [Mass/volu me] in Serum or Plasma [facility] Patient Education ED CONTUSION F dipti [w/ Wake Up] [facility] Work Phone: Patient referral [facility] Work Phone: [facility] Immunizations Immunization Date Immunization Notes Care Provider Guillemrina ness 03-19-2022 influenza, injectabl e, quadrivalent, preservative free Dr. Tricia Frausto Work Phone: [facility] 03-19-2022 influenza, seasonal, injectable Dr. Tricia Frausto Work Phone: [facility] 08-22-2020 Covid (Moderna) Dr. Liliya Frausto Work Phone: [facility] 08-16-2020 Covid (Moderna) Dr. Liliya Frausto Work Phone: [facility] 04-02-2020 influenza, injectable,quadrivalent , preservative free, pediatric Dr. Tricia Frausto Work Phone: [facility] 03-13-2018 influenza, injectabl e, quadrivalent, preservative free Dr. Tricia Frausto Work Phone: [facility] 03-13-2018 influenza, seasonal, injectable Dr. Tricia Frausto Work Phone: [facility] Payers Date Payer Category Payer Unknown [id number] 2017 Self-pay [id number] 2017 Unknown [id number] Unknown [id number] 2.16.8 [id number] Unknown [id number] 2.16.8 [id number] Unknown [id number] 2.16.8 [id number] Unknown [id number] 2.16.8 [id number] Unknown [id number] 2.16.8 [id number] Unknown [id number] 2.16.8 [id number] Unknown [id number] 2.16.8 [id number] Unknown [id number] 2.16.8 [id number] Unknown [id number] 2.16.8 [id number] Social History Date Type Detail Facility Start: 11-13-2021 End: 05-13-2023 Tobacco smoking status CAIS Unknown if ever smoked [facility] Start: 06-01-2018 Non-smoker [facility] Start: 1965 Sex Assigned At Female W [facility] Medical Equipment Procedure Code Equipment Code Equipment Origin al Text Equipment Identifier Dates PORT,6FR POWER PORT FDA Start : 12-28-2017 SUTURE,LIGA CLIP MED [id number] FDA Start: 05-31-2018 SUTURE,LIGA CLIP MED [id number] FDA Start: 05-31-2018 SUTURE,LIGA CLIP SM LT-100 FDA Start: 05-31-2018 SUTURE,LIGA CLIP SM LT-100 FDA Start: 05-31-2018 PORT,6FR POWER PORT FDA Start : 12-28-2017 SUTURE,LIGA CLIP MED [id number] FDA Start: 05-31-2018 SUTURE,LIGA CLIP MED [id number] FDA Start: 05-31-2018 SUTURE,LIGA CLIP SM LT-100 FDA Start: 05-31-2018 SUTURE,LIGA CLIP SM LT-100 FDA Start: 05-31-2018 PORT,6FR POWER PORT FDA Start : 12-28-2017 SUTURE,LIGA CLIP MED [id number] FDA Start: 05-31-2018 SUTURE,LIGA CLIP MED [id number] FDA Start: 05-31-2018 SUTURE,LIGA CLIP SM LT-100 FDA Start: 05-31-2018 SUTURE,LIGA CLIP SM LT-100 FDA Start: 05-31-2018 PORT,6FR POWER PORT FDA Start : 12-28-2017 SUTURE,LIGA CLIP MED [id number] FDA Start: 05-31-2018 SUTURE,LIGA CLIP MED [id number] FDA Start: 05-31-2018 SUTURE,LIGA CLIP SM LT-100 FDA Start: 05-31-2018 SUTURE,LIGA CLIP SM LT-100 FDA Start: 05-31-2018 PORT,6FR POWER PORT FDA Start : 12-28-2017 SUTURE,LIGA CLIP MED LT200 FDA Start: 05-31-2018 SUTURE,LIGA CLIP MED [id number] FDA Start: 05-31-2018 SUTURE,LIGA CLIP SM LT-100 FDA Start: 05-31-2018 SUTURE,LIGA CLIP SM LT-100 FDA Start: 05-31-2018 Mental Status Date Assessment Result Facility 12-27-2022 Cognitive function Awake;Alert;A ppropriate;Follo ws Commands [facility] Work Phone: 06-28-2022 Cognitive function Arousable To Voice/Nam e [facility] Work Phone: 05-10-2019 Cognitive function Mood Descript ion Appropriate;Calm;Relaxed [facility] Work Phone: Discharge summary Note Date & Type Note Facility Discharge summary Note Date/Time February 10, 2023 9:42am [facility] Medical Records Department [address] [place] [address] Emergency Department Summary 02/10/23 MR#: [id number] Acct: [id number] Name: SHELBY WORKMAN Rep #:[id number] : 1965 57 From: Octavio Sierra MD PCP: Dr. Tricia Frausto MD Status:P RE ER Location: ED HPI HPI - Fall History of Present Illness Chief Complaint: Trauma Narrative Narrative: Events after a mechanical fall. She was try to walk her dog and she fell into adoor frame injuring the bridge of her nose. No loss of consciousness no neck pain she is denying any other injuries. Her nose swallowed up and had some nasal bleeding initially which stopped on its own. [facility] Medical History (Updated 02/10/23 @ 09:[address] 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 Hot flashes Hyperlipidemia Hypertension Influenza Normal colonoscopy Osteopenia Pain of left heel Pain, joint, multiple sites Potential for delayed tissue healing Seasonal allergies Shingles Tachycardia Home Medications PROBIOTIC 1 tab PO DAILY 07/14/18 [History Last Taken Unknown] calcium carbonate 500 mg-vitamin D3 10 mcg (400 unit) tablet 1 tab PO BID 07/14/18 [History Last Taken Unknown] denosumab 60 mg/mL subcutaneous syringe (Prolia) 60 mg subcut [id number] 01/05/21 [History Last Taken Unknown] amlodipine 10 mg tablet 10 mg PO DAILY #90 tabs 05/13/22 [Rx Last Taken Unknown] venlafaxine 75 mg capsule,extended release 24 hr 75 mg PO DAILY 90 days #90 caps06/28/22 [Rx Last Taken Unknown] anastrozole 1 mg tablet See Rx Instructions .Route .COMPLEX #90 tabs 12/24/22 [Rx Last Taken Unknown] atorvastatin 20 mg tablet 20 mg PO DAILY #60 tabs 01/04/23 [Rx Last Taken Unknown] clindamycin HCl 150 mg capsule 150 mg PO TID 5 days #15 caps 02/10/23 [Rx Last Taken Unknown] Allergy/AdvReac Type Severity Reaction Status Date / Time No Known Allergies Allergy Verified 02/10/23 09:28 Family History Mother Diabetes Daughter Diabetes Surgical History (Updated 02/09/23 @ 14:26 by Ifeoma Becerra NP, ESL TEACHER-C) Hx of mastectomy S/P foot surgery S/P tubal ligation Social History household members: spouse number of children: 3 current occupational status: employed current occupation: [employer] history of recent travel: No sexually active: Yes Smoking Status: Never smoker alcohol intake: never substance use type: does not use well-balanced diet: daily or most days what type of physical activity do you participate in: walking and weight training frequency: daily seatbelt use: always do you feel safe at home: Yes additional social history: - Lul ARGUELLO ROS ED ROS Narrative Social: Noncontributory Medications: Reviewed the patient is not anticoagulated Past medical history: Reviewed Review of systems General: Patient has no head injury or loss of consciousness HEENT: As in HPI Neck: No neck pain Cardiovascular: Patient denies any chest pain or palpitations Chest wall: No chest wall contusions Respiratory: There is no shortness of breath GI: There is no nausea vomiting diarrhea or abdominal pain, no abdominal wall contusions Skin: No lacerations or abrasions Neurological: Patient has no memory loss, confusion, or any focal weakness Psychiatric: No recent behavioral changes Back: No back pain, no problems with ambulation Skill skeletal: No extremity injury EXAM Physical Exam Narrative Exam Narrative: Physical exam Vitals reviewed General: Does not appear in significant distress, no obvious injuries HEENT: Swelling of the nose, however there is no deformity to either side. There is no nasal septal hematoma although the nasal airway seems to be somewhatswollen. No postnasal drip. Full range of motion of the eyes without pain no tenderness in the orbital region. Head: No head injury Eyes: Extraocular movements intact Neck: No C-spine tenderness with full range of motion Heart: Regular rate normal pulses Chest wall: No chest wall pain Lungs clear lungs bilaterally with normal inspiration and expiration without tachypnea GI: Abdomen is soft and nontender there is no mass no guarding no abdominal wallcontusion : Stable pelvis Musculoskeletal: Moves all extremities without any signs of trauma Skin: No abrasions or laceration Neurological: Patient is alert and oriented with no focal deficits Const Vital Signs: 02/10/23 09:25 Temperature 97.9 F Temperature Source Temporal Pulse Rate 110 H Respiratory Rate 18 Blood Pressure 190/111 H Blood Pressure Mean 137 Pulse Ox 99 Oxygen Delivery Method Room Air MDM MDM MDM Narrative Medical decision making narrative: At this time patient could have a nasal fracture however the treatment would notchange. I talked to the patient about an x-ray or CT and we will defer at this time. Patient had no other head injury or loss of consciousness and does not meet criteria for head CT. I will discharge her, she can take [id number] NSAIDs I offered opiate analgesics but her pain is not bad enough. Because of the swelling and bleeding in the nose I will write her a short course of clindamycin. Discharge Plan Triage Chief Complaint: Trauma ED Provider: Octavio Sierra Dx/Rx/DC Orders Clinical Impression: Contusion of nose, Fall Instructions: ED CONTUSION Face [w/ Wake Up] Prescriptions: New clindamycin HCl 150 mg capsule 150 mg PO TID 5 Days Qty: 15 0RF No Action calcium carbonate-vitamin D3 500 mg(1,250mg) -400 unit tablet 1 tab PO BID PROBIOTIC 1 tab PO DAILY Prolia 60 mg/mL syringe 60 mg subcut [id number] venlafaxine 75 mg capsule,extended release 24hr 75 mg PO DAILY 90 Days Qty: 90 4RF amlodipine 10 mg tablet 10 mg PO DAILY Qty: 90 3RF anastrozole 1 mg tablet See Rx Instructions .ROUTE .COMPLEX Qty: 90 3RF Dose Instruction: TAKE 1 TABLET DAILY Rx Instructions: TAKE 1 TABLET DAILY atorvastatin 20 mg tablet 20 mg PO DAILY Qty: 60 2RF Primary Care Provider: Tricia Frausto Referrals: Tricia Frausto MD [Primary Care Provider] - 3-5 Days Disposition Disposition: Home, Self Care What to do if you have Problems For any increased pain, shortness of breath, bleeding, nausea or vomiting, chestpain, or any unexpected problems, contact your Primary Care Provider. Call [facility] ([phone]) or report to the closest Emergency Room. Call 911 if necessary. 02/10/23 0943 <Electronically signed by Octavio Sierra MD> Cosigner Signature (if applicable): CC: Dr. Tricia Frausto MD ~ Signed [facility] Work Phone: Evaluation note Note Date & Type Note Facility Evaluation note Diagnosis Onset Date Potential for delayed tissue healing acute Pain, joint, multiple sites chronic Shingles chronic Hyperlipidemia chronic Hypertension chronic Shingles chronic Hyperlipidemia chronic Hypertension chronic Osteopenia chronic Tachycardia chronic [facility] Work Phone: Evaluation note Note Date & Type Note Facility Evaluation note Diagnosis Onset Date HER2-positive carcinoma of left breast acute Encounter for routine gyneco logical examination noneactive Flu vaccine need acute Hyperlipidemia chronic Hypertension chronic Pain of left heel chronic Influenza A acute Cough noneactive [facility] Work Phone: Evaluation note Note Date & Type Note Facility Evaluation note Diagnosis Onset Date Anxiety and depression chron ic Carpal tunnel syndrome chron ic Hyperlipidemia chronic Hypertension chronic 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 Work Phone: Evaluation note Note Date & Type Note Facility Evaluation note Diagnosis Onset Date Anxiety and depression chron ic Deviated nasal septum chroni c Hyperlipidemia chronic Hypertension chronic [facility] Work Phone: Chief Complaint and Reason for Visit Chief Complaint EYE ISSUES 3 M FU 3 M FU Reason for Visit Potential for delaye d tissue healing Pain, joint, multiple sites Shingles Hyperlipidemia Hypertension Shingles Hyperlipidemia Hypertension Osteopenia Tachycardia Chief Complaint Annual ([facility]TER) 4 M FU XRAY COUGH/CONGESTION/SORE THROAT WORSENING FLU SYMPTOMS Reason for Visit HER2-positive carcin yue of left breast Encounter for routine gynecological examination Flu vaccine need Hyperlipidemia Hypertension Pain of left heel Influenza A Cough Chief Complaint 5 M FU Reason for Visit Anxiety and depressi on Carpal tunnel syndrome Hyperlipidemia Hypertension Chief Complaint 5 M FU SCREENING/OSTEO 6MO -LABS PRIOR Prolia Annual ([place]) NOSE Reason for Visit Anxiety and depressi on Carpal tunnel syndrome Hyperlipidemia Hypertension 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 Hot flashes Osteopenia Diarrhea Osteopenia Estrogen receptor positive status [ER+] HER2-positive carcinoma of left breast Hx of mastectomy Encounter for routine gynecological examination Chief Complaint 5 M FU PREOP EKG/LABS SCANNED ORDER Reason for Visit Anxiety and depressi on Deviated nasal septum Hyperlipidemia Hypertension Family History No Family History Records Found Relationship Condition Age at Onset Recorded Date/T apoorva mother Diabetes mellitus Unknown daughter Diabetes mellitus Unknown Advance Directives No Advanced Directives Records Found Advance Directive Response Recorded Date/ Time Advance Directives No June 29, 2021 4:51pm Living Will No June 29 4:51pm Power of File System Installer No June 29, 2021 4:51pm Advance Directive Response Recorded Date/ Time Advance Directives No December 28 1:00pm Living Will No December 28, 2021 1:00pm Power of File System Installer No December 28 1:00pm Advance Directive Response Recorded Date/ Time Advance Directives No December 28 2:00pm Living Will No December 28, 2021 2:00pm Power of File System Installer No December 28 2:00pm Advance Directive Response Recorded Date/ Time Advance Directives on File No Augus 2021 2:00pm Advance Directives No December 28 2:00pm Living Will No February 10, 2023 10:50am Power of File System Installer No January 10:50am Advance Directive Response Recorded Date/ Time Advance Directives No December 28 1:00pm Living Will No February 10, 2023 9:50am Power of File System Installer No January 9:50am Summary Purpose Additional Source Comments Goals (unrecognized section and content) Goals may be documented in a n alternate sectionGoals may be documented in an alternate sectionGoals may be documented in an alternate sectionGoals may be documented in an alternate sectionGoals may be documented in an alternate section Care Teams (unrecognized sec tion and content) Team Status: Active Member Role Status Dates No Primary Care Physician Family Provider Active Dr. Tricia Frausto MD Primary Care Provider Active Team Status: Inactive Member Role Status Dates Dr. Tricia Frausto MD Primary Care P cassandra, Attending Provider, Referring Provider Active Team Status: Inactive Member Role Status Dates Dr. Tricia Frausto MD Primary Care Provider, Refer ring Provider Active Dr. [place] Pugh MD Attending Provider Active Team Status: Inactive Member Role Status Dates Dr. Tricia Frausto MD Primary Care Provider, Refer ring Provider Active Ifeoma Becerra ESL TEACHER, ESL TEACHER-C Attending Provider Active Team Status: Active Member Role Status Dates No Primary Care Physician Primary Care Provider, Famil y Provider Active Dr. [place] Pugh MD Attending Provider Active Dr. Dameon Vo MD Referring Provider Active Dr. Anderson Seay MD Other Provider Active Team Status: Inactive Member Role Status Dates Dr. Tricia Frausto MD Primary Care Provider Active Dr. [place] Pugh MD Attending Provider, Referrin g Provider Active Team Status: Inactive Member Role Status Dates Dr. Tricia Frausto MD Primary Care Provider Active Dr. Octavio Sierra MD Emergency Provider Active Team Status: Inactive Member Role Status Dates Dr. Tricia Frausto MD Primary Care Provider Active Dr. Norman Coreas MD Attending Provider, Refe rring Provider Active INFORMATION SOURCE (unrecogn ized section and content) DATE CREATED AUTHOR 05/21/2024 [facility] FOR RECORDS PERTAINING TO PATIENTS WHO ARE OR HAVE BEEN ENROLLED IN A CHEMICAL DEPENDENCY/SUBSTANCEABUSE PROGRAM, SOME INFORMATION MAY BE OMITTED. This clinical summary was aggregated from multiple sources. Caution should be exercised in using it in the provision of clinical care. This summary normalizes information from multiple sources, and as a consequence, information in this document may materially change the coding, format and clinical context of patient data. In addition, data may be omitted in some cases. CLINICAL DECISIONS SHOULD BE BASED ON THE PRIMARY CLINICAL RECORDS. [employer] provides no warranty or guarantee of the accuracy or completeness of information in this document.
[2024-11-16 12:36] LABS: Absolute Lymphocyte Count 1.48 X10^3/uL (0.83-4.51); Absolute Neutrophil Count 2.7 X10^3/uL (2.0-7.7); Basophil# 0.02 X10^3/uL; Basophil% 0.4 % (0-1); Eosinophil# 0.18 X10^3/uL; Eosinophils% 3.8 % (0-5); Hematocrit 40.8 % (37-47); Hemoglobin 13.6 g/dL (12.0-15.0); Lymphocyte # 1.48 X10^3/ul (0.83-4.51); Lymphocyte % 31.2 % (19-41); Mean Corp Hgb Conc 33.3 g/dL (32-36); Mean Corpuscular Hgb 29.3 pg (27.0-32.0); Mean Corpuscular Volume 87.9 fL (81-99); Mean Platelet Vol. 9.7 fl (6.2-12.0); Monocyte# 0.36 X10^3/uL; Monocyte% 7.6 % (0-10); NRBC Flagged by Analyzer 0 % (0-5); Neutrophil # 2.69 X10^3/uL (2.7-7.7); Neutrophil % 56.8 % (47-70); Platelet Count 289 K/mm3 (150-450); RBC Distribution Width CV 13.2 % (11.6-14.6); RBC Distribution Width SD 42.2 fl (35.1-43.9); Red Blood Count 4.64 M/mm3 (4.2-5.4); White Blood Count 4.7 K/mm3 (4.4-11.0)
[2024-11-16 15:34] LABS: ALB/GLOB Ratio 1.5 RATIO (0.9-2.4); AST(SGOT) 31 U/L (<=31); Alanine Aminotransfer ALT/SGPT 37 U/L (<=34); Albumin, Serum 4.4 g/dL (3.5-5.0); Alkaline Phosphatase 209 U/L (35-104); Anion Gap 12 (5-15); BUN 22 mg/dL (4-19); BUN/Creat Ratio 22.4 RATIO (10-20); Carbon Dioxide 25.5 mmol/L (21.0-32.0); Chloride 104 mmol/L (98-108); Cholesterol 178 mg/dL (<=200); EST Glomerular Filtration Rate 65 (>60); Glucose 100 mg/dL (70-99); High Density Lipoprotein 60 mg/dL; Low Density Lipoprotein Calc. 93 mg/dL; Potassium 4.6 mmol/L (3.3-5.1); Protein, Total 7.4 g/dL (5.9-8.4); Sodium Level 141 mmol/L (133-145); Total Bilirubin 0.29 mg/dL (0.00-1.30); Triglycerides 122 mg/dL; Very Low Density Lipoprotein 24 mg/dL (5-40); cholesterol:hdl ratio screen 2.96
== END | disposition home or self-care (01) ==
LOC: BIMLAB 08:26
PROVIDERS: PCP Internal Medicine; Referring Provider Internal Medicine; Visit Provider Internal Medicine
DX: I10 Essential (primary) hypertension (principal); E78.5 Hyperlipidemia, unspecified; F32.A Depression, unspecified; F41.9 Anxiety disorder, unspecified
CPT/HCPCS: 36415; 80053; 80061; 85025

== ENCOUNTER → 2024-12-05 | Outpatient (CLI) | payer OTHER, SELFPAY ==
[2024-12-05 13:24] LABS: AST(SGOT) 25 U/L (<=31); Alanine Aminotransfer ALT/SGPT 22 U/L (<=34); Albumin, Serum 4.3 g/dL (3.5-5.0); Alkaline Phosphatase 202 U/L (35-104); Anion Gap 11 (5-15); BUN 19 mg/dL (4-19); BUN/Creat Ratio 18.5 RATIO (10-20); Calcium,Total 9.6 mg/dL (7.6-11.0); Carbon Dioxide 23.4 mmol/L (21.0-32.0); Chloride 103 mmol/L (98-108); Globulin 3.0 g/dL (2.2-4.2); Glucose 90 mg/dL (70-99); Potassium 4.9 mmol/L (3.3-5.1)
[2024-12-06 04:07] LABS: GGTP 14 IU/L (0-60)
== END | disposition home or self-care (01) ==
LOC: BIMLAB 09:38
PROVIDERS: PCP Internal Medicine; Referring Provider Internal Medicine; Visit Provider Internal Medicine
DX: R74.8 Abnormal levels of other serum enzymes (principal)
CPT/HCPCS: 36415; 80053; 82977

== ENCOUNTER → 2024-12-19 | Outpatient (CLI) | payer OTHER, SELFPAY ==
--- NOTE | 2024-12-19 09:03 | BD_ITS ---
PROCEDURE: DEXA BONE DENSITY STUDY 12/19/2024 REASON FOR EXAM: OSTEOPENIA F, age 59 y/o . Postmenopausal. TECHNIQUE: DEXA BONE DENSITY STUDY COMPARISON: Priors were compared FINDINGS: BMD and T-SCORES Lumbar spine: 0.967 g/cm2, T-score -0.7 Levels: L1 through L4 Left femoral neck: 0.661 g/cm2, T-score -1.7 BD/Dexa Bone Density Study IMPRESSION: Patient's bone density reveals osteopenia with an estimated 10 year risk for hi p fracture of 0.6% and for a Major osteoporotic fracture of 7.7%. This fracture risk estimate was calculated using FRAX versio n 3.08. Reading Location: [id number]
--- NOTE | 2024-12-19 10:00 | BI_ITS ---
EXAM: SCREEN MAMM (CAD) W/JORDY UNI R DATE: 12/19/2024 CLINICAL HISTORY: F, Age 59 y/o , SCREENING TECHNIQUE: SCREEN MAMM (CAD) W/JORDY UNI R COMPARISON: Prior exam(s) dated 12/19/2023, 12/15/2022, 12/14/2021. FINDINGS: TISSUE DENSITY: The breasts are heterogeneously dense, which may obscure small masses. The mammogram demonstrates that the patient has dense breasts. Supplemental screening with whole breast ultrasound or MRI may be considered for further evaluation. Unilateral Right Breast Mammographic Findings: No significant masses, calcifications or other abnormalities are identified. BI/SCREEN MAMM (CAD) W/JORDY UNI R IMPRESSION: There is no mammographic evidence of malignancy. OVERALL FINAL ASSESSMENT BI-RADS 1: NEGATIVE. RECOMMENDATION: Routine annual follow-up in 1 Year A letter with findings and recommendations will be mailed to the patient. Reading Location: [id number]
== END | disposition home or self-care (01) ==
LOC: OPBI 08:59
PROVIDERS: PCP Internal Medicine; Referring Provider Internal Medicine Hematology & Oncology; Visit Provider Internal Medicine Hematology & Oncology
DX: Z12.31 Encounter for screening mammogram for malignant neoplasm of breast (principal); M85.89 Other specified disorders of bone density and structure, multiple sites; Z85.3 Personal history of malignant neoplasm of breast
CPT/HCPCS: 77063; 77067; 77080